=== PATIENT | male | born 1995 | race Caucasian/White ===

== ENCOUNTER 2020-09-27 11:38 | Emergency (ER) | payer MEDICAID, SELFPAY ==
--- NOTE | 2020-09-27 11:40 | ED.PSYCH ---
HPI - Psych General Chief Complaint: Psychiatric Symptoms Stated Complaint: SECTION 12 BY [facility]N,MED NONCOMP,HYPERSEXUAL Time Seen by Provider: 09/27/20 11:40 Source: patient and EMS Mode of arrival: EMS Limitations: other (agitated) History of Present Illness MD complaint: other (agitation, aggressive at skilled nursing, hypersexual refusing medications) Onset (ago): day(s) (few) Duration: intermittent History of same: Yes Relieving factors: none Exacerbating factors: none Context: not taking psychiatric medications Associated symptoms: denies other symptoms Treatments prior to arrival: placed on mental health hold Related Data Home Medications Medication Instructions Recorded Confirmed atenolol 25 mg PO DAILY 09/27/20 09/27/20 benztropine 2 mg PO DAILY 09/27/20 09/27/20 clonazepam 0.5 mg PO DAILY 09/27/20 09/27/20 clonidine HCl 0.1 mg PO DAILY 09/27/20 09/27/20 clozapine 25 mg PO DAILY 09/27/20 09/27/20 haloperidol [Haldol] 5 mg PO Q6H PRN 09/27/20 09/27/20 haloperidol decanoate [Haldol 200 mg IM Q4W 09/27/20 09/27/20 Decanoate] lamotrigine 200 mg PO DAILY 09/27/20 09/27/20 lithium carbonate 900 mg PO DAILY 09/27/20 09/27/20 multivitamin 1 tab PO DAILY 09/27/20 09/27/20 quetiapine [Seroquel] 50 mg PO Q6H PRN 09/27/20 09/27/20 Allergies Allergy/AdvReac Type Severity Reaction Status Date / Time No Known Allergies Allergy Unverified 05/17/20 19:19 [No Known Allergies*] Review of Systems Review of Systems: ROS unable to be obtained due to patient agitated and being uncooperative PMF Past Medical History Attestation statement: The following information was validated with the patient. Medical History Bipolar 1 disorder Schizoaffective disorder Social History Social History Alcohol intake: former Smoking Status: Current every day smoker Use of substances other than those prescribed or required for medical reasons: Unknown Substance Use Type: Marijuana Advance Directives: No Advance Directives Information Provided: No Physical Exam Vital Signs: Vital Signs: Last Vital Signs Temp 98.7 F 09/27/20 11:59 Pulse 74 09/27/20 11:59 Resp 16 09/27/20 11:59 BP 102/85 09/27/20 11:59 Pulse Ox 99 09/27/20 11:59 Body Mass Index 26.9 Appearance: Alert. Oriented X3. agitated, uncooperative Eyes: Pupils equal, round and reactive to light. ENT: Pharynx normal. Neck: Normal inspection. Neck supple. CVS: Normal heart rate and rhythm. Pulses normal. Respiratory: No respiratory distress. Breath sounds normal. Abdomen: Soft and nontender. Skin: Skin warm and dry. Normal skin color. Normal skin turgor. Extremities: No lower extremity edema. No calf ttp Neuro: steady gait, moves all extremities. Psych: hyperverbal, agitated, very upset Course Course Course Narrative: signed out pending [facility]N consult MDM - Psych MDM Narrative Medical decision making narrative: 25 yo male with schizoaffective disorder, bipolar not compliant with medications - here on section 12 for agitation, hypersexual with skilled nursing staff - will need labs, BHN consult Restraints Face to Face Assessment: Face to Face Assessment: Lab Data Result diagrams: 09/27/20 12:23 09/27/20 12:23 Labs: Lab Results 09/27/20 09/27/20 09/27/20 Range/Units 12:23 12:23 12:23 WBC 7.4 (4.8-10.8) X10*3/uL RBC 4.25 L (4.60-5.80) X10*6/uL Hgb 12.3 L (14.0-18.0) g/dl Hct 36.9 L (42-52) % MCV 86.8 (80-98) fL MCH 28.9 (27.0-33.0) pg MCHC 33.3 (31.0-36.0) g/dl RDW 12.4 (11.0-16.0) % Plt Count 237 (160-400) X10*3/uL MPV 10.2 (9.4-12.4) fL Immature Gran % (Auto) 0.1 (0.0-0.4) % Neut % (Auto) 60.1 (45-73) % Lymph % (Auto) 34.5 (20-40) % [place] % (Auto) 5.3 (2-11) % Eos % (Auto) 0.0 (0-4) % Baso % (Auto) 0.0 (0-2) % Lymph # (Auto) 2.6 (1.2-4.9) X10*3/uL Ramsey # (Auto) 0.4 (0.1-1.2) X10*3/uL Eos # (Auto) 0.0 (0.0-0.4) X10*3/uL Baso # (Auto) 0.0 (0.0-0.2) X10*3/uL Abs Immat Gran (auto) 0.01 (0.00-0.03) X10*3/uL Absolute Neuts (auto) 4.5 (2.0-8.3) X10*3/uL Absolute Nucleated RBC 0.000 (0.0-0.012) X10*3/uL Nucleated RBC % (auto) 0.0 (0.0-0.2) /100WBC Sodium 136 (135-145) mmol/L Potassium 3.8 (3.3-5.1) mmol/l Chloride 102 (96-108) mmol/L Carbon Dioxide 27 (22-29) mmol/L Anion Gap 11 L (12-20) BUN 11 (9-16) mg/dL Creatinine 0.81 (0.5-1.4) mg/dL Estim Creat Clear Calc 128.0 Estimated GFR > 60 Random Glucose 116 H (60-115) mg/dL Calcium 8.6 (8.4-10.2) mg/dL Total Bilirubin 0.3 (0.0-1.0) mg/dL Direct Bilirubin < 0.2 (0.0-0.5) mg/dL AST 22 (5-37) U/L ALT 16 (0-40) U/L Alkaline Phosphatase 89 (39-117) U/L Total Protein 5.9 L (6.5-8.0) g/dL Albumin 3.8 (3.5-5.0) g/dL [place] (0.60-1.20) mmol/L COVID-19 ([facility]HEEN) Negative (Negative) COVID-19 Clin Com See Note 09/27/20 Range/Units 12:23 WBC (4.8-10.8) X10*3/uL RBC (4.60-5.80) X10*6/uL Hgb (14.0-18.0) g/dl Hct (42-52) % MCV (80-98) fL MCH (27.0-33.0) pg MCHC (31.0-36.0) g/dl RDW (11.0-16.0) % Plt Count (160-400) X10*3/uL MPV (9.4-12.4) fL Immature Gran % (Auto) (0.0-0.4) % Neut % (Auto) (45-73) % Lymph % (Auto) (20-40) % Ramsey % (Auto) (2-11) % Eos % (Auto) (0-4) % Baso % (Auto) (0-2) % Lymph # (Auto) (1.2-4.9) X10*3/uL [place] # (Auto) (0.1-1.2) X10*3/uL Eos # (Auto) (0.0-0.4) X10*3/uL Baso # (Auto) (0.0-0.2) X10*3/uL Abs Immat Gran (auto) (0.00-0.03) X10*3/uL Absolute Neuts (auto) (2.0-8.3) X10*3/uL Absolute Nucleated RBC (0.0-0.012) X10*3/uL Nucleated RBC % (auto) (0.0-0.2) /100WBC Sodium (135-145) mmol/L Potassium (3.3-5.1) mmol/l Chloride (96-108) mmol/L Carbon Dioxide (22-29) mmol/L Anion Gap (12-20) BUN (9-16) mg/dL Creatinine (0.5-1.4) mg/dL Estim Creat Clear Calc Estimated GFR Random Glucose (60-115) mg/dL Calcium (8.4-10.2) mg/dL Total Bilirubin (0.0-1.0) mg/dL Direct Bilirubin (0.0-0.5) mg/dL AST (5-37) U/L ALT (0-40) U/L Alkaline Phosphatase (39-117) U/L Total Protein (6.5-8.0) g/dL Albumin (3.5-5.0) g/dL [place] 1.05 (0.60-1.20) mmol/L COVID-19 ([facility]HEEN) (Negative) COVID-19 Clin Com Discharge Plan Discharge Clinical Impression: Schizoaffective disorder Qualifiers: Schizoaffective disorder type: other Qualified Code(s): F25.8 - Other schizoaffective disorders Prescriptions: No Action clonidine HCl 0.1 mg Tablet 0.1 mg PO DAILY RF: 0 haloperidol [Haldol] 5 mg Tablet 5 mg PO Q6H PRN (Reason: Agitation) RF: 0 haloperidol decanoate [Haldol Decanoate] 100 mg/mL Solution 200 mg IM Q4W RF: 0 clonazepam 0.5 mg Tablet 0.5 mg PO DAILY RF: 0 lithium carbonate 450 mg Tablet Extended Release 900 mg PO DAILY RF: 0 clozapine 25 mg Tablet,Disintegrating 25 mg PO DAILY RF: 0 quetiapine [Seroquel] 50 mg Tablet 50 mg PO Q6H PRN (Reason: Agitation) RF: 0 multivitamin Tablet 1 tab PO DAILY RF: 0 lamotrigine 200 mg Tablet 200 mg PO DAILY RF: 0 atenolol 25 mg Tablet 25 mg PO DAILY RF: 0 benztropine 2 mg Tablet 2 mg PO DAILY RF: 0
[2020-09-27 11:49] VITALS: BP 102/85; PULSE 74; RESP 16; TEMP 37.1; O2SAT 99; BMI 26.9
[2020-09-27 11:59] VITALS: BP 102/85; PULSE 74; RESP 16; TEMP 37.1; O2SAT 99
--- NOTE | 2020-09-27 12:06 | PC.NURSE ---
Per [facility], pt needs evaluation after being medically cleared
--- NOTE | 2020-09-27 12:22 | PC.NURSE ---
PACT team contacted for currently medicaiton list, med list to be faxed to pod.
[2020-09-27 12:30] LABS: MANUAL DIFF FLAG NO
[2020-09-27 12:36] LABS: Hematocrit 36.9 % (42-52); Hemoglobin 12.3 g/dl (14.0-18.0); Imm Gran Abs Auto 0.01 X10*3/uL (0.00-0.03); Imm Gran Pct Auto 0.1 % (0.0-0.4); Lymphocytes Absolute Auto 2.6 X10*3/uL (1.2-4.9); Lymphocytes Percent Auto 34.5 % (20-40); Mean Corpuscular HGB Conc 33.3 g/dl (31.0-36.0); Mean Corpuscular Hemoglobin 28.9 pg (27.0-33.0); Mean Corpuscular Volume 86.8 fL (80-98); Mean Platelet Volume 10.2 fL (9.4-12.4); Monocytes Absolute Auto 0.4 X10*3/uL (0.1-1.2); Monocytes Percent Auto 5.3 % (2-11); Neutrophils Absolute Auto 4.5 X10*3/uL (2.0-8.3); Neutrophils Percent Auto 60.1 % (45-73); Platelet Count 237 X10*3/uL (160-400); Red Blood Count 4.25 X10*6/uL (4.60-5.80); Red Cell Distribution Width 12.4 % (11.0-16.0); White Blood Count 7.4 X10*3/uL (4.8-10.8)
--- NOTE | 2020-09-27 12:47 | PC.NURSE ---
medication list received from PACT team - [phone]
[2020-09-27 12:51] LABS: COVID-19 Test Negative (Negative)
[2020-09-27 12:55] LABS: Lithium 1.05 mmol/L (0.60-1.20)
[2020-09-27 13:03] LABS: Alanine Aminotransferase 16 U/L (0-40); Albumin Level 3.8 g/dL (3.5-5.0); Alkaline Phosphatase 89 U/L (39-117); Anion Gap 11 (12-20); Aspartate Amino Transferase 22 U/L (5-37); Bilirubin Direct < 0.2 mg/dL (0.0-0.5); Bilirubin Total 0.3 mg/dL (0.0-1.0); Blood Urea Nitrogen 11 mg/dL (9-16); Calcium 8.6 mg/dL (8.4-10.2); Carbon Dioxide 27 mmol/L (22-29); Chloride 102 mmol/L (96-108); Estimated Glomerular Filt Rate > 60; Glucose Random 116 mg/dL (60-115); Potassium 3.8 mmol/l (3.3-5.1); Sodium 136 mmol/L (135-145); Total Protein 5.9 g/dL (6.5-8.0)
--- NOTE | 2020-09-27 13:37 | PC.NURSE ---
JOSEE faxed and called.
[2020-09-27 16:21] VITALS: BP 103/50; PULSE 55; RESP 16; TEMP 36.3; O2SAT 97
--- NOTE | 2020-09-27 17:08 | PC.NURSE ---
[facility] at bedside for eval
[2020-09-27 17:44] LABS: Amphetamine Screen Urine Not Detected (Not Detect); Barbiturates, Urine Not Detected (Not Detect); Benzodiazepines Screen Urine Not Detected (Not Detect); Cannabinoid Screen Urine POSITIVE (Not Detect); Cocaine Screen Urine Not Detected (Not Detect); Opiate Screen Urine Not Detected (Not Detect); Phencyclidine Screen Urine Not Detected (Not Detect)
--- NOTE | 2020-09-27 19:13 | PC.NURSE ---
Report received. PT is laying in bed quietly. Just seen by N. PT will be inpatient bed search.
[2020-09-27 21:34] VITALS: BP 134/77; PULSE 67; RESP 20; TEMP 36.3; O2SAT 97
[2020-09-28] VITALS: BP 94/64; PULSE 58; RESP 16; TEMP 36.1; O2SAT 97
[2020-09-28 06:00] VITALS: BP 103/55; PULSE 50; RESP 16; TEMP 36.3; O2SAT 98
--- NOTE | 2020-09-28 07:03 | PC.NURSE ---
Report received. PT currently sleeping, respirations even and unlabored, in no apprent distress. Pt is inpatient bedsearch.
[2020-09-28] MEDS: clonazePAM 0.5 MG TABLET PO (09:08)
[2020-09-28] MEDS: Lithium Carbonate ER 450 MG TABLET.ER 900 MG PO (09:08)
[2020-09-28] MEDS: Benztropine Mesylate 1 MG TABLET 2 MG PO (09:08)
[2020-09-28] MEDS: cloZAPine 25 MG TABLET PO (09:08)
[2020-09-28] MEDS: lamoTRIgine 100 MG TABLET 200 MG PO (09:08)
[2020-09-28] MEDS: Multivitamin TABLET 1 TAB PO (09:09)
[2020-09-28 09:11] VITALS: BP 144/73; PULSE 63
[2020-09-28] MEDS: atenoloL 25 MG TABLET PO (09:11)
[2020-09-28] MEDS: cloNIDine HCL 0.1 MG TABLET PO (09:11)
[2020-09-28 18:06] VITALS: BP 116/65; RESP 18
[2020-09-28] MEDS: QUEtiapine Fumarate 50 MG TABLET PO (20:00)
[2020-09-28] MEDS: HaloperidoL 5 MG TABLET PO (20:00)
--- NOTE | 2020-09-28 20:07 | PC.NURSE ---
Patient visible, hyper-verbal, disorganized thought process, thought content paranoid, tangential, just got seen by [facility], no update on plan, patient accepted PRN Haldol 5 mg and Serequel 50 mg as ordered, will continue to monitor.
[2020-09-28 21:12] VITALS: BP 118/66; PULSE 58; RESP 17; TEMP 36.7; O2SAT 100
--- NOTE | 2020-09-28 22:00 | PC.NURSE ---
Patient in his room currently, struggling for sleep, out of room multiple times for food and refreshment, no behavior concerns at this time, denied distress, will continue to monitor.
[2020-09-29] VITALS (7 sets, daily range): BP systolic 105–142; BP diastolic 50–79; PULSE 68–78; RESP 16–20; TEMP 36.6–36.9; O2SAT 93–98
--- NOTE | 2020-09-29 07:08 | PC.NURSE ---
Report received from JHOAN Coreas. Pt resting, resp unlabored.
[2020-09-29] MEDS: clonazePAM 0.5 MG TABLET PO (08:51)
[2020-09-29] MEDS: lamoTRIgine 100 MG TABLET 200 MG PO (08:51)
[2020-09-29] MEDS: cloNIDine HCL 0.1 MG TABLET PO (08:52)
[2020-09-29] MEDS: Benztropine Mesylate 1 MG TABLET 2 MG PO (08:52)
[2020-09-29] MEDS: Lithium Carbonate ER 450 MG TABLET.ER 900 MG PO (08:52)
[2020-09-29] MEDS: Multivitamin TABLET 1 TAB PO (08:52)
[2020-09-29] MEDS: atenoloL 25 MG TABLET PO (08:53)
[2020-09-29] MEDS: cloZAPine 25 MG TABLET PO (08:57)
--- NOTE | 2020-09-29 09:05 | PC.NURSE ---
Pt awake, ate breakfast, cooperative w/ medications. Pt cheerful, laughing inappropriately at times, pleasant
--- NOTE | 2020-09-29 10:51 | PC.NURSE ---
Pt resting, resp unlabored. Pt seen by JOSEE,
--- NOTE | 2020-09-29 12:20 | PC.NURSE ---
Pt resting, resp unlabored.
--- NOTE | 2020-09-29 13:19 | PC.NURSE ---
Pt awake, affect even, pleasant.
--- NOTE | 2020-09-29 14:07 | PC.NURSE ---
Pt resting, resp unlabored.
[2020-09-29] MEDS: QUEtiapine Fumarate 50 MG TABLET PO ×2 (15:06→21:49)
--- NOTE | 2020-09-29 15:07 | PC.NURSE ---
Pt reporting anxiety r/t to length of stay and requesting PRN seroquel for anxiety.
--- NOTE | 2020-09-29 15:33 | PC.NURSE ---
Report received, pt on the phone at current, calm and cooperative, no complaints at this time.
--- NOTE | 2020-09-29 17:04 | PC.NURSE ---
Pt watching TV in the common area, calm and cooperative, no complaints at this time.
--- NOTE | 2020-09-29 18:17 | PC.NURSE ---
Appears to be responding to internal stimuli, laughing, self-dialoguing.
--- NOTE | 2020-09-29 19:02 | PC.NURSE ---
Patient sitting in milieu watching TV, calm and quiet, denied distress, per report patient had decent day with good behavioral control, will continue to monitor.
[2020-09-29] MEDS: HaloperidoL 5 MG TABLET PO (21:49)
[2020-09-30] VITALS (7 sets, daily range): BP systolic 112–139; BP diastolic 55–87; PULSE 67–92; RESP 20; TEMP 36.6–36.8; O2SAT 97–98
--- NOTE | 2020-09-30 07:38 | PC.NURSE ---
Report received from JHOAN Coreas. Pt resting, resp unlabored.
[2020-09-30] MEDS: cloNIDine HCL 0.1 MG TABLET PO (08:42)
[2020-09-30] MEDS: Benztropine Mesylate 1 MG TABLET 2 MG PO (08:42)
[2020-09-30] MEDS: Multivitamin TABLET 1 TAB PO (08:43)
[2020-09-30] MEDS: lamoTRIgine 100 MG TABLET 200 MG PO (08:43)
[2020-09-30] MEDS: Lithium Carbonate ER 450 MG TABLET.ER 900 MG PO (08:43)
[2020-09-30] MEDS: cloZAPine 25 MG TABLET PO (08:43)
[2020-09-30] MEDS: atenoloL 25 MG TABLET PO (08:49)
[2020-09-30] MEDS: clonazePAM 0.5 MG TABLET PO (08:49)
--- NOTE | 2020-09-30 08:56 | PC.NURSE ---
Pt awake, pleasant, occasionally laughing to himself, cooperative w/ medications. Pt seen by JOSEE.
[2020-09-30] MEDS: QUEtiapine Fumarate 50 MG TABLET PO ×2 (09:29→21:11)
--- NOTE | 2020-09-30 11:53 | PC.NURSE ---
Pt resting, resp unlabored
[2020-09-30] MEDS: HaloperidoL 5 MG TABLET PO ×2 (13:42→21:11)
--- NOTE | 2020-09-30 13:44 | PC.NURSE ---
Pt requesting medication for anxiety- given as requested.
--- NOTE | 2020-09-30 14:31 | PC.NURSE ---
Pt resting in room, affect even.
--- NOTE | 2020-09-30 15:38 | PC.NURSE ---
Pt listening to music on headphones, pacing, states medications effective for anxiety.
--- NOTE | 2020-09-30 16:33 | PC.NURSE ---
Pt listening to headphones - required redirection x2 for mildly intrusive behaviors- accepted redirection without difficulty.
--- NOTE | 2020-09-30 17:29 | PC.NURSE ---
Pt out in common area, watching television with another pt.
--- NOTE | 2020-09-30 18:13 | PC.NURSE ---
Pt appears increasingly restless, currently in common area watching television while listening to headphones.
--- NOTE | 2020-09-30 19:45 | PC.NURSE ---
Patient wandering in POD, hyper-verbal, hyperactive, mood pleasant, denied distress, express needs well, in good behavioral control, will continue to monitor.
--- NOTE | 2020-09-30 22:00 | PC.NURSE ---
Patient requested his PRN, administered as ordered, denied distress, patient continues to hyperactive, will continue to monitor.
[2020-10-01 06:00] VITALS: RESP 18; TEMP 36.4
[2020-10-01 08:45] VITALS: BP 108/66; PULSE 60; RESP 16; TEMP 37.1; O2SAT 98
[2020-10-01 09:28] VITALS: BP 108/66; PULSE 60
[2020-10-01] MEDS: lamoTRIgine 100 MG TABLET 200 MG PO (09:28)
[2020-10-01] MEDS: atenoloL 25 MG TABLET PO (09:28)
[2020-10-01] MEDS: Lithium Carbonate ER 450 MG TABLET.ER 900 MG PO (09:28)
[2020-10-01 09:29] VITALS: BP 108/66; PULSE 60
[2020-10-01] MEDS: clonazePAM 0.5 MG TABLET PO (09:29)
[2020-10-01] MEDS: cloNIDine HCL 0.1 MG TABLET PO (09:29)
[2020-10-01] MEDS: cloZAPine 25 MG TABLET PO (09:29)
[2020-10-01] MEDS: Multivitamin TABLET 1 TAB PO (09:30)
[2020-10-01] MEDS: Benztropine Mesylate 1 MG TABLET 2 MG PO (09:30)
[2020-10-01 12:00] VITALS: RESP 16
[2020-10-01] MEDS: QUEtiapine Fumarate 50 MG TABLET PO (13:04)
[2020-10-01 17:12] LABS: COVID-19 Test Negative (Negative); IDNOW Serial# 9DD0AD1C
--- NOTE | 2020-10-01 19:05 | PC.NURSE ---
Report received. PT is watching TV in the common area. Calm and cooperative. Inpatient bed search.
== END 2020-10-01 21:30 ==
PROVIDERS: Physician Assistant; Emergency Provider Emergency Medicine
DX: F25.8 Other schizoaffective disorders (principal); Z20.822 Contact with and (suspected) exposure to COVID-19; Z91.14 Patient's other noncompliance with medication regimen; F17.200 Nicotine dependence, unspecified, uncomplicated
CPT/HCPCS: 36415; 80048; 80076; 80178; 80307; 85025; 87635; 99285

== ENCOUNTER 2020-11-22 11:22 | Outpatient (REF) | payer MEDICAID, SELFPAY | END 2020-11-22 11:23 | disposition home or self-care (01) | LOC: HO.LAB 11:22 | PROVIDERS: Visit Provider Internal Medicine | DX: Z20.822 Contact with and (suspected) exposure to COVID-19 (principal) | CPT/HCPCS: 36415; C9803; U0003; U0005 ==

== ENCOUNTER 2020-11-26 10:48 | Outpatient (REF) | payer MEDICAID, SELFPAY | END 2020-11-26 10:49 | disposition home or self-care (01) | LOC: HO.LAB 10:48 | PROVIDERS: Visit Provider Internal Medicine | DX: Z20.822 Contact with and (suspected) exposure to COVID-19 (principal) | CPT/HCPCS: 36415; C9803; U0003; U0005 ==

== ENCOUNTER 2021-08-14 13:37 | Outpatient (REF) | payer MEDICAID, SELFPAY ==
[2021-08-14 14:13] LABS: Neutrophils Absolute Auto 3.6 x10*3/uL (2.0-8.3); White Blood Count 6.4 X10*3/uL (4.8-10.8)
[2021-08-21 14:11] LABS: Clozapine (Clozaril) 70 mcg/L; Norclozapine 43 mcg/L (25-400)
== END 2021-08-14 13:38 | disposition home or self-care (01) ==
LOC: HO.LAB 13:37
PROVIDERS: PCP Family Medicine; Visit Provider Psychiatry & Neurology Psychiatry
DX: Z79.899 Other long term (current) drug therapy (principal)
CPT/HCPCS: 36415; 80159; 85048

== ENCOUNTER 2021-09-04 11:35 | Outpatient (REF) | payer MEDICAID, SELFPAY ==
[2021-09-04 12:05] LABS: Neutrophils Absolute Auto 5.6 x10*3/uL (2.0-8.3); White Blood Count 8.3 X10*3/uL (4.8-10.8)
[2021-09-09 11:37] LABS: Clozapine (Clozaril) 66 mcg/L; Norclozapine 41 mcg/L (25-400)
== END 2021-09-04 11:36 | disposition home or self-care (01) ==
LOC: HO.LAB 11:35
PROVIDERS: Visit Provider Psychiatry & Neurology Psychiatry
DX: Z79.899 Other long term (current) drug therapy (principal)
CPT/HCPCS: 36415; 80159; 85048

== ENCOUNTER 2021-09-12 11:20 | Outpatient (REF) | payer MEDICAID, SELFPAY ==
[2021-09-12 11:57] LABS: White Blood Count 8.1 X10*3/uL (4.8-10.8)
[2021-09-18 09:42] LABS: Clozapine (Clozaril) 143 mcg/L; Norclozapine 67 mcg/L (25-400)
== END 2021-09-12 11:21 | disposition home or self-care (01) ==
LOC: HO.LAB 11:20
PROVIDERS: PCP Family Medicine; Visit Provider Psychiatry & Neurology Psychiatry
DX: Z79.899 Other long term (current) drug therapy (principal)
CPT/HCPCS: 36415; 80159; 85048

== ENCOUNTER 2021-09-19 10:18 | Outpatient (REF) | payer MEDICAID, SELFPAY ==
[2021-09-19 11:09] LABS: Neut%MD 55.4 %; Neutrophils Absolute Auto 3.5 x10*3/uL (2.0-8.3); WBCANC 6.4 X10*3/uL; White Blood Count 6.4 X10*3/uL (4.8-10.8)
[2021-09-24 10:47] LABS: Clozapine (Clozaril) 208 mcg/L; Norclozapine 126 mcg/L (25-400)
== END 2021-09-19 10:19 | disposition home or self-care (01) ==
LOC: HO.LABR 10:18
PROVIDERS: PCP Family Medicine; Visit Provider Psychiatry & Neurology Psychiatry
DX: Z79.899 Other long term (current) drug therapy (principal)
CPT/HCPCS: 36415; 80159; 85048

== ENCOUNTER 2022-03-17 09:50 | Inpatient (IN) | payer OTHER, SELFPAY ==
--- NOTE | ~2022-03-17 | XR_ITS ---
EXAMINATION: XR CHEST CLINICAL INFORMATION: Cough COMPARISON: None TECHNIQUE: Frontal view of the chest was obtained. FINDINGS: No significant abnormality is noted involving the heart, lungs, mediastinum, bony thorax or soft tissues. XR/XR chest 1V IMPRESSION: Unremarkable examination.
[2022-03-17 09:59] VITALS: BP 120/92; BP 127/69; PULSE 60; PULSE 69; RESP 16; TEMP 36.2; O2SAT 98; O2SAT 99; BMI 28.7
--- NOTE | 2022-03-17 10:10 | ED_ITS ---
HPI - Psych General Chief Complaint: Psychiatric Symptoms Stated Complaint: SEC 12 PER EMS Time Seen by Provider: 03/17/22 10:09 Source: patient Mode of arrival: ambulatory Limitations: no limitations History of Present Illness HPI Narrative: 18-year-old male states he was being closer old is going history is adult black patient comes in on a Section 12 by police patient is acutely paranoid and has been takes medication for several months he states they have not been able to give his medications. MD complaint: altered mental status Related Data Home Medications Medication Instructions Recorded Confirmed atenolol 25 mg tablet 25 mg PO DAILY 09/27/20 09/27/20 benztropine 2 mg tablet 2 mg PO DAILY 09/27/20 09/27/20 clonazepam 0.5 mg tablet 0.5 mg PO DAILY 09/27/20 09/27/20 clonidine HCl 0.1 mg tablet 0.1 mg PO DAILY 09/27/20 09/27/20 clozapine 25 mg disintegrating 25 mg PO DAILY 09/27/20 09/27/20 tablet haloperidol 5 mg tablet 5 mg PO Q6H PRN Agitation 09/27/20 09/27/20 haloperidol decanoate 100 mg/mL 200 mg IM Q4W 09/27/20 09/27/20 intramuscular solution (Haldol Decanoate) lamotrigine 200 mg tablet 200 mg PO DAILY 09/27/20 09/27/20 lithium carbonate 450 mg 900 mg PO DAILY 09/27/20 09/27/20 tablet,extended release multivitamin 1 tab PO DAILY 09/27/20 09/27/20 quetiapine 50 mg tablet (Seroquel) 50 mg PO Q6H PRN Agitation 09/27/20 09/27/20 Allergies Allergy/AdvReac Type Severity Reaction Status Date / Time No Known Allergies Allergy Unverified 05/17/20 19:19 [No Known Allergies*] Review of Systems Review of Systems: Review of systems: General: Patient denies any fever chills recent illness or falls Musculoskeletal: Denies back pain or body aches or other injuries HEENT: denies headache, runny nose, ear pain Respiratory: denies shortness of breath, cough Cardiovascular: no chest pain or palpitations : denies dysuria, frequency Abdomen: no nausea vomiting denies abdominal pain Extremities: no swelling, no pain Skin: no diaphoresis Yes all other systems are reviewed and are negative PMFSH Past Medical History Attestation statement: The following information was validated with the patient. Medical History Bipolar 1 disorder Schizoaffective disorder Social History Social History Alcohol intake: former Substance Use Type: Marijuana Physical Exam Vital Signs: Vital Signs: Last Vital Signs Temp 97.2 F 03/17/22 09:59 Pulse 60 03/17/22 09:59 Resp 16 03/17/22 09:59 BP 127/69 03/17/22 09:59 Pulse Ox 98 03/17/22 09:59 O2 Del Method 03/17/22 09:59 BMI result Body Mass Index 28.7 General: Well-appearing well-nourished in no signs of distress HEENT: Normocephalic atraumatic Neck: No signs of JVD, no masses no tenderness or lymphadenopathy Cardiovascular: Regular rate and rhythm Respiratory: Clear to auscultation bilaterally Abdomen: Soft nontender no masses rectal exam 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 Extremities: Normal pedal pulses no signs of edema Skin: Dry warm no rashes Back: No tenderness full ROM MDM - Psych MDM Narrative Medical decision making narrative: Patient is acutely psychotic although the patient evaluated hopefully give the patient as inpatient bed search. Differential Diagnosis Differential diagnosis: Likely acute psychosis Discharge Plan Discharge Clinical Impression: Acute psychosis Patient Disposition: Still a Patient Prescriptions: No Action clonidine HCl 0.1 mg Tablet 0.1 mg PO DAILY haloperidol [Haldol] 5 mg Tablet 5 mg PO Q6H PRN (Reason: Agitation) haloperidol decanoate [Haldol Decanoate] 100 mg/mL Solution 200 mg IM Q4W Label Comments: last recieved 09/02/20 clonazepam 0.5 mg Tablet 0.5 mg PO DAILY lithium carbonate 450 mg Tablet Extended Release 900 mg PO DAILY clozapine 25 mg Tablet,Disintegrating 25 mg PO DAILY Rx Instructions: start 09/22/20 for 7 days quetiapine [Seroquel] 50 mg Tablet 50 mg PO Q6H PRN (Reason: Agitation) multivitamin Tablet 1 tab PO DAILY lamotrigine 200 mg Tablet 200 mg PO DAILY atenolol 25 mg Tablet 25 mg PO DAILY benztropine 2 mg Tablet 2 mg PO DAILY
--- NOTE | 2022-03-17 11:51 | MHC.CARE ---
CARE Team left with PACT Program regarding [place] Order.
--- NOTE | 2022-03-17 14:57 | PC.NURSE ---
Attempt made to engage pt in individual OT tx this date however upon approach pt presents with irritable mood and is unreceptive at this time. Pts nurse is aware.
[2022-03-17 16:10] LABS: MANUAL DIFF FLAG NO
[2022-03-17 16:23] LABS: Basophils Percent Auto 0.3 % (0-2); Hematocrit 43.4 % (42.0-52.0); Hemoglobin 14.8 g/dl (14.0-18.0); Imm Gran Abs Auto 0.02 X10*3/uL (0.00-0.03); Imm Gran Pct Auto 0.3 % (0.0-0.4); Lymphocytes Absolute Auto 2.9 X10*3/uL (1.2-4.9); Lymphocytes Percent Auto 40.3 % (20-40); Mean Corpuscular HGB Conc 34.1 g/dl (31.0-36.0); Mean Corpuscular Hemoglobin 27.9 pg (27.0-33.0); Mean Corpuscular Volume 81.9 fL (80.0-98.0); Mean Platelet Volume 10.4 fL (9.4-12.4); Monocytes Absolute Auto 0.5 X10*3/uL (0.1-1.2); Monocytes Percent Auto 7.5 % (2-11); Neutrophils Absolute Auto 3.7 x10*3/uL (2.0-8.3); Neutrophils Percent Auto 51.6 % (45-73); Platelet Count 256 X10*3/uL (160-400); Red Cell Distribution Width 13.4 % (11.0-16.0); White Blood Count 7.2 X10*3/uL (4.8-10.8)
[2022-03-17 16:37] LABS: Acetaminophen LAB < 1 mcg/mL (<30); Alanine Aminotransferase 20 U/L (0-40); Albumin Level 4.5 g/dL (3.5-5.0); Alkaline Phosphatase 128 U/L (39-117); Anion Gap 11 (12-20); Aspartate Amino Transferase 25 U/L (5-37); Bilirubin Total 0.7 mg/dL (0.0-1.0); Blood Urea Nitrogen 9 mg/dL (9-16); Calcium 9.5 mg/dL (8.4-10.2); Carbon Dioxide 26 mmol/L (22-29); Chloride 106 mmol/L (96-108); Creatinine Clr Calc Pharmacy 138.4; Estimated Glomerular Filt Rate > 60; Ethanol < 10 mg/dL; Glucose Random 100 mg/dL (60-115); Potassium 4.3 mmol/L (3.3-5.1); Salicylate < 5.0 mg/dL (15-30); Sodium 139 mmol/L (135-145); Total Protein 7.1 g/dL (6.5-8.0)
[2022-03-17] MEDS: LORazepam 1 MG TABLET 2 MG PO (20:33)
[2022-03-17] MEDS: HaloperidoL 5 MG TABLET 10 MG PO (20:33)
--- NOTE | 2022-03-18 | ECG_ITS ---
Test Reason : med clearance Blood Pressure : / mmHG Vent. Rate : 056 BPM Atrial Rate : 056 BPM P-R Int : 142 ms QRS Dur : 084 ms QT Int : 406 ms P-R-T Axes : 032 070 052 degrees QTc Int : 391 ms Sinus bradycardia Otherwise normal ECG When compared with ECG of 03-JAN-2020 09:25, Vent. rate has decreased BY 40 BPM Referred By: Kiley Melvin Electronically Signed By:Frank Christine
--- NOTE | 2022-03-18 06:02 | PC.NURSE ---
Patient received Haldol 10 mg PO and Ativan 2 mg PO at 2032 for exhibiting disrupting behavior such loud, using verbally abusive language, self dialoguing extensively. Patient is off his medication, Bertin order not followed, copy of Steven's order in patient's chart, psych consult ordered for medication review, disposition per [facility] is section 12 inpatient bed search, behavior unpredictable, VSS, urine and covid pending at this time, will continue to monitor.
[2022-03-18] MEDS: LORazepam 1 MG TABLET PO ×3 (06:14→23:55)
[2022-03-18] MEDS: HaloperidoL 5 MG TABLET PO ×2 (06:14→13:23)
--- NOTE | 2022-03-18 06:21 | PC.NURSE ---
Pt given PRN haldol and ativan to aid in decreasing discomfort. While awake for medications, pt was swabbed for COVID and vital signs were obtained. Pt remained calm and cooperative with staff.
[2022-03-18 06:26] VITALS: BP 91/49; PULSE 79; RESP 16; TEMP 36.4; O2SAT 97
[2022-03-18 06:45] LABS: COVID-19 Test Negative (Negative)
--- NOTE | 2022-03-18 07:17 | PC.NURSE ---
patient appears to remain asleep at present respirations are even and unlabored patient appears in no distress
[2022-03-18 07:47] VITALS: BP 112/56; PULSE 58; RESP 19; TEMP 36.9; O2SAT 96
[2022-03-18 15:00] LABS: Amphetamine Screen Urine Not Detected (Not Detect); Barbiturates, Urine Not Detected (Not Detect); Benzodiazepines Screen Urine Not Detected (Not Detect); Cannabinoid Screen Urine POSITIVE (Not Detect); Cocaine Screen Urine Not Detected (Not Detect); Fentanyl, urine Not Detected (Not Detect); Opiate Screen Urine Not Detected (Not Detect); Phencyclidine Screen Urine Not Detected (Not Detect)
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
[2022-03-18] MEDS: hydrOXYzine HCL 25 MG TABLET PO (17:18)
[2022-03-18 17:49] VITALS: BP 123/82; PULSE 100; RESP 16; TEMP 36.6; O2SAT 100
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
[2022-03-18] MEDS: cloZAPine 25 MG TABLET 12.5 MG PO (21:14)
[2022-03-18] MEDS: diphenhydrAMINE HCL 25 MG TABLET 50 MG PO (23:55)
[2022-03-19 09:00] VITALS: BP 127/61; PULSE 73; RESP 18; TEMP 36.8; O2SAT 95
[2022-03-19 09:17] LABS: Estimated Average Glucose 105 mg/dL; Hemoglobin A1c % 5.3 %
[2022-03-19] MEDS: cloZAPine 25 MG TABLET 12.5 MG PO (09:17)
[2022-03-19 09:43] LABS: Alanine Aminotransferase 20 U/L (0-40); Albumin Level 4.4 g/dL (3.5-5.0); Alkaline Phosphatase 120 U/L (39-117); Anion Gap 11 (12-20); Aspartate Amino Transferase 21 U/L (5-37); Bilirubin Total 0.4 mg/dL (0.0-1.0); Blood Urea Nitrogen 15 mg/dL (9-16); Calcium 9.5 mg/dL (8.4-10.2); Carbon Dioxide 23 mmol/L (22-29); Chloride 108 mmol/L (96-108); Cholesterol 169 mg/dL; Creatinine Clr Calc Pharmacy 153.8; Estimated Glomerular Filt Rate > 60; Glucose Fasting 96 mg/dL (60-99); HDL Cholesterol 27 mg/dL; LDL Cholesterol Calculated 121 mg/dl; Potassium 4.4 mmol/L (3.3-5.1); Sodium 138 mmol/L (135-145); Triglycerides 105 mg/dL
[2022-03-19 10:03] LABS: Thyroid Stimulating Hormone 0.34 uIU/mL (0.32-4.0)
[2022-03-19] MEDS: LORazepam 1 MG TABLET PO ×2 (10:56→19:58)
[2022-03-19] MEDS: Acetaminophen 325 MG TABLET 650 MG PO ×2 (10:56→21:21)
[2022-03-19] MEDS: HaloperidoL 5 MG TABLET PO ×2 (10:56→21:21)
[2022-03-19 11:32] LABS: Vitamin B12 583 pg/mL (200-900)
[2022-03-19] MEDS: hydrOXYzine HCL 25 MG TABLET PO ×2 (12:25→21:21)
[2022-03-19] MEDS: Bacitracin Oint 14 GM TUBE 1 APPL TOPICAL (14:01)
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
[2022-03-19 19:50] VITALS: BP 155/97; PULSE 99; RESP 18; O2SAT 96
[2022-03-19] MEDS: diphenhydrAMINE HCL 25 MG TABLET 50 MG PO (19:58)
[2022-03-19] MEDS: cloZAPine 25 MG TABLET PO (19:58)
[2022-03-19] MEDS: traZODone HCL 50 MG TABLET PO ×2 (21:21→22:58)
[2022-03-20] MEDS: Magnesium Hydrox/Alum Hydrox 30 ML ORAL.SUSP PO ×2 (00:19→19:38)
[2022-03-20] MEDS: traZODone HCL 50 MG TABLET PO ×2 (02:41→22:29)
--- NOTE | 2022-03-20 03:26 | PC.NURSE ---
Patient observed awake and requesting food items. No issues reported.
[2022-03-20] MEDS: Calcium Carbonate 750 MG TAB.CHEW PO ×2 (05:40→17:02)
[2022-03-20] MEDS: cloZAPine 25 MG TABLET PO (08:40)
[2022-03-20 10:00] VITALS: BP 108/56; PULSE 68; RESP 16; TEMP 36.7; O2SAT 96
[2022-03-20 11:00] VITALS: BMI 28.8
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
--- NOTE | 2022-03-20 17:45 | PC.NURSE ---
Pt was walking down the halls and yelled will someone just please have sex with me! When this RN was assisting another patient, pt walked next to RN and said wow you are sexy as fuck. This RN told patient that is not appropriate. Pt then continued to ask do you have a boyfriend? Would you ever date me or would you not because I'm not a rockstar. Pt had to be frequently redirected for sexually inappropriate comments.
[2022-03-20 19:30] VITALS: BP 151/72; PULSE 102; RESP 18; TEMP 36.2; O2SAT 98
[2022-03-20] MEDS: cloZAPine 25 MG TABLET 37.5 MG PO (20:32)
[2022-03-20] MEDS: LORazepam 1 MG TABLET PO (20:33)
[2022-03-20] MEDS: HaloperidoL 5 MG TABLET PO (20:33)
[2022-03-20] MEDS: hydrOXYzine HCL 25 MG TABLET PO (23:08)
[2022-03-21 09:35] VITALS: BP 134/77; PULSE 76; RESP 16; TEMP 36.7; O2SAT 95
[2022-03-21] MEDS: cloZAPine 25 MG TABLET 37.5 MG PO (09:36)
[2022-03-21] MEDS: Acetaminophen 325 MG TABLET 650 MG PO (12:16)
[2022-03-21] MEDS: hydrOXYzine HCL 25 MG TABLET PO (12:17)
[2022-03-21] MEDS: Magnesium Hydrox/Alum Hydrox 30 ML ORAL.SUSP PO ×2 (12:17→21:23)
[2022-03-21] MEDS: Fluticasone Propionate Nasal 16 GM SPRAY 1 SPRAY NOSTRIL-B (14:11)
[2022-03-21] MEDS: guaiFENesin LA 600 MG TAB.ER.12H PO (14:11)
[2022-03-21 14:42] LABS: COVID-19 Test Negative (Negative)
[2022-03-21] MEDS: LORazepam 1 MG TABLET PO (17:11)
[2022-03-21] MEDS: HaloperidoL 5 MG TABLET PO (17:11)
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
[2022-03-21] MEDS: Paliperidone ER 3 MG TAB.ER.24 PO (20:39)
[2022-03-21 20:40] VITALS: BP 133/93; PULSE 117; RESP 20; TEMP 35.8; O2SAT 98
[2022-03-21] MEDS: Lithium Carbonate ER 450 MG TABLET.ER PO (20:40)
[2022-03-21] MEDS: cloZAPine 25 MG TABLET PO (20:40)
[2022-03-22 09:13] VITALS: BP 153/72; PULSE 91; RESP 17; TEMP 36.6; O2SAT 96
[2022-03-22] MEDS: cloZAPine 25 MG TABLET PO (09:20)
[2022-03-22] MEDS: Lithium Carbonate ER 450 MG TABLET.ER PO ×2 (09:20→22:26)
[2022-03-22] MEDS: Fluticasone Propionate Nasal 16 GM SPRAY 1 SPRAY NOSTRIL-B ×2 (09:21→22:44)
[2022-03-22] MEDS: LORazepam 1 MG TABLET PO ×2 (11:37→22:26)
[2022-03-22] MEDS: HaloperidoL 5 MG TABLET PO ×3 (11:37→22:26)
[2022-03-22] MEDS: guaiFENesin LA 600 MG TAB.ER.12H PO (11:39)
[2022-03-22] MEDS: Magnesium Hydrox/Alum Hydrox 30 ML ORAL.SUSP PO (11:42)
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
--- NOTE | 2022-03-22 13:26 | PC.NURSE ---
This RN was standing in hallway when patient approached and asked for a PRN. This RN told the patient yes and to meet at the nurses station. Patient stated Thank you nurse I have to go get my bracelet as patient walked past nurse he rubbed arm/elbow. Patient told to please do not touch me
[2022-03-22] MEDS: hydrOXYzine HCL 25 MG TABLET PO (13:41)
[2022-03-22] MEDS: LORazepam 1 MG TABLET 2 MG PO (16:11)
[2022-03-22] MEDS: cloZAPine 25 MG TABLET 12.5 MG PO (22:26)
[2022-03-22] MEDS: Paliperidone ER 6 MG TAB.ER.24 PO (22:26)
[2022-03-23 06:00] VITALS: BP 150/89; PULSE 124; RESP 18; TEMP 36.6; O2SAT 97
[2022-03-23] MEDS: Lithium Carbonate ER 450 MG TABLET.ER PO ×2 (09:09→19:38)
[2022-03-23] MEDS: cloZAPine 25 MG TABLET 12.5 MG PO (09:10)
[2022-03-23] MEDS: Fluticasone Propionate Nasal 16 GM SPRAY 1 SPRAY NOSTRIL-B (09:12)
[2022-03-23] MEDS: guaiFENesin LA 600 MG TAB.ER.12H PO ×2 (09:17→19:41)
[2022-03-23] MEDS: HaloperidoL 5 MG TABLET PO ×2 (09:17→16:46)
[2022-03-23] MEDS: LORazepam 1 MG TABLET PO ×2 (09:18→16:46)
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
[2022-03-23] MEDS: Mineral Oil/Petrolatum,White 106 GM Tube 1 APPL TOPICAL (09:30)
[2022-03-23] MEDS: Bacitracin Oint 14 GM TUBE 1 APPL TOPICAL (09:31)
[2022-03-23] MEDS: hydrOXYzine HCL 25 MG TABLET PO ×2 (11:39→17:17)
[2022-03-23] MEDS: chlorproMAZINE HCl 100 MG TABLET PO (18:27)
[2022-03-23] MEDS: traZODone HCL 50 MG TABLET PO (19:38)
[2022-03-23] MEDS: Paliperidone ER 6 MG TAB.ER.24 PO (19:38)
[2022-03-23] MEDS: Calcium Carbonate 750 MG TAB.CHEW PO (20:19)
[2022-03-24 06:00] VITALS: BP 127/92; PULSE 120; TEMP 36.4; O2SAT 96
[2022-03-24 09:04] LABS: Neut%MD 54.6 %; Neutrophils Absolute Auto 4.1 x10*3/uL (2.0-8.3); WBCANC 7.6 X10*3/uL
[2022-03-24] MEDS: Fluticasone Propionate Nasal 16 GM SPRAY 1 SPRAY NOSTRIL-B (10:18)
[2022-03-24] MEDS: Mineral Oil/Petrolatum,White 106 GM Tube 1 APPL TOPICAL (10:19)
[2022-03-24] MEDS: Lithium Carbonate ER 450 MG TABLET.ER PO ×2 (10:19→20:17)
[2022-03-24] MEDS: LORazepam 1 MG TABLET PO ×3 (10:20→20:18)
[2022-03-24] MEDS: HaloperidoL 5 MG TABLET PO ×3 (10:20→20:18)
[2022-03-24] MEDS: Bacitracin Oint 14 GM TUBE 1 APPL TOPICAL (10:20)
[2022-03-24] MEDS: Paliperidone ER 6 MG TAB.ER.24 PO ×2 (11:01→20:17)
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
--- NOTE | 2022-03-24 19:20 | ECG_ITS ---
Test Reason : MED CLEARANCE Blood Pressure : / mmHG Vent. Rate : 096 BPM Atrial Rate : 096 BPM P-R Int : 144 ms QRS Dur : 084 ms QT Int : 340 ms P-R-T Axes : 000 175 142 degrees QTc Int : 429 ms Artifact in tracing Normal sinus rhythm Right axis deviation Abnormal ECG When compared with ECG of 18-MAR-2022 14:44, Vent. rate has increased BY 40 BPM QRS axis Shifted right Referred By: Kiley Melvin Electronically Signed By:NURY HAYNES
[2022-03-24] MEDS: traZODone HCL 50 MG TABLET PO (20:17)
[2022-03-24] MEDS: Calcium Carbonate 750 MG TAB.CHEW PO (20:18)
[2022-03-24] MEDS: hydrOXYzine HCL 25 MG TABLET PO (20:18)
[2022-03-24] MEDS: guaiFENesin LA 600 MG TAB.ER.12H PO (22:59)
[2022-03-24] MEDS: Sodium Chloride 0.65 % Nasal 44 ML SPRBTL 1 SPRAY NOSTRIL-B (22:59)
[2022-03-24] MEDS: Acetaminophen 325 MG TABLET 650 MG PO (23:54)
[2022-03-24] MEDS: chlorproMAZINE HCl 25 MG TABLET 50 MG PO (23:54)
[2022-03-25 06:00] VITALS: BP 122/64; PULSE 88; RESP 18; TEMP 36.7; O2SAT 94
[2022-03-25] MEDS: Lithium Carbonate ER 450 MG TABLET.ER PO ×2 (10:12→20:12)
[2022-03-25] MEDS: Paliperidone ER 6 MG TAB.ER.24 PO ×2 (10:12→20:12)
[2022-03-25] MEDS: Omeprazole 20 MG CAPSULE.DR PO (13:20)
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
[2022-03-25] MEDS: HaloperidoL 5 MG TABLET PO (14:55)
[2022-03-25] MEDS: Sodium Chloride 0.65 % Nasal 44 ML SPRBTL 1 SPRAY NOSTRIL-B ×3 (14:55→20:17)
[2022-03-25] MEDS: LORazepam 1 MG TABLET PO (14:55)
[2022-03-25] MEDS: guaiFENesin LA 600 MG TAB.ER.12H PO (16:29)
[2022-03-25] MEDS: chlorproMAZINE HCl 25 MG TABLET 50 MG PO (17:15)
[2022-03-25] MEDS: hydrOXYzine HCL 25 MG TABLET PO (17:15)
[2022-03-25 20:04] VITALS: BP 151/85; PULSE 78; TEMP 36.6; O2SAT 99
[2022-03-25] MEDS: Mineral Oil/Petrolatum,White 106 GM Tube 1 APPL TOPICAL (20:13)
[2022-03-25] MEDS: traZODone HCL 50 MG TABLET PO (22:09)
[2022-03-26] MEDS: traZODone HCL 50 MG TABLET PO ×2 (02:33→20:28)
[2022-03-26] MEDS: Omeprazole 20 MG CAPSULE.DR PO ×2 (06:23→18:11)
[2022-03-26] MEDS: LORazepam 1 MG TABLET PO ×2 (06:53→20:28)
[2022-03-26] MEDS: chlorproMAZINE HCl 25 MG TABLET 50 MG PO (06:53)
[2022-03-26] MEDS: Acetaminophen 325 MG TABLET 650 MG PO (06:53)
[2022-03-26 08:06] LABS: MANUAL DIFF FLAG NO
[2022-03-26 08:15] LABS: Basophils Percent Auto 0.2 % (0-2); Hematocrit 38.3 % (42.0-52.0); Hemoglobin 13.2 g/dl (14.0-18.0); Imm Gran Abs Auto 0.02 X10*3/uL (0.00-0.03); Imm Gran Pct Auto 0.3 % (0.0-0.4); Lymphocytes Absolute Auto 2.1 X10*3/uL (1.2-4.9); Lymphocytes Percent Auto 31.3 % (20-40); Mean Corpuscular HGB Conc 34.5 g/dl (31.0-36.0); Mean Corpuscular Hemoglobin 28.5 pg (27.0-33.0); Mean Corpuscular Volume 82.7 fL (80.0-98.0); Monocytes Absolute Auto 0.5 X10*3/uL (0.1-1.2); Monocytes Percent Auto 7.2 % (2-11); Neutrophils Absolute Auto 4.1 x10*3/uL (2.0-8.3); Platelet Count 224 X10*3/uL (160-400); Red Blood Count 4.63 X10*6/uL (4.60-5.80); Red Cell Distribution Width 13.2 % (11.0-16.0); White Blood Count 6.7 X10*3/uL (4.8-10.8)
[2022-03-26 08:53] LABS: Anion Gap 10 (12-20); Blood Urea Nitrogen 10 mg/dL (9-16); Calcium 9.3 mg/dL (8.4-10.2); Carbon Dioxide 23 mmol/L (22-29); Chloride 109 mmol/L (96-108); Creatinine Clr Calc Pharmacy 154.1; Estimated Glomerular Filt Rate > 60; Glucose Random 103 mg/dL (60-115); Lithium 0.45 mmol/L (0.60-1.20); Potassium 4.2 mmol/L (3.3-5.1); Sodium 138 mmol/L (135-145)
[2022-03-26 10:00] VITALS: BP 113/58; PULSE 65; RESP 18; TEMP 36.7; O2SAT 95
[2022-03-26] MEDS: Paliperidone ER 6 MG TAB.ER.24 PO ×2 (10:44→20:28)
[2022-03-26] MEDS: Lithium Carbonate ER 450 MG TABLET.ER PO (10:45)
[2022-03-26] MEDS: Fluticasone Propionate Nasal 16 GM SPRAY 1 SPRAY NOSTRIL-B (10:46)
[2022-03-26] MEDS: chlorproMAZINE HCl 100 MG TABLET PO ×2 (11:30→20:35)
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
[2022-03-26 20:25] VITALS: BP 141/89; PULSE 100; TEMP 36.7; O2SAT 97
[2022-03-26] MEDS: Lithium Carbonate ER 300 MG TABLET.ER 600 MG PO (20:28)
[2022-03-26] MEDS: Mineral Oil/Petrolatum,White 106 GM Tube 1 APPL TOPICAL (20:29)
[2022-03-26] MEDS: diphenhydrAMINE HCL 25 MG TABLET 50 MG PO (20:35)
[2022-03-27 07:00] VITALS: BMI 28.8
[2022-03-27 08:30] VITALS: BP 120/60; PULSE 70; RESP 18; TEMP 36.6; O2SAT 97
[2022-03-27] MEDS: Lithium Carbonate ER 300 MG TABLET.ER 600 MG PO ×2 (08:45→20:09)
[2022-03-27] MEDS: Omeprazole 20 MG CAPSULE.DR PO ×2 (08:45→16:54)
[2022-03-27] MEDS: Paliperidone ER 6 MG TAB.ER.24 PO ×2 (08:45→20:09)
[2022-03-27] MEDS: Fluticasone Propionate Nasal 16 GM SPRAY 1 SPRAY NOSTRIL-B (08:46)
[2022-03-27] MEDS: chlorproMAZINE HCl 100 MG TABLET PO (10:43)
[2022-03-27] MEDS: Benztropine Mesylate 1 MG TABLET PO (10:43)
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
[2022-03-27] MEDS: Magnesium Hydrox/Alum Hydrox 30 ML ORAL.SUSP PO (14:50)
[2022-03-27] MEDS: Mineral Oil/Petrolatum,White 106 GM Tube 1 APPL TOPICAL (15:56)
[2022-03-27] MEDS: diphenhydrAMINE HCL 25 MG TABLET 50 MG PO (20:09)
[2022-03-27 20:42] VITALS: BP 148/86; PULSE 114; RESP 16; TEMP 36.6; O2SAT 97
[2022-03-27] MEDS: LORazepam 1 MG TABLET PO (21:08)
[2022-03-27] MEDS: traZODone HCL 50 MG TABLET PO (21:08)
[2022-03-28] MEDS: Mineral Oil/Petrolatum,White 106 GM Tube 1 APPL TOPICAL ×3 (00:03→20:58)
[2022-03-28] MEDS: chlorproMAZINE HCl 100 MG TABLET PO ×4 (00:29→23:48)
[2022-03-28] MEDS: traZODone HCL 50 MG TABLET PO ×3 (00:30→22:19)
[2022-03-28] MEDS: Benztropine Mesylate 1 MG TABLET PO ×2 (00:30→23:48)
[2022-03-28] MEDS: hydrOXYzine HCL 25 MG TABLET PO ×2 (00:30→20:17)
[2022-03-28] MEDS: diphenhydrAMINE HCL 25 MG TABLET 50 MG PO ×3 (03:29→17:41)
[2022-03-28] MEDS: LORazepam 1 MG TABLET PO ×2 (04:19→20:17)
[2022-03-28 08:45] VITALS: BP 114/58; PULSE 57; RESP 18; TEMP 36.7; O2SAT 97
[2022-03-28] MEDS: Lithium Carbonate ER 300 MG TABLET.ER 600 MG PO ×2 (09:12→20:17)
[2022-03-28] MEDS: Omeprazole 20 MG CAPSULE.DR PO ×2 (09:13→16:54)
[2022-03-28] MEDS: Paliperidone ER 6 MG TAB.ER.24 PO (09:13)
[2022-03-28] MEDS: Fluticasone Propionate Nasal 16 GM SPRAY 1 SPRAY NOSTRIL-B (09:15)
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
[2022-03-28] MEDS: Magnesium Hydrox/Alum Hydrox 30 ML ORAL.SUSP PO (13:54)
[2022-03-28] MEDS: Paliperidone Palmitate 234 MG/1.5 ML SYRINGE IM (14:16)
[2022-03-28] MEDS: Multivitamin TABLET 1 TAB PO (14:26)
[2022-03-28] MEDS: Acetaminophen 325 MG TABLET 650 MG PO (18:52)
[2022-03-28 20:08] VITALS: BP 134/86; PULSE 110; TEMP 36.8; O2SAT 98
[2022-03-28] MEDS: guaiFENesin DM 100/10/5 ML 5 ML SYRUP PO (21:41)
[2022-03-28] MEDS: guaiFENesin LA 600 MG TAB.ER.12H PO (22:33)
[2022-03-29] MEDS: diphenhydrAMINE HCL 25 MG TABLET 50 MG PO ×3 (01:58→20:23)
[2022-03-29 08:00] VITALS: BP 125/76; PULSE 77; RESP 18; TEMP 36.3; O2SAT 98
[2022-03-29] MEDS: Omeprazole 20 MG CAPSULE.DR PO ×2 (08:35→16:40)
[2022-03-29] MEDS: Multivitamin TABLET 1 TAB PO (08:35)
[2022-03-29] MEDS: Lithium Carbonate ER 300 MG TABLET.ER 600 MG PO ×2 (08:35→20:24)
[2022-03-29] MEDS: Mineral Oil/Petrolatum,White 106 GM Tube 1 APPL TOPICAL ×2 (08:39→20:25)
[2022-03-29] MEDS: Fluticasone Propionate Nasal 16 GM SPRAY 1 SPRAY NOSTRIL-B (08:39)
[2022-03-29] MEDS: guaiFENesin DM 100/10/5 ML 5 ML SYRUP PO ×3 (08:44→23:35)
[2022-03-29] MEDS: guaiFENesin LA 600 MG TAB.ER.12H PO ×2 (08:45→20:24)
[2022-03-29] MEDS: chlorproMAZINE HCl 100 MG TABLET PO ×3 (09:38→20:23)
[2022-03-29] MEDS: LORazepam 1 MG TABLET PO ×3 (10:06→23:39)
[2022-03-29] MEDS: hydrOXYzine HCL 25 MG TABLET PO ×2 (12:40→19:03)
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
[2022-03-29] MEDS: traZODone HCL 50 MG TABLET PO ×2 (20:24→23:39)
[2022-03-29] MEDS: Sodium Chloride 0.65 % Nasal 44 ML SPRBTL 1 SPRAY NOSTRIL-B (20:25)
[2022-03-29 20:35] VITALS: BP 140/87; PULSE 96; RESP 18; TEMP 36.6; O2SAT 98
[2022-03-29] MEDS: Acetaminophen 325 MG TABLET 650 MG PO (23:38)
[2022-03-30 08:10] VITALS: BP 140/90; PULSE 96; RESP 18; TEMP 36.6; O2SAT 97
[2022-03-30] MEDS: Multivitamin TABLET 1 TAB PO (08:19)
[2022-03-30] MEDS: Omeprazole 20 MG CAPSULE.DR PO ×2 (08:19→15:52)
[2022-03-30] MEDS: Fluticasone Propionate Nasal 16 GM SPRAY 1 SPRAY NOSTRIL-B (08:19)
[2022-03-30] MEDS: Lithium Carbonate ER 300 MG TABLET.ER 600 MG PO ×2 (08:19→20:11)
[2022-03-30] MEDS: chlorproMAZINE HCl 100 MG TABLET PO ×3 (08:23→22:18)
[2022-03-30] MEDS: diphenhydrAMINE HCL 25 MG TABLET 50 MG PO ×3 (08:23→22:19)
[2022-03-30] MEDS: Mineral Oil/Petrolatum,White 106 GM Tube 1 APPL TOPICAL ×3 (08:23→23:04)
[2022-03-30] MEDS: LORazepam 1 MG TABLET PO ×3 (08:23→22:18)
[2022-03-30] MEDS: hydrOXYzine HCL 25 MG TABLET PO ×2 (12:22→20:11)
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
[2022-03-30 20:10] VITALS: BP 136/89; PULSE 99; RESP 18; TEMP 36.7; O2SAT 99
[2022-03-30] MEDS: guaiFENesin DM 100/10/5 ML 5 ML SYRUP PO (20:10)
[2022-03-30] MEDS: guaiFENesin LA 600 MG TAB.ER.12H PO (20:11)
[2022-03-30] MEDS: traZODone HCL 50 MG TABLET PO (20:11)
[2022-03-30] MEDS: Sodium Chloride 0.65 % Nasal 44 ML SPRBTL 1 SPRAY NOSTRIL-B (20:11)
[2022-03-31 09:07] VITALS: BP 123/62; PULSE 105; RESP 17; TEMP 36.8; O2SAT 96
[2022-03-31] MEDS: Mineral Oil/Petrolatum,White 106 GM Tube 1 APPL TOPICAL ×2 (09:09→22:55)
[2022-03-31] MEDS: Fluticasone Propionate Nasal 16 GM SPRAY 1 SPRAY NOSTRIL-B (09:09)
[2022-03-31] MEDS: Omeprazole 20 MG CAPSULE.DR PO ×2 (09:10→16:04)
[2022-03-31] MEDS: Multivitamin TABLET 1 TAB PO (09:11)
[2022-03-31] MEDS: Lithium Carbonate ER 300 MG TABLET.ER 600 MG PO ×2 (09:11→21:15)
[2022-03-31] MEDS: Acetaminophen 325 MG TABLET 650 MG PO (10:07)
[2022-03-31] MEDS: chlorproMAZINE HCl 100 MG TABLET PO ×2 (11:14→21:15)
[2022-03-31] MEDS: diphenhydrAMINE HCL 25 MG TABLET 50 MG PO (11:14)
[2022-03-31] MEDS: guaiFENesin LA 600 MG TAB.ER.12H PO (12:24)
[2022-03-31] MEDS: guaiFENesin DM 100/10/5 ML 5 ML SYRUP PO (12:24)
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
[2022-03-31] MEDS: hydrOXYzine HCL 25 MG TABLET PO (21:15)
[2022-03-31] MEDS: traZODone HCL 50 MG TABLET PO (21:15)
[2022-04-01] MEDS: Lithium Carbonate ER 300 MG TABLET.ER 600 MG PO (08:37)
[2022-04-01] MEDS: Multivitamin TABLET 1 TAB PO (08:37)
[2022-04-01] MEDS: Omeprazole 20 MG CAPSULE.DR PO ×2 (08:37→16:49)
[2022-04-01] MEDS: Fluticasone Propionate Nasal 16 GM SPRAY 1 SPRAY NOSTRIL-B (08:38)
[2022-04-01 09:49] VITALS: BP 132/80; PULSE 115; RESP 18; TEMP 36.5; O2SAT 97
[2022-04-01] MEDS: Mineral Oil/Petrolatum,White 106 GM Tube 1 APPL TOPICAL ×2 (10:22→20:41)
[2022-04-01 10:36] LABS: Lithium 0.68 mmol/L (0.60-1.20)
[2022-04-01 10:46] LABS: Anion Gap 15 (12-20); Blood Urea Nitrogen 8 mg/dL (9-16); Calcium 9.6 mg/dL (8.4-10.2); Carbon Dioxide 25 mmol/L (22-29); Chloride 102 mmol/L (96-108); Creatinine Clr Calc Pharmacy 146.8; Estimated Glomerular Filt Rate > 60; Glucose Random 97 mg/dL (60-115); Potassium 4.3 mmol/L (3.3-5.1); Sodium 138 mmol/L (135-145)
[2022-04-01] MEDS: Paliperidone Palmitate 156 MG/ML SYRINGE IM (12:03)
[2022-04-01] MEDS: diphenhydrAMINE HCL 25 MG TABLET 50 MG PO ×2 (13:00→21:46)
[2022-04-01] MEDS: chlorproMAZINE HCl 100 MG TABLET PO (13:00)
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
[2022-04-01] MEDS: Lithium Carbonate 300 MG TABLET 900 MG PO (20:39)
[2022-04-01 20:47] VITALS: BP 135/71; PULSE 109; RESP 18; TEMP 36.7; O2SAT 98
[2022-04-01] MEDS: traZODone HCL 50 MG TABLET PO (21:44)
[2022-04-02] MEDS: chlorproMAZINE HCl 100 MG TABLET PO ×2 (04:53→21:09)
[2022-04-02] MEDS: diphenhydrAMINE HCL 25 MG TABLET 50 MG PO ×2 (04:53→21:08)
[2022-04-02] MEDS: LORazepam 1 MG TABLET PO ×2 (04:53→21:09)
[2022-04-02] MEDS: Omeprazole 20 MG CAPSULE.DR PO ×2 (08:30→17:22)
[2022-04-02] MEDS: Lithium Carbonate ER 300 MG TABLET.ER 600 MG PO (08:30)
[2022-04-02] MEDS: Multivitamin TABLET 1 TAB PO (08:31)
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
[2022-04-02] MEDS: traZODone HCL 50 MG TABLET PO (21:09)
[2022-04-02] MEDS: Lithium Carbonate 300 MG TABLET 900 MG PO (21:09)
[2022-04-02 21:10] VITALS: BP 135/85; PULSE 100; RESP 16; TEMP 36.3; O2SAT 98
[2022-04-02] MEDS: Sodium Chloride 0.65 % Nasal 44 ML SPRBTL 1 SPRAY NOSTRIL-B (21:13)
[2022-04-02] MEDS: Fluticasone Propionate Nasal 16 GM SPRAY 1 SPRAY NOSTRIL-B (21:15)
--- NOTE | 2022-04-02 21:18 | PC.NURSE ---
Patient did not use Flonase in AM, Dr. Mitchell gave permission for him to use tonight.
[2022-04-02] MEDS: Mineral Oil/Petrolatum,White 106 GM Tube 1 APPL TOPICAL (21:37)
[2022-04-03] MEDS: Multivitamin TABLET 1 TAB PO (08:09)
[2022-04-03] MEDS: Lithium Carbonate ER 300 MG TABLET.ER 600 MG PO (08:09)
[2022-04-03] MEDS: Omeprazole 20 MG CAPSULE.DR PO ×2 (08:09→18:36)
[2022-04-03] MEDS: Mineral Oil/Petrolatum,White 106 GM Tube 1 APPL TOPICAL ×2 (08:11→21:11)
[2022-04-03] MEDS: Fluticasone Propionate Nasal 16 GM SPRAY 1 SPRAY NOSTRIL-B (08:14)
[2022-04-03 08:45] VITALS: BP 139/81; PULSE 95; RESP 18; TEMP 36.6; O2SAT 98
[2022-04-03] MEDS: LORazepam 1 MG TABLET PO ×2 (10:19→21:11)
[2022-04-03] MEDS: chlorproMAZINE HCl 100 MG TABLET PO ×2 (10:19→21:11)
[2022-04-03] MEDS: diphenhydrAMINE HCL 25 MG TABLET 50 MG PO ×2 (10:19→21:10)
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
[2022-04-03 13:06] LABS: Neut%MD 72.2 %; Neutrophils Absolute Auto 5.7 x10*3/uL (2.0-8.3); WBCANC 7.8 X10*3/uL
[2022-04-03] MEDS: cloZAPine 25 MG TABLET 12.5 MG PO ×2 (13:28→21:10)
[2022-04-03 21:08] VITALS: BP 139/76; PULSE 88; RESP 14; TEMP 36.5; O2SAT 96
[2022-04-03] MEDS: Lithium Carbonate 300 MG TABLET 900 MG PO (21:11)
[2022-04-03] MEDS: Sodium Chloride 0.65 % Nasal 44 ML SPRBTL 1 SPRAY NOSTRIL-B (21:12)
[2022-04-04 10:00] VITALS: BP 147/83; PULSE 117; RESP 17; TEMP 36.5; O2SAT 97
[2022-04-04] MEDS: cloZAPine 25 MG TABLET 12.5 MG PO (10:08)
[2022-04-04] MEDS: Lithium Carbonate ER 300 MG TABLET.ER 600 MG PO (10:08)
[2022-04-04] MEDS: Multivitamin TABLET 1 TAB PO (10:08)
[2022-04-04] MEDS: Omeprazole 20 MG CAPSULE.DR PO ×2 (10:09→16:00)
[2022-04-04] MEDS: Fluticasone Propionate Nasal 16 GM SPRAY 1 SPRAY NOSTRIL-B (10:09)
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
[2022-04-04] MEDS: chlorproMAZINE HCl 100 MG TABLET PO (16:00)
[2022-04-04] MEDS: diphenhydrAMINE HCL 25 MG TABLET 50 MG PO (16:00)
[2022-04-04] MEDS: Sodium Chloride 0.65 % Nasal 44 ML SPRBTL 1 SPRAY NOSTRIL-B (18:21)
[2022-04-04] MEDS: cloZAPine 25 MG TABLET PO (21:13)
[2022-04-04] MEDS: Lithium Carbonate 300 MG TABLET 900 MG PO (21:13)
[2022-04-05] MEDS: Omeprazole 20 MG CAPSULE.DR PO ×2 (07:29→16:09)
[2022-04-05] MEDS: Lithium Carbonate ER 300 MG TABLET.ER 600 MG PO (08:49)
[2022-04-05] MEDS: Multivitamin TABLET 1 TAB PO (08:49)
[2022-04-05] MEDS: cloZAPine 25 MG TABLET PO ×2 (08:49→20:25)
[2022-04-05] MEDS: Fluticasone Propionate Nasal 16 GM SPRAY 1 SPRAY NOSTRIL-B ×2 (09:03→20:25)
[2022-04-05] MEDS: Mineral Oil/Petrolatum,White 106 GM Tube 1 APPL TOPICAL (09:03)
[2022-04-05 10:08] VITALS: BP 114/84; PULSE 99; RESP 16; TEMP 36.4; O2SAT 98
[2022-04-05] MEDS: chlorproMAZINE HCl 100 MG TABLET PO ×2 (12:58→20:25)
[2022-04-05] MEDS: LORazepam 1 MG TABLET PO ×2 (12:58→20:25)
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
[2022-04-05 20:00] VITALS: BP 156/99; PULSE 110; RESP 20; TEMP 36.2; O2SAT 98
[2022-04-05] MEDS: Lithium Carbonate 300 MG TABLET 900 MG PO (20:25)
[2022-04-05] MEDS: traZODone HCL 50 MG TABLET PO (20:25)
[2022-04-05] MEDS: diphenhydrAMINE HCL 25 MG TABLET 50 MG PO (20:25)
[2022-04-06] MEDS: Mineral Oil/Petrolatum,White 106 GM Tube 1 APPL TOPICAL (09:16)
[2022-04-06] MEDS: Fluticasone Propionate Nasal 16 GM SPRAY 1 SPRAY NOSTRIL-B (09:16)
[2022-04-06] MEDS: Lithium Carbonate ER 300 MG TABLET.ER 600 MG PO (09:18)
[2022-04-06] MEDS: cloZAPine 25 MG TABLET PO ×2 (09:18→20:06)
[2022-04-06] MEDS: Omeprazole 20 MG CAPSULE.DR PO ×2 (09:18→16:23)
[2022-04-06] MEDS: Multivitamin TABLET 1 TAB PO (09:18)
[2022-04-06 09:57] VITALS: BP 120/67; PULSE 76; RESP 16; TEMP 36.8; O2SAT 98
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
[2022-04-06] MEDS: LORazepam 1 MG TABLET PO (16:57)
[2022-04-06] MEDS: chlorproMAZINE HCl 100 MG TABLET PO (16:57)
[2022-04-06 19:50] VITALS: BP 136/72; PULSE 127; RESP 18; TEMP 36.6; O2SAT 6
[2022-04-06] MEDS: Lithium Carbonate 300 MG TABLET 900 MG PO (20:05)
--- NOTE | 2022-04-07 | ECG_ITS ---
Test Reason : cp Blood Pressure : / mmHG Vent. Rate : 099 BPM Atrial Rate : 099 BPM P-R Int : 168 ms QRS Dur : 082 ms QT Int : 360 ms P-R-T Axes : 044 076 047 degrees QTc Int : 462 ms Normal sinus rhythm Normal ECG When compared with ECG of 24-MAR-2022 19:20, Nonspecific T wave abnormality no longer evident in Lateral leads Referred By: Bebo Noriega Electronically Signed By:NURY HAYNES
[2022-04-07] MEDS: diphenhydrAMINE HCL 25 MG TABLET 50 MG PO ×3 (03:12→22:53)
[2022-04-07] MEDS: LORazepam 1 MG TABLET PO ×3 (03:12→22:53)
[2022-04-07] MEDS: chlorproMAZINE HCl 100 MG TABLET PO ×3 (03:12→22:53)
[2022-04-07] MEDS: Omeprazole 20 MG CAPSULE.DR PO ×2 (08:26→17:55)
[2022-04-07] MEDS: Fluticasone Propionate Nasal 16 GM SPRAY 1 SPRAY NOSTRIL-B (08:26)
[2022-04-07] MEDS: Mineral Oil/Petrolatum,White 106 GM Tube 1 APPL TOPICAL (08:26)
[2022-04-07] MEDS: Lithium Carbonate ER 300 MG TABLET.ER 600 MG PO (08:27)
[2022-04-07] MEDS: cloZAPine 25 MG TABLET PO (08:27)
[2022-04-07] MEDS: Multivitamin TABLET 1 TAB PO (08:27)
[2022-04-07 08:35] VITALS: BP 147/107; PULSE 129; RESP 18; TEMP 36.2; O2SAT 98
[2022-04-07] MEDS: hydrOXYzine HCL 25 MG TABLET PO ×2 (13:17→20:15)
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
[2022-04-07 19:58] VITALS: BP 147/107; PULSE 131; RESP 17; TEMP 36.6; O2SAT 97
[2022-04-07] MEDS: cloZAPine 25 MG TABLET 50 MG PO (20:14)
[2022-04-07] MEDS: traZODone HCL 50 MG TABLET PO (20:15)
[2022-04-07] MEDS: Lithium Carbonate 300 MG TABLET 900 MG PO (20:15)
[2022-04-07] MEDS: Sodium Chloride 0.65 % Nasal 44 ML SPRBTL 1 SPRAY NOSTRIL-B (20:20)
[2022-04-08] MEDS: hydrOXYzine HCL 25 MG TABLET PO ×2 (00:10→12:23)
[2022-04-08] MEDS: traZODone HCL 50 MG TABLET PO (00:11)
[2022-04-08 07:52] VITALS: BP 130/98; PULSE 98; RESP 18; TEMP 36.6; O2SAT 97
[2022-04-08] MEDS: Lithium Carbonate ER 300 MG TABLET.ER 600 MG PO (08:47)
[2022-04-08] MEDS: Fluticasone Propionate Nasal 16 GM SPRAY 1 SPRAY NOSTRIL-B (08:47)
[2022-04-08] MEDS: Omeprazole 20 MG CAPSULE.DR PO ×2 (08:47→18:07)
[2022-04-08] MEDS: cloZAPine 25 MG TABLET PO (08:47)
[2022-04-08] MEDS: Mineral Oil/Petrolatum,White 106 GM Tube 1 APPL TOPICAL ×2 (08:47→21:53)
[2022-04-08] MEDS: Multivitamin TABLET 1 TAB PO (08:47)
[2022-04-08] MEDS: LORazepam 1 MG TABLET PO ×2 (10:50→18:37)
[2022-04-08] MEDS: chlorproMAZINE HCl 100 MG TABLET PO ×2 (10:50→18:37)
[2022-04-08] MEDS: diphenhydrAMINE HCL 25 MG TABLET 50 MG PO ×2 (10:50→21:28)
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
[2022-04-08 21:24] VITALS: BP 122/71; PULSE 90; TEMP 36.6; O2SAT 97
[2022-04-08] MEDS: Lithium Carbonate 300 MG TABLET 900 MG PO (21:27)
[2022-04-08] MEDS: cloZAPine 25 MG TABLET 75 MG PO (21:28)
[2022-04-09] MEDS: Omeprazole 20 MG CAPSULE.DR PO ×2 (06:56→15:52)
[2022-04-09] MEDS: Multivitamin TABLET 1 TAB PO (09:00)
[2022-04-09] MEDS: cloZAPine 25 MG TABLET PO (09:00)
[2022-04-09] MEDS: Fluticasone Propionate Nasal 16 GM SPRAY 1 SPRAY NOSTRIL-B (09:00)
[2022-04-09] MEDS: Lithium Carbonate ER 300 MG TABLET.ER 600 MG PO (09:00)
[2022-04-09] MEDS: Mineral Oil/Petrolatum,White 106 GM Tube 1 APPL TOPICAL ×2 (09:10→21:57)
[2022-04-09 09:19] VITALS: BP 139/82; PULSE 98; RESP 16; TEMP 36.7; O2SAT 98
[2022-04-09 09:29] LABS: Anion Gap 14 (12-20); Blood Urea Nitrogen 10 mg/dL (9-16); Calcium 9.2 mg/dL (8.4-10.2); Carbon Dioxide 23 mmol/L (22-29); Chloride 105 mmol/L (96-108); Creatinine Clr Calc Pharmacy 168.7; Estimated Glomerular Filt Rate > 60; Glucose Random 93 mg/dL (60-115); Potassium 4.2 mmol/L (3.3-5.1); Sodium 138 mmol/L (135-145)
[2022-04-09 10:13] LABS: Lithium 0.94 mmol/L (0.60-1.20)
[2022-04-09] MEDS: chlorproMAZINE HCl 100 MG TABLET PO ×2 (10:45→20:26)
[2022-04-09] MEDS: LORazepam 1 MG TABLET PO ×2 (10:45→20:40)
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
[2022-04-09] MEDS: diphenhydrAMINE HCL 25 MG TABLET 50 MG PO (20:26)
[2022-04-09] MEDS: cloZAPine 25 MG TABLET 75 MG PO (20:39)
[2022-04-09] MEDS: traZODone HCL 50 MG TABLET PO ×2 (20:40→23:30)
[2022-04-09] MEDS: Lithium Carbonate 300 MG TABLET 900 MG PO (20:40)
[2022-04-09 20:42] VITALS: BP 140/82; PULSE 102; TEMP 36.2; O2SAT 99
[2022-04-09] MEDS: hydrOXYzine HCL 25 MG TABLET PO (23:30)
[2022-04-10] MEDS: Omeprazole 20 MG CAPSULE.DR PO ×2 (05:42→15:55)
[2022-04-10 07:00] VITALS: BMI 29.5
[2022-04-10] MEDS: Mineral Oil/Petrolatum,White 106 GM Tube 1 APPL TOPICAL ×2 (08:42→21:03)
[2022-04-10] MEDS: Fluticasone Propionate Nasal 16 GM SPRAY 1 SPRAY NOSTRIL-B (08:44)
[2022-04-10] MEDS: Multivitamin TABLET 1 TAB PO (08:45)
[2022-04-10] MEDS: Lithium Carbonate ER 300 MG TABLET.ER 600 MG PO (08:45)
[2022-04-10] MEDS: cloZAPine 25 MG TABLET 50 MG PO (08:45)
[2022-04-10 08:49] LABS: Neut%MD 69.6 %; Neutrophils Absolute Auto 7.1 x10*3/uL (2.0-8.3); WBCANC 10.2 X10*3/uL
[2022-04-10 08:52] VITALS: BP 130/72; PULSE 70; RESP 16; TEMP 36.6; O2SAT 98
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
[2022-04-10] MEDS: diphenhydrAMINE HCL 25 MG TABLET 50 MG PO (16:28)
[2022-04-10] MEDS: LORazepam 1 MG TABLET PO (16:28)
[2022-04-10] MEDS: chlorproMAZINE HCl 100 MG TABLET PO (16:28)
[2022-04-10 18:00] VITALS: BP 153/97; PULSE 122; RESP 16; TEMP 36.6; O2SAT 93
[2022-04-10] MEDS: traZODone HCL 50 MG TABLET PO ×2 (19:53→21:00)
[2022-04-10] MEDS: cloZAPine 25 MG TABLET 75 MG PO (19:53)
[2022-04-10] MEDS: Lithium Carbonate 300 MG TABLET 900 MG PO (19:53)
[2022-04-10] MEDS: hydrOXYzine HCL 25 MG TABLET PO (21:00)
[2022-04-11 07:50] VITALS: BP 140/92; PULSE 127; RESP 15; TEMP 36.8; O2SAT 98
[2022-04-11] MEDS: Omeprazole 20 MG CAPSULE.DR PO ×2 (09:01→15:56)
[2022-04-11] MEDS: cloZAPine 25 MG TABLET 50 MG PO (09:01)
[2022-04-11] MEDS: Lithium Carbonate ER 300 MG TABLET.ER 600 MG PO (09:01)
[2022-04-11] MEDS: Multivitamin TABLET 1 TAB PO (09:02)
[2022-04-11] MEDS: Fluticasone Propionate Nasal 16 GM SPRAY 1 SPRAY NOSTRIL-B (10:26)
[2022-04-11] MEDS: Bacitracin Oint 14 GM TUBE 1 APPL TOPICAL (10:27)
[2022-04-11] MEDS: Mineral Oil/Petrolatum,White 106 GM Tube 1 APPL TOPICAL ×2 (10:28→22:19)
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
[2022-04-11] MEDS: chlorproMAZINE HCl 100 MG TABLET PO (18:11)
[2022-04-11] MEDS: diphenhydrAMINE HCL 25 MG TABLET 50 MG PO (18:11)
[2022-04-11] MEDS: Lithium Carbonate 300 MG TABLET 900 MG PO (20:10)
[2022-04-11] MEDS: traZODone HCL 50 MG TABLET PO ×2 (20:10→23:34)
[2022-04-11] MEDS: cloZAPine 25 MG TABLET 75 MG PO (20:10)
[2022-04-11] MEDS: hydrOXYzine HCL 25 MG TABLET PO (20:10)
[2022-04-11 20:13] VITALS: BP 176/89; PULSE 124; TEMP 36.6; O2SAT 98
[2022-04-12] MEDS: Omeprazole 20 MG CAPSULE.DR PO ×2 (06:50→18:04)
[2022-04-12 08:00] VITALS: BP 139/92; PULSE 112; RESP 18; TEMP 36.7; O2SAT 97
[2022-04-12] MEDS: Lithium Carbonate ER 300 MG TABLET.ER 600 MG PO (08:43)
[2022-04-12] MEDS: cloZAPine 25 MG TABLET 75 MG PO ×2 (08:43→20:05)
[2022-04-12] MEDS: Multivitamin TABLET 1 TAB PO (08:44)
[2022-04-12] MEDS: Mineral Oil/Petrolatum,White 106 GM Tube 1 APPL TOPICAL ×2 (08:44→20:05)
[2022-04-12] MEDS: Fluticasone Propionate Nasal 16 GM SPRAY 1 SPRAY NOSTRIL-B (08:44)
[2022-04-12] MEDS: diphenhydrAMINE HCL 25 MG TABLET 50 MG PO (11:37)
[2022-04-12] MEDS: chlorproMAZINE HCl 100 MG TABLET PO (11:37)
[2022-04-12] MEDS: LORazepam 1 MG TABLET PO (11:37)
[2022-04-12] MEDS: hydrOXYzine HCL 25 MG TABLET PO (14:06)
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
[2022-04-12 20:05] VITALS: BP 131/97
[2022-04-12] MEDS: Lithium Carbonate 300 MG TABLET 900 MG PO (20:05)
[2022-04-12 20:08] VITALS: PULSE 120; TEMP 36.7; O2SAT 120
[2022-04-13 08:44] VITALS: BP 133/97; PULSE 123; RESP 18; TEMP 36.4; O2SAT 97
[2022-04-13] MEDS: cloZAPine 25 MG TABLET 75 MG PO ×2 (08:45→20:01)
[2022-04-13] MEDS: Lithium Carbonate ER 300 MG TABLET.ER 600 MG PO (08:45)
[2022-04-13] MEDS: Omeprazole 20 MG CAPSULE.DR PO ×2 (08:45→16:34)
[2022-04-13] MEDS: Multivitamin TABLET 1 TAB PO (08:45)
[2022-04-13] MEDS: Fluticasone Propionate Nasal 16 GM SPRAY 1 SPRAY NOSTRIL-B (08:46)
[2022-04-13] MEDS: Mineral Oil/Petrolatum,White 106 GM Tube 1 APPL TOPICAL ×2 (08:46→20:03)
[2022-04-13] MEDS: diphenhydrAMINE HCL 25 MG TABLET 50 MG PO ×2 (10:57→22:00)
[2022-04-13] MEDS: Magnesium Hydrox/Alum Hydrox 30 ML ORAL.SUSP PO (11:01)
[2022-04-13] MEDS: chlorproMAZINE HCl 100 MG TABLET PO ×2 (11:01→22:00)
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
[2022-04-13] MEDS: Acetaminophen 325 MG TABLET 650 MG PO ×2 (12:35→22:00)
[2022-04-13] MEDS: Propranolol HCL 20 MG TABLET PO ×2 (12:44→20:02)
[2022-04-13] MEDS: hydrOXYzine HCL 25 MG TABLET PO (14:38)
[2022-04-13 19:57] VITALS: BP 135/99; PULSE 110; RESP 18; TEMP 36.2; O2SAT 97
[2022-04-13] MEDS: Lithium Carbonate 300 MG TABLET 900 MG PO (20:01)
[2022-04-13] MEDS: LORazepam 1 MG TABLET PO (22:00)
[2022-04-14] MEDS: Multivitamin TABLET 1 TAB PO (08:50)
[2022-04-14] MEDS: cloZAPine 25 MG TABLET 75 MG PO ×2 (08:50→20:31)
[2022-04-14] MEDS: Lithium Carbonate ER 300 MG TABLET.ER 600 MG PO (08:50)
[2022-04-14] MEDS: Fluticasone Propionate Nasal 16 GM SPRAY 1 SPRAY NOSTRIL-B (08:50)
[2022-04-14] MEDS: Omeprazole 20 MG CAPSULE.DR PO ×2 (08:50→16:29)
[2022-04-14] MEDS: Propranolol HCL 20 MG TABLET PO ×2 (08:50→20:31)
[2022-04-14] MEDS: Mineral Oil/Petrolatum,White 106 GM Tube 1 APPL TOPICAL ×2 (08:57→20:32)
[2022-04-14 09:26] VITALS: BP 106/62; PULSE 86; RESP 14; TEMP 36.6; O2SAT 97
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
[2022-04-14] MEDS: diphenhydrAMINE HCL 25 MG TABLET 50 MG PO ×2 (13:41→20:32)
[2022-04-14] MEDS: chlorproMAZINE HCl 100 MG TABLET PO ×2 (13:41→20:31)
[2022-04-14] MEDS: LORazepam 1 MG TABLET PO ×2 (13:41→20:32)
[2022-04-14] MEDS: hydrOXYzine HCL 25 MG TABLET PO (16:44)
[2022-04-14] MEDS: Magnesium Hydrox/Alum Hydrox 30 ML ORAL.SUSP PO (17:19)
[2022-04-14 20:00] VITALS: BP 147/90; PULSE 110; RESP 18; TEMP 36.9; O2SAT 97
[2022-04-14] MEDS: Lithium Carbonate 300 MG TABLET 900 MG PO (20:32)
[2022-04-14] MEDS: Sodium Chloride 0.65 % Nasal 44 ML SPRBTL 1 SPRAY NOSTRIL-B (20:32)
[2022-04-15 08:15] VITALS: BP 135/75; PULSE 93; RESP 18; TEMP 36.4; O2SAT 97
[2022-04-15] MEDS: Omeprazole 20 MG CAPSULE.DR PO ×2 (08:44→17:13)
[2022-04-15] MEDS: Lithium Carbonate ER 300 MG TABLET.ER 600 MG PO (08:44)
[2022-04-15] MEDS: cloZAPine 25 MG TABLET 75 MG PO (08:44)
[2022-04-15] MEDS: Multivitamin TABLET 1 TAB PO (08:44)
[2022-04-15] MEDS: Propranolol HCL 20 MG TABLET PO ×2 (08:44→20:48)
[2022-04-15] MEDS: Fluticasone Propionate Nasal 16 GM SPRAY 1 SPRAY NOSTRIL-B (08:44)
[2022-04-15] MEDS: Mineral Oil/Petrolatum,White 106 GM Tube 1 APPL TOPICAL (08:47)
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
[2022-04-15 20:45] VITALS: BP 130/91; PULSE 96; RESP 18; TEMP 36.6; O2SAT 100
[2022-04-15] MEDS: Lithium Carbonate 300 MG TABLET 900 MG PO (20:49)
[2022-04-15] MEDS: cloZAPine 100 MG TABLET PO (20:49)
[2022-04-16] MEDS: LORazepam 1 MG TABLET PO (03:03)
[2022-04-16] MEDS: chlorproMAZINE HCl 100 MG TABLET PO (03:03)
[2022-04-16] MEDS: traZODone HCL 50 MG TABLET PO (03:03)
[2022-04-16 06:00] VITALS: BP 124/84; PULSE 99; RESP 14; TEMP 36.8; O2SAT 96
[2022-04-16] MEDS: Lithium Carbonate ER 300 MG TABLET.ER 600 MG PO (08:34)
[2022-04-16] MEDS: cloZAPine 100 MG TABLET PO ×2 (08:34→21:02)
[2022-04-16] MEDS: Omeprazole 20 MG CAPSULE.DR PO ×2 (08:34→16:06)
[2022-04-16] MEDS: Fluticasone Propionate Nasal 16 GM SPRAY 1 SPRAY NOSTRIL-B (08:34)
[2022-04-16] MEDS: Propranolol HCL 20 MG TABLET PO ×2 (09:07→19:52)
[2022-04-16] MEDS: Multivitamin TABLET 1 TAB PO (09:07)
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
[2022-04-16 10:17] LABS: Lithium 0.72 mmol/L (0.60-1.20)
[2022-04-16 19:53] VITALS: BP 171/105; PULSE 126; TEMP 35.8; O2SAT 97
[2022-04-16 19:54] VITALS: BP 137/96; PULSE 120; O2SAT 98
[2022-04-16 21:00] VITALS: BP 148/86; BP 149/103; PULSE 109; PULSE 111
[2022-04-16] MEDS: Lithium Carbonate 300 MG TABLET 900 MG PO (21:02)
[2022-04-17] MEDS: Fluticasone Propionate Nasal 16 GM SPRAY 1 SPRAY NOSTRIL-B (08:46)
[2022-04-17] MEDS: Multivitamin TABLET 1 TAB PO (08:47)
[2022-04-17] MEDS: Propranolol HCL 20 MG TABLET PO ×2 (08:47→20:31)
[2022-04-17] MEDS: Lithium Carbonate ER 300 MG TABLET.ER 600 MG PO (08:47)
[2022-04-17] MEDS: Omeprazole 20 MG CAPSULE.DR PO ×2 (08:47→16:53)
[2022-04-17] MEDS: cloZAPine 100 MG TABLET PO ×2 (08:47→20:31)
[2022-04-17] MEDS: chlorproMAZINE HCl 100 MG TABLET PO ×2 (09:12→14:55)
[2022-04-17] MEDS: LORazepam 1 MG TABLET PO ×2 (09:12→14:55)
[2022-04-17 09:40] LABS: Neut%MD 69.6 %; Neutrophils Absolute Auto 7.9 x10*3/uL (2.0-8.3); WBCANC 11.4 X10*3/uL
[2022-04-17 10:32] VITALS: BMI 30.4
[2022-04-17 10:34] VITALS: BP 142/86; PULSE 92; RESP 16; TEMP 36.4; O2SAT 98
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
[2022-04-17 18:00] VITALS: BP 150/76; PULSE 110; TEMP 36.6; O2SAT 95
[2022-04-17] MEDS: Lithium Carbonate 300 MG TABLET 900 MG PO (20:31)
--- NOTE | 2022-04-18 | ECG_ITS ---
Test Reason : palpitations Blood Pressure : / mmHG Vent. Rate : 107 BPM Atrial Rate : 107 BPM P-R Int : 162 ms QRS Dur : 084 ms QT Int : 336 ms P-R-T Axes : 041 077 030 degrees QTc Int : 448 ms Sinus tachycardia Otherwise normal ECG When compared with ECG of 07-APR-2022 19:27, Heart rate has increased Referred By: Kiley Melvin Electronically Signed By:ERIC LOMBARDO
[2022-04-18 09:30] VITALS: BP 168/96; PULSE 135; RESP 17; TEMP 36.1; O2SAT 96
[2022-04-18] MEDS: Fluticasone Propionate Nasal 16 GM SPRAY 1 SPRAY NOSTRIL-B (09:30)
[2022-04-18] MEDS: Mineral Oil/Petrolatum,White 106 GM Tube 1 APPL TOPICAL ×2 (09:30→20:03)
[2022-04-18] MEDS: Lithium Carbonate ER 300 MG TABLET.ER 600 MG PO (09:34)
[2022-04-18] MEDS: Omeprazole 20 MG CAPSULE.DR PO ×2 (09:34→17:49)
[2022-04-18] MEDS: Multivitamin TABLET 1 TAB PO (09:34)
[2022-04-18] MEDS: cloZAPine 100 MG TABLET PO ×2 (09:34→20:02)
[2022-04-18] MEDS: Propranolol HCL 20 MG TABLET PO (09:35)
[2022-04-18 10:09] VITALS: BP 140/84; BP 141/80; BP 143/85; PULSE 113; PULSE 117; PULSE 124
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
[2022-04-18] MEDS: Sodium Chloride 0.65 % Nasal 44 ML SPRBTL 1 SPRAY NOSTRIL-B (13:23)
[2022-04-18] MEDS: hydrOXYzine HCL 25 MG TABLET PO ×2 (13:28→20:41)
[2022-04-18] MEDS: chlorproMAZINE HCl 100 MG TABLET PO ×2 (13:28→20:41)
[2022-04-18] MEDS: LORazepam 1 MG TABLET PO ×2 (14:24→20:41)
[2022-04-18] MEDS: Magnesium Hydrox/Alum Hydrox 30 ML ORAL.SUSP PO (19:26)
[2022-04-18 20:00] VITALS: BP 131/87; PULSE 120; RESP 16; TEMP 36.2; O2SAT 96
[2022-04-18] MEDS: Lithium Carbonate 300 MG TABLET 900 MG PO (20:02)
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
[2022-04-19 10:00] VITALS: BP 142/90; PULSE 136; RESP 18; TEMP 36.2; O2SAT 97
[2022-04-19] MEDS: Lithium Carbonate ER 300 MG TABLET.ER 600 MG PO (10:08)
[2022-04-19] MEDS: cloZAPine 100 MG TABLET PO ×2 (10:09→20:16)
[2022-04-19] MEDS: Omeprazole 20 MG CAPSULE.DR PO ×2 (10:09→17:38)
[2022-04-19] MEDS: atenoloL 50 MG TABLET PO (10:09)
[2022-04-19] MEDS: Multivitamin TABLET 1 TAB PO (10:10)
[2022-04-19 13:05] VITALS: PULSE 100; RESP 16
[2022-04-19] MEDS: Sodium Chloride 0.65 % Nasal 44 ML SPRBTL 1 SPRAY NOSTRIL-B ×3 (14:12→23:15)
[2022-04-19] MEDS: hydrOXYzine HCL 25 MG TABLET PO ×2 (15:17→23:53)
[2022-04-19] MEDS: LORazepam 1 MG TABLET PO ×2 (15:17→23:53)
[2022-04-19] MEDS: chlorproMAZINE HCl 100 MG TABLET PO ×2 (15:17→23:53)
[2022-04-19] MEDS: Magnesium Hydrox/Alum Hydrox 30 ML ORAL.SUSP PO (18:51)
[2022-04-19 20:02] VITALS: BP 141/77; PULSE 107; RESP 18; TEMP 36.3; O2SAT 98
[2022-04-19] MEDS: guaiFENesin DM 100/10/5 ML 5 ML SYRUP PO (20:16)
[2022-04-19] MEDS: Acetaminophen 325 MG TABLET 650 MG PO (20:16)
[2022-04-19] MEDS: Mineral Oil/Petrolatum,White 106 GM Tube 1 APPL TOPICAL (20:16)
[2022-04-19] MEDS: Lithium Carbonate 300 MG TABLET 900 MG PO (20:16)
[2022-04-19] MEDS: guaiFENesin DM 600/30 1 TAB TAB.ER.12H PO (20:16)
[2022-04-19] MEDS: Fluticasone Propionate Nasal 16 GM SPRAY 1 SPRAY NOSTRIL-B (20:19)
[2022-04-19 21:19] LABS: Influenza A PCR NEGATIVE (Negative); Influenza B PCR NEGATIVE (Negative); Resp Syncy Virus RNA Qual PCR NEGATIVE (Negative); SARS COV2 PCR INHOUSE NEGATIVE (Negative)
[2022-04-20 09:00] VITALS: BP 138/100; PULSE 113; RESP 18; TEMP 36.6; O2SAT 97
[2022-04-20] MEDS: Omeprazole 20 MG CAPSULE.DR PO ×2 (09:01→17:23)
[2022-04-20] MEDS: Multivitamin TABLET 1 TAB PO (09:01)
[2022-04-20] MEDS: cloZAPine 100 MG TABLET PO ×2 (09:01→19:48)
[2022-04-20] MEDS: Lithium Carbonate ER 300 MG TABLET.ER 600 MG PO (09:02)
[2022-04-20] MEDS: atenoloL 100 MG TABLET PO (09:02)
[2022-04-20] MEDS: Fluticasone Propionate Nasal 16 GM SPRAY 1 SPRAY NOSTRIL-B (10:19)
[2022-04-20] MEDS: Magnesium Hydrox/Alum Hydrox 30 ML ORAL.SUSP PO (11:12)
[2022-04-20 11:34] VITALS: BP 122/79; PULSE 93; RESP 18; O2SAT 97
[2022-04-20] MEDS: Sodium Chloride 0.65 % Nasal 44 ML SPRBTL 1 SPRAY NOSTRIL-B ×2 (12:04→19:51)
[2022-04-20] MEDS: hydrOXYzine HCL 25 MG TABLET PO ×2 (12:28→19:48)
[2022-04-20] MEDS: LORazepam 1 MG TABLET PO ×2 (12:28→19:48)
[2022-04-20] MEDS: chlorproMAZINE HCl 100 MG TABLET PO ×2 (12:28→19:48)
[2022-04-20] MEDS: guaiFENesin DM 100/10/5 ML 5 ML SYRUP PO ×2 (13:13→19:50)
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
[2022-04-20] MEDS: Pseudoephedrine HCL 30 MG TABLET PO (15:01)
[2022-04-20] MEDS: Acetaminophen 325 MG TABLET 650 MG PO (18:53)
[2022-04-20 19:45] VITALS: BP 141/93; PULSE 102; RESP 18; TEMP 36.2; O2SAT 98
[2022-04-20] MEDS: traZODone HCL 50 MG TABLET PO (19:48)
[2022-04-20] MEDS: Lithium Carbonate 300 MG TABLET 900 MG PO (19:48)
[2022-04-20] MEDS: Mineral Oil/Petrolatum,White 106 GM Tube 1 APPL TOPICAL (19:51)
[2022-04-21 10:10] VITALS: BP 138/83; PULSE 112; RESP 18; TEMP 36.7; O2SAT 95
[2022-04-21] MEDS: Lithium Carbonate ER 300 MG TABLET.ER 600 MG PO (10:12)
[2022-04-21] MEDS: Fluticasone Propionate Nasal 16 GM SPRAY 1 SPRAY NOSTRIL-B (10:12)
[2022-04-21] MEDS: Multivitamin TABLET 1 TAB PO (10:13)
[2022-04-21] MEDS: atenoloL 100 MG TABLET PO (10:13)
[2022-04-21] MEDS: Omeprazole 20 MG CAPSULE.DR PO ×2 (10:13→15:45)
[2022-04-21] MEDS: cloZAPine 100 MG TABLET PO ×2 (10:13→19:44)
[2022-04-21] MEDS: LORazepam 1 MG TABLET PO ×2 (10:49→17:05)
[2022-04-21] MEDS: chlorproMAZINE HCl 100 MG TABLET PO ×2 (10:49→19:44)
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
[2022-04-21] MEDS: guaiFENesin DM 100/10/5 ML 5 ML SYRUP PO ×2 (16:11→22:07)
[2022-04-21] MEDS: Pseudoephedrine HCL 30 MG TABLET PO (16:11)
[2022-04-21] MEDS: Sodium Chloride 0.65 % Nasal 44 ML SPRBTL 1 SPRAY NOSTRIL-B ×2 (17:19→20:16)
[2022-04-21] MEDS: hydrOXYzine HCL 25 MG TABLET PO (18:01)
[2022-04-21] MEDS: Lithium Carbonate 300 MG TABLET 900 MG PO (19:44)
[2022-04-21 19:45] VITALS: BP 151/86; PULSE 103; RESP 18; TEMP 36.6; O2SAT 96
[2022-04-22] MEDS: Pseudoephedrine HCL 30 MG TABLET PO ×2 (05:56→16:25)
[2022-04-22] MEDS: Omeprazole 20 MG CAPSULE.DR PO ×2 (05:56→16:56)
[2022-04-22] MEDS: guaiFENesin DM 100/10/5 ML 5 ML SYRUP PO ×2 (05:58→12:43)
[2022-04-22 08:09] VITALS: BP 153/91; PULSE 106; RESP 17; TEMP 36.6; O2SAT 97
[2022-04-22] MEDS: Fluticasone Propionate Nasal 16 GM SPRAY 1 SPRAY NOSTRIL-B (08:09)
[2022-04-22] MEDS: Mineral Oil/Petrolatum,White 106 GM Tube 1 APPL TOPICAL ×2 (08:10→19:52)
[2022-04-22] MEDS: cloZAPine 100 MG TABLET PO (08:10)
[2022-04-22] MEDS: Lithium Carbonate ER 300 MG TABLET.ER 600 MG PO (08:10)
[2022-04-22] MEDS: atenoloL 100 MG TABLET PO (08:11)
[2022-04-22] MEDS: Acetaminophen 325 MG TABLET 650 MG PO ×2 (08:11→17:43)
[2022-04-22] MEDS: Multivitamin TABLET 1 TAB PO (08:11)
[2022-04-22] MEDS: Magnesium Hydrox/Alum Hydrox 30 ML ORAL.SUSP PO ×2 (09:08→16:27)
[2022-04-22] MEDS: LORazepam 1 MG TABLET PO (12:43)
[2022-04-22] MEDS: chlorproMAZINE HCl 100 MG TABLET PO (14:40)
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
[2022-04-22] MEDS: Calcium Carbonate 750 MG TAB.CHEW PO (18:11)
[2022-04-22] MEDS: Sodium Chloride 0.65 % Nasal 44 ML SPRBTL 1 SPRAY NOSTRIL-B (18:55)
[2022-04-22 19:48] VITALS: BP 138/93; PULSE 112; RESP 17; TEMP 36.3; O2SAT 96
[2022-04-22] MEDS: Lithium Carbonate 300 MG TABLET 900 MG PO (19:51)
[2022-04-22] MEDS: cloZAPine 25 MG TABLET 125 MG PO (19:51)
[2022-04-22] MEDS: hydrOXYzine HCL 25 MG TABLET PO (19:52)
[2022-04-22] MEDS: traZODone HCL 50 MG TABLET PO (19:52)
[2022-04-23 08:10] VITALS: BP 145/79; PULSE 121; RESP 17; TEMP 36.7; O2SAT 97
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
[2022-04-23] MEDS: Multivitamin TABLET 1 TAB PO (08:37)
[2022-04-23] MEDS: Lithium Carbonate ER 300 MG TABLET.ER 600 MG PO (08:37)
[2022-04-23] MEDS: atenoloL 100 MG TABLET PO (08:37)
[2022-04-23] MEDS: cloZAPine 100 MG TABLET PO (08:38)
[2022-04-23] MEDS: Omeprazole 20 MG CAPSULE.DR PO ×2 (08:38→16:19)
[2022-04-23] MEDS: chlorproMAZINE HCl 100 MG TABLET PO ×2 (08:57→18:28)
[2022-04-23] MEDS: LORazepam 1 MG TABLET PO ×2 (08:57→17:06)
[2022-04-23] MEDS: Sodium Chloride 0.65 % Nasal 44 ML SPRBTL 1 SPRAY NOSTRIL-B ×2 (11:34→21:40)
[2022-04-23] MEDS: hydrOXYzine HCL 25 MG TABLET PO ×2 (12:19→18:28)
[2022-04-23] MEDS: Magnesium Hydrox/Alum Hydrox 30 ML ORAL.SUSP PO ×2 (12:52→18:44)
[2022-04-23] MEDS: Benztropine Mesylate 1 MG TABLET PO (14:35)
[2022-04-23] MEDS: Acetaminophen 325 MG TABLET 650 MG PO (16:20)
[2022-04-23] MEDS: Lithium Carbonate 300 MG TABLET 900 MG PO (20:04)
[2022-04-23] MEDS: cloZAPine 25 MG TABLET 125 MG PO (20:04)
[2022-04-23 20:09] VITALS: BP 133/96; PULSE 107; TEMP 36.6; O2SAT 98
[2022-04-23] MEDS: guaiFENesin DM 600/30 1 TAB TAB.ER.12H PO (21:15)
[2022-04-24 00:52] LABS: Clozapine (Clozaril) 236 mcg/L; Norclozapine 98 mcg/L (25-400)
[2022-04-24 07:00] VITALS: BMI 31.0
[2022-04-24 08:38] LABS: Neut%MD 68.8 %; Neutrophils Absolute Auto 6.4 x10*3/uL (2.0-8.3); WBCANC 9.4 X10*3/uL
[2022-04-24 08:40] VITALS: BP 139/85; PULSE 99; RESP 18; TEMP 36.2; O2SAT 97
[2022-04-24] MEDS: Omeprazole 20 MG CAPSULE.DR PO ×2 (08:43→16:59)
[2022-04-24] MEDS: Multivitamin TABLET 1 TAB PO (08:43)
[2022-04-24] MEDS: atenoloL 100 MG TABLET PO (08:44)
[2022-04-24] MEDS: Lithium Carbonate ER 300 MG TABLET.ER 600 MG PO (08:44)
[2022-04-24] MEDS: Fluticasone Propionate Nasal 16 GM SPRAY 1 SPRAY NOSTRIL-B (08:50)
[2022-04-24] MEDS: cloZAPine 100 MG TABLET PO (09:06)
[2022-04-24] MEDS: hydrOXYzine HCL 25 MG TABLET PO ×2 (10:34→23:14)
[2022-04-24] MEDS: Benztropine Mesylate 1 MG TABLET PO (10:34)
[2022-04-24] MEDS: chlorproMAZINE HCl 100 MG TABLET PO ×2 (10:34→23:14)
[2022-04-24] MEDS: Sodium Chloride 0.65 % Nasal 44 ML SPRBTL 1 SPRAY NOSTRIL-B ×3 (13:17→21:59)
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
[2022-04-24] MEDS: Magnesium Hydrox/Alum Hydrox 30 ML ORAL.SUSP PO (15:05)
[2022-04-24] MEDS: Acetaminophen 325 MG TABLET 650 MG PO (16:58)
[2022-04-24] MEDS: LORazepam 1 MG TABLET PO (16:59)
[2022-04-24 21:52] VITALS: BP 141/85; PULSE 96; RESP 18; TEMP 36.2; O2SAT 100
[2022-04-24] MEDS: cloZAPine 25 MG TABLET 125 MG PO (21:55)
[2022-04-24] MEDS: Lithium Carbonate 300 MG TABLET 1050 MG PO (21:55)
[2022-04-24] MEDS: Mineral Oil/Petrolatum,White 106 GM Tube 1 APPL TOPICAL (21:58)
[2022-04-25] MEDS: LORazepam 1 MG TABLET PO (00:22)
[2022-04-25] MEDS: traZODone HCL 50 MG TABLET PO (00:22)
[2022-04-25 09:05] VITALS: BP 142/79; PULSE 97; RESP 18; TEMP 36.6; O2SAT 98
[2022-04-25] MEDS: cloZAPine 25 MG TABLET 125 MG PO ×2 (09:09→20:08)
[2022-04-25] MEDS: Lithium Carbonate ER 300 MG TABLET.ER 600 MG PO (09:10)
[2022-04-25] MEDS: atenoloL 100 MG TABLET PO (09:10)
[2022-04-25] MEDS: Multivitamin TABLET 1 TAB PO (09:11)
[2022-04-25] MEDS: Omeprazole 20 MG CAPSULE.DR PO ×2 (09:11→17:04)
[2022-04-25] MEDS: Fluticasone Propionate Nasal 16 GM SPRAY 1 SPRAY NOSTRIL-B (10:07)
[2022-04-25] MEDS: Sodium Chloride 0.65 % Nasal 44 ML SPRBTL 1 SPRAY NOSTRIL-B ×2 (10:07→20:14)
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
[2022-04-25] MEDS: Magnesium Hydrox/Alum Hydrox 30 ML ORAL.SUSP PO (13:17)
[2022-04-25] MEDS: Paliperidone Palmitate 234 MG/1.5 ML SYRINGE IM (17:12)
[2022-04-25] MEDS: Lithium Carbonate 300 MG TABLET 1050 MG PO (20:07)
[2022-04-25] MEDS: hydrOXYzine HCL 25 MG TABLET PO (20:14)
[2022-04-25] MEDS: chlorproMAZINE HCl 100 MG TABLET PO (20:14)
[2022-04-25 20:17] VITALS: BP 167/82; PULSE 107; TEMP 36.4; O2SAT 97
[2022-04-25] MEDS: Acetaminophen 325 MG TABLET 650 MG PO (21:50)
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
[2022-04-26 10:00] VITALS: BP 133/94; PULSE 123; RESP 20; TEMP 36.8; O2SAT 98
[2022-04-26] MEDS: Omeprazole 20 MG CAPSULE.DR PO ×2 (10:39→16:15)
[2022-04-26] MEDS: atenoloL 100 MG TABLET PO (10:39)
[2022-04-26] MEDS: Lithium Carbonate ER 300 MG TABLET.ER 600 MG PO (10:39)
[2022-04-26] MEDS: Multivitamin TABLET 1 TAB PO (10:39)
[2022-04-26] MEDS: cloZAPine 25 MG TABLET 125 MG PO ×2 (10:41→20:20)
[2022-04-26] MEDS: Fluticasone Propionate Nasal 16 GM SPRAY 1 SPRAY NOSTRIL-B (10:44)
[2022-04-26] MEDS: Sodium Chloride 0.65 % Nasal 44 ML SPRBTL 1 SPRAY NOSTRIL-B ×2 (10:44→15:53)
[2022-04-26] MEDS: hydrOXYzine HCL 25 MG TABLET PO ×2 (11:15→21:53)
[2022-04-26] MEDS: chlorproMAZINE HCl 100 MG TABLET PO ×2 (14:21→21:53)
[2022-04-26] MEDS: LORazepam 1 MG TABLET PO (14:21)
[2022-04-26] MEDS: Lithium Carbonate 300 MG TABLET 1050 MG PO (20:20)
[2022-04-26 20:23] VITALS: BP 158/78; PULSE 105; TEMP 36.7; O2SAT 97
[2022-04-27] MEDS: LORazepam 1 MG TABLET PO ×2 (01:35→17:18)
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
[2022-04-27 10:00] VITALS: BP 134/82; PULSE 109; RESP 18; TEMP 36.9; O2SAT 97
[2022-04-27] MEDS: Lithium Carbonate ER 300 MG TABLET.ER 600 MG PO (10:05)
[2022-04-27] MEDS: cloZAPine 25 MG TABLET 125 MG PO ×2 (10:05→19:51)
[2022-04-27] MEDS: atenoloL 100 MG TABLET PO (10:06)
[2022-04-27] MEDS: Multivitamin TABLET 1 TAB PO (10:06)
[2022-04-27] MEDS: Fluticasone Propionate Nasal 16 GM SPRAY 1 SPRAY NOSTRIL-B (10:07)
[2022-04-27] MEDS: Omeprazole 20 MG CAPSULE.DR PO ×2 (10:07→16:00)
[2022-04-27] MEDS: chlorproMAZINE HCl 100 MG TABLET PO ×2 (11:09→20:19)
[2022-04-27] MEDS: Magnesium Hydrox/Alum Hydrox 30 ML ORAL.SUSP PO (15:02)
[2022-04-27] MEDS: Benztropine Mesylate 1 MG TABLET PO (16:31)
[2022-04-27] MEDS: hydrOXYzine HCL 25 MG TABLET PO (16:31)
[2022-04-27] MEDS: Sodium Chloride 0.65 % Nasal 44 ML SPRBTL 1 SPRAY NOSTRIL-B (17:38)
[2022-04-27 19:00] VITALS: BP 142/82; PULSE 96; RESP 16; TEMP 36.6; O2SAT 99
[2022-04-27] MEDS: Acetaminophen 325 MG TABLET 650 MG PO (19:15)
[2022-04-27] MEDS: Lithium Carbonate 300 MG TABLET 1050 MG PO (19:52)
[2022-04-27] MEDS: traZODone HCL 50 MG TABLET PO (23:53)
[2022-04-28] MEDS: Sodium Chloride 0.65 % Nasal 44 ML SPRBTL 1 SPRAY NOSTRIL-B (00:21)
[2022-04-28] MEDS: hydrOXYzine HCL 25 MG TABLET PO ×2 (00:44→20:36)
[2022-04-28 08:50] VITALS: BP 139/81; PULSE 113; RESP 18; TEMP 36.4; O2SAT 94
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
[2022-04-28] MEDS: cloZAPine 25 MG TABLET 125 MG PO (08:59)
[2022-04-28] MEDS: atenoloL 100 MG TABLET PO (08:59)
[2022-04-28] MEDS: Omeprazole 20 MG CAPSULE.DR PO ×2 (08:59→16:07)
[2022-04-28] MEDS: Lithium Carbonate ER 300 MG TABLET.ER 600 MG PO (09:00)
[2022-04-28] MEDS: Multivitamin TABLET 1 TAB PO (09:00)
[2022-04-28] MEDS: Fluticasone Propionate Nasal 16 GM SPRAY 1 SPRAY NOSTRIL-B (10:49)
[2022-04-28] MEDS: Mineral Oil/Petrolatum,White 106 GM Tube 1 APPL TOPICAL (16:42)
[2022-04-28] MEDS: Lithium Carbonate 300 MG TABLET 1050 MG PO (20:35)
[2022-04-28] MEDS: chlorproMAZINE HCl 100 MG TABLET PO (20:36)
[2022-04-28] MEDS: cloZAPine 25 MG TABLET 150 MG PO (20:36)
[2022-04-28] MEDS: LORazepam 1 MG TABLET PO (22:56)
[2022-04-28] MEDS: traZODone HCL 50 MG TABLET PO (22:56)
[2022-04-29 10:30] VITALS: BP 120/80; PULSE 80; RESP 16; TEMP 36.9; O2SAT 98
[2022-04-29] MEDS: Lithium Carbonate ER 300 MG TABLET.ER 600 MG PO (10:38)
[2022-04-29] MEDS: Omeprazole 20 MG CAPSULE.DR PO ×2 (10:38→15:10)
[2022-04-29] MEDS: atenoloL 100 MG TABLET PO (10:39)
[2022-04-29] MEDS: Multivitamin TABLET 1 TAB PO (10:39)
[2022-04-29] MEDS: cloZAPine 25 MG TABLET 50 MG PO (10:42)
[2022-04-29] MEDS: Fluticasone Propionate Nasal 16 GM SPRAY 1 SPRAY NOSTRIL-B (10:43)
[2022-04-29] MEDS: cloZAPine 100 MG TABLET PO (10:47)
[2022-04-29] MEDS: Mineral Oil/Petrolatum,White 106 GM Tube 1 APPL TOPICAL ×2 (10:49→19:49)
[2022-04-29] MEDS: Sodium Chloride 0.65 % Nasal 44 ML SPRBTL 1 SPRAY NOSTRIL-B (11:04)
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
[2022-04-29] MEDS: chlorproMAZINE HCl 100 MG TABLET PO ×2 (12:26→18:22)
[2022-04-29] MEDS: LORazepam 1 MG TABLET PO ×2 (15:10→23:02)
[2022-04-29] MEDS: hydrOXYzine HCL 25 MG TABLET PO (16:35)
[2022-04-29] MEDS: Magnesium Hydrox/Alum Hydrox 30 ML ORAL.SUSP PO (18:22)
[2022-04-29] MEDS: Acetaminophen 325 MG TABLET 650 MG PO (19:32)
[2022-04-29] MEDS: Lithium Carbonate 300 MG TABLET 1050 MG PO (19:41)
[2022-04-29] MEDS: cloZAPine 25 MG TABLET 150 MG PO (19:43)
[2022-04-29 19:47] VITALS: BP 132/83; PULSE 103; RESP 16; TEMP 36.3; O2SAT 96
[2022-04-30 08:25] VITALS: BP 126/84; PULSE 121; RESP 18; TEMP 36.4; O2SAT 96
[2022-04-30] MEDS: atenoloL 100 MG TABLET PO (08:34)
[2022-04-30] MEDS: Omeprazole 20 MG CAPSULE.DR PO ×2 (08:34→16:37)
[2022-04-30] MEDS: cloZAPine 100 MG TABLET PO ×2 (08:34→20:11)
[2022-04-30] MEDS: Fluticasone Propionate Nasal 16 GM SPRAY 1 SPRAY NOSTRIL-B (08:35)
[2022-04-30] MEDS: Lithium Carbonate ER 300 MG TABLET.ER 600 MG PO (08:35)
[2022-04-30] MEDS: Multivitamin TABLET 1 TAB PO (08:35)
[2022-04-30] MEDS: cloZAPine 25 MG TABLET 50 MG PO ×2 (08:35→20:11)
[2022-04-30] MEDS: Mineral Oil/Petrolatum,White 106 GM Tube 1 APPL TOPICAL (08:35)
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
[2022-04-30] MEDS: chlorproMAZINE HCl 100 MG TABLET PO (18:19)
[2022-04-30] MEDS: LORazepam 1 MG TABLET PO (18:19)
[2022-04-30 20:05] VITALS: BP 137/96; PULSE 119; TEMP 36.4; O2SAT 96
[2022-04-30] MEDS: Lithium Carbonate 300 MG TABLET 1050 MG PO (20:11)
[2022-04-30] MEDS: traZODone HCL 50 MG TABLET PO (21:33)
[2022-04-30] MEDS: hydrOXYzine HCL 25 MG TABLET PO (21:33)
[2022-04-30] MEDS: Magnesium Hydrox/Alum Hydrox 30 ML ORAL.SUSP PO (22:48)
[2022-05-01 07:00] VITALS: BMI 32.1
[2022-05-01] MEDS: Lithium Carbonate ER 300 MG TABLET.ER 600 MG PO (08:06)
[2022-05-01] MEDS: Omeprazole 20 MG CAPSULE.DR PO ×2 (08:06→16:34)
[2022-05-01] MEDS: Multivitamin TABLET 1 TAB PO (08:07)
[2022-05-01] MEDS: atenoloL 100 MG TABLET PO (08:07)
[2022-05-01] MEDS: Fluticasone Propionate Nasal 16 GM SPRAY 1 SPRAY NOSTRIL-B (08:07)
[2022-05-01] MEDS: cloZAPine 100 MG TABLET PO ×2 (08:07→20:18)
[2022-05-01] MEDS: Mineral Oil/Petrolatum,White 106 GM Tube 1 APPL TOPICAL ×2 (08:07→21:56)
[2022-05-01] MEDS: cloZAPine 25 MG TABLET 50 MG PO ×2 (08:07→20:18)
[2022-05-01 08:10] VITALS: BP 144/98; PULSE 120; RESP 18; TEMP 36.6; O2SAT 96
[2022-05-01 08:47] LABS: Neut%MD 76.1 %; Neutrophils Absolute Auto 10.9 x10*3/uL (2.0-8.3); WBCANC 14.3 X10*3/uL
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
[2022-05-01] MEDS: Magnesium Hydrox/Alum Hydrox 30 ML ORAL.SUSP PO ×2 (10:55→21:22)
[2022-05-01] MEDS: Sodium Chloride 0.65 % Nasal 44 ML SPRBTL 1 SPRAY NOSTRIL-B ×2 (11:52→18:11)
[2022-05-01] MEDS: Acetaminophen 325 MG TABLET 650 MG PO (11:55)
[2022-05-01] MEDS: chlorproMAZINE HCl 100 MG TABLET PO (13:48)
[2022-05-01] MEDS: LORazepam 1 MG TABLET PO (13:48)
[2022-05-01] MEDS: Calcium Carbonate 750 MG TAB.CHEW PO (14:50)
[2022-05-01] MEDS: hydrOXYzine HCL 25 MG TABLET PO (14:52)
[2022-05-01 18:00] VITALS: BP 146/92; PULSE 111; RESP 20; TEMP 36.5; O2SAT 97
[2022-05-01] MEDS: Lithium Carbonate 300 MG TABLET 1050 MG PO (20:15)
--- NOTE | 2022-05-02 08:48 | P.PNPSI_ITS ---
Subjective Subjective Date of Service: 05/02/22 Reason For Visit: psychosis Subjective Notes: Conditional Voluntary Interim History: Pt reports he woke up feeling good. He reports he has multiple types of dreams that he finds fascinating. He denies suicidal or homicidal ideation. Themes of having power, being invincible are common. No behavioral concerns. Medication Compliance: Yes Side effects from medications: No Review of Systems Review of Systems Nothing acute Yes all other systems are reviewed and are negative Constitutional: Denies fever(s) Eyes: Denies diplopia Denies change in voice Cardiovascular: Reports no additional cardiovascular complaints Respiratory: Reports change in phlegm color, Reports chest congestion and Reports cough Gastrointestinal: Reports no additional gastrointestinal complaints Musculoskeletal: Reports no additional musculoskeletal complaints Reports system reviewed and no additional complaints, except as documented Psychiatric: Reports as per [facility] Mental Status Exam Mental Status Exam Narrative: Appearance: casually groomed, fair hygiene in NAD Behavior:overly friendly at times psychomotor: no agitation or retardation noted Speech:clear, normal rate/rhythm, volume, spontaneous Thought process:tangential Thought content:feeling tired bored, paranoia towards OP providers. Mood: tired Affect: congruent SI:none HI:none VH/AH:denies Delusions:paranoia, some residual grandiose delusions Insight/judgment:poor x 2. Memory/cog: alert, oriented x 3. Diagnostics Vital Signs (24Hr): Vital Signs - 24 hr 05/02/22 09:30 05/02/22 20:02 Temperature 97.9 F 97.4 F Pulse Rate 124 H 102 H Respiratory Rate 18 18 Blood Pressure 141/102 H 131/77 Pulse Oximetry 96 95 Oxygen Delivery Method Room Air Room Air BMI result Body Mass Index 32.1 Labs Results: 03/26/22 07:57 04/09/22 08:34 Labs: Laboratory Results - last 48 hr 05/01/22 08:24 Absolute Neuts (auto) 10.9 H Imaging Radiology Impressions: ITS Impressions Chest X-Ray 05/02/22 16:05 IMPRESSION: Unremarkable examination. Medications Medications Current Medications Acetaminophen (Acetaminophen 325 Mg Tablet) 650 mg PO Q6H PRN PRN Reason: Headache/Pain Mild Scale (1-3) Last Admin: 05/02/22 17:26 Dose: 650 mg Al Hydroxide/Mg Hydroxide (Magnesium Hydrox/Alum Hydrox 30 Ml Oral.Susp) 30 ml PO Q6H PRN PRN Reason: Heartburn/Nausea Last Admin: 05/01/22 21:22 Dose: 30 ml Atenolol (Atenolol 100 Mg Tablet) 100 mg PO DAILY [facility]; Protocol Last Admin: 05/02/22 09:35 Dose: 100 mg Bacitracin (Bacitracin Oint 14 Gm Tube) 1 appl TOPICAL DAILY [facility]; Protocol Last Admin: 05/02/22 10:16 Dose: Not Given Benztropine Mesylate (Benztropine Mesylate 1 Mg Tablet) 1 mg PO TID PRN PRN Reason: Extrapyramidal Effects Last Admin: 04/27/22 16:31 Dose: 1 mg Calcium Carbonate (Calcium Carbonate 750 Mg Tab.Chew) 750 mg PO Q6H PRN PRN Reason: Heartburn Last Admin: 05/01/22 14:50 Dose: 750 mg Chlorpromazine HCl (Chlorpromazine Hcl 100 Mg Tablet) 100 mg PO TID PRN PRN Reason: Anxiety Last Admin: 05/02/22 20:02 Dose: 100 mg Clozapine (Clozapine 25 Mg Tablet) 50 mg PO DAILY [facility] Last Admin: 05/02/22 09:35 Dose: 50 mg Clozapine (Clozapine 100 Mg Tablet) 100 mg PO DAILY [facility] Last Admin: 05/02/22 09:35 Dose: 100 mg Clozapine (Clozapine 100 Mg Tablet) 100 mg PO BEDTIME [facility] Last Admin: 05/02/22 20:02 Dose: 100 mg Clozapine (Clozapine 25 Mg Tablet) 50 mg PO BEDTIME [facility] Last Admin: 05/02/22 20:04 Dose: 50 mg Doxycycline Hyclate (Doxycycline Hyclate 100 Mg Tablet) 100 mg PO Q12H [facility] Fluticasone Propionate (Fluticasone Propionate Nasal 16 Gm [place]) 1 spray NOSTRIL-B DAILY [facility] Last Admin: 05/02/22 09:34 Dose: 1 spray Guaifenesin/Dextromethorphan (Guaifenesin Dm 600/30 1 Tab Tab.Er.12h) 1 tab PO BID [facility] Last Admin: 05/02/22 20:02 Dose: 1 tab Haloperidol Lactate (Haloperidol Lactate 5 Mg/Ml Vial) 5 mg IM BID PRN PRN Reason: Refusal of Clozaril Hydroxyzine HCl (Hydroxyzine Hcl 25 Mg Tablet) 25 mg PO Q6H PRN PRN Reason: Anxiety Last Admin: 05/02/22 20:02 Dose: 25 mg [place] Carbonate ([place] Carbonate Er 300 Mg Tablet.Er) 600 mg PO DAILY [facility] Last Admin: 05/02/22 09:35 Dose: 600 mg [place] Carbonate ([place] Carbonate 300 Mg Tablet) 1,050 mg PO BEDTIME MAHENDRA Last Admin: 05/02/22 20:02 Dose: 1,050 mg Loperamide HCl (Loperamide Hcl 2 Mg Capsule) 2 mg PO Q4H PRN PRN Reason: Loose Stool Lorazepam (Lorazepam 1 Mg Tablet) 1 mg PO Q6H PRN PRN Reason: Anxiety Last Admin: 05/02/22 20:04 Dose: 1 mg Magnesium Hydroxide (Milk Of Magnesia 30 Ml Oral.Susp) 30 ml PO DAILY PRN PRN Reason: Constipation Multi-Ingred Cream/Lotion/Oil/Oint (Mineral Oil/Petrolatum,White 106 Gm Tube) 1 appl TOPICAL BID [facility]; Protocol Last Admin: 05/02/22 20:02 Dose: Not Given Multi-Ingred Medicated Throat [place] (Throat [place], Medicated 20 Ml Bottle) 1 spray MUCOUS MEM Q2H PRN PRN Reason: throat pain Last Admin: 05/02/22 20:38 Dose: 1 spray Multivitamins/Vitamin C (Multivitamin Tablet) 1 tab PO DAILY [facility] Last Admin: 05/02/22 09:35 Dose: 1 tab Omeprazole (Omeprazole 20 Mg Capsule.Dr) 20 mg PO BID@0630,1630 [facility] Last Admin: 05/02/22 16:16 Dose: 20 mg Paliperidone Palmitate (Paliperidone Palmitate 234 Mg/1.5 Ml Syringe) 234 mg IM Q28D [facility] Last Admin: 04/25/22 17:12 Dose: 234 mg Sodium Chloride (Sodium Chloride 0.65 % Nasal 44 Ml Sprbtl) 1 spray NOSTRIL-B Q1H PRN PRN Reason: dry nose Last Admin: 05/02/22 20:38 Dose: 1 spray Trazodone HCl (Trazodone Hcl 50 Mg Tablet) 50 mg PO BEDTIME PRN PRN Reason: Insomnia Last Admin: 05/02/22 22:55 Dose: 50 mg Allergies Allergies Allergy/AdvReac Type Severity Reaction Status Date / Time No Known Allergies Allergy Unverified 05/17/20 19:19 [No Known Allergies*] Assessment & Plan Assessment & Plan (1) Schizophrenia, chronic condition: Status: Acute Code(s): F20.9 - Schizophrenia, unspecified Plan 05/02 continue current medications. I spent minutes with the patient and/or on the patient floor today, greater than?50% of which was spent counseling/coordinating care. Reason for contiued inpatient stay Substantial Risk for: inability to function
[2022-05-02 09:30] VITALS: BP 141/102; PULSE 124; RESP 18; TEMP 36.6; O2SAT 96
[2022-05-02] MEDS: Omeprazole 20 MG CAPSULE.DR PO ×2 (09:34→16:16)
[2022-05-02] MEDS: Fluticasone Propionate Nasal 16 GM SPRAY 1 SPRAY NOSTRIL-B (09:34)
[2022-05-02] MEDS: cloZAPine 100 MG TABLET PO ×2 (09:35→20:02)
[2022-05-02] MEDS: cloZAPine 25 MG TABLET 50 MG PO ×2 (09:35→20:04)
[2022-05-02] MEDS: atenoloL 100 MG TABLET PO (09:35)
[2022-05-02] MEDS: Lithium Carbonate ER 300 MG TABLET.ER 600 MG PO (09:35)
[2022-05-02] MEDS: Multivitamin TABLET 1 TAB PO (09:35)
[2022-05-02] MEDS: Sodium Chloride 0.65 % Nasal 44 ML SPRBTL 1 SPRAY NOSTRIL-B ×3 (11:08→20:38)
[2022-05-02] MEDS: LORazepam 1 MG TABLET PO ×2 (11:51→20:04)
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
[2022-05-02] MEDS: chlorproMAZINE HCl 100 MG TABLET PO ×2 (15:43→20:02)
[2022-05-02] MEDS: Acetaminophen 325 MG TABLET 650 MG PO (17:26)
[2022-05-02 20:02] VITALS: BP 131/77; PULSE 102; RESP 18; TEMP 36.3; O2SAT 95
[2022-05-02] MEDS: Lithium Carbonate 300 MG TABLET 1050 MG PO (20:02)
[2022-05-02] MEDS: guaiFENesin DM 600/30 1 TAB TAB.ER.12H PO (20:02)
[2022-05-02] MEDS: hydrOXYzine HCL 25 MG TABLET PO (20:02)
[2022-05-02] MEDS: traZODone HCL 50 MG TABLET PO ×2 (20:04→22:55)
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
[2022-05-03 10:00] VITALS: BP 138/90; PULSE 112; RESP 18; TEMP 37; O2SAT 95
[2022-05-03] MEDS: cloZAPine 100 MG TABLET PO ×2 (10:10→20:11)
[2022-05-03] MEDS: cloZAPine 25 MG TABLET 50 MG PO ×2 (10:10→20:10)
[2022-05-03] MEDS: Lithium Carbonate ER 300 MG TABLET.ER 600 MG PO (10:10)
[2022-05-03] MEDS: guaiFENesin DM 600/30 1 TAB TAB.ER.12H PO ×2 (10:10→20:11)
[2022-05-03] MEDS: atenoloL 100 MG TABLET PO (10:11)
[2022-05-03] MEDS: Omeprazole 20 MG CAPSULE.DR PO ×2 (10:11→15:56)
[2022-05-03] MEDS: Multivitamin TABLET 1 TAB PO (10:11)
[2022-05-03] MEDS: Sodium Chloride 0.65 % Nasal 44 ML SPRBTL 1 SPRAY NOSTRIL-B ×2 (10:15→20:16)
[2022-05-03] MEDS: Mineral Oil/Petrolatum,White 106 GM Tube 1 APPL TOPICAL (10:15)
[2022-05-03] MEDS: Fluticasone Propionate Nasal 16 GM SPRAY 1 SPRAY NOSTRIL-B (10:15)
[2022-05-03] MEDS: chlorproMAZINE HCl 100 MG TABLET PO ×2 (12:37→20:12)
[2022-05-03] MEDS: LORazepam 1 MG TABLET PO ×2 (15:56→20:10)
[2022-05-03] MEDS: Lithium Carbonate 300 MG TABLET 1050 MG PO (20:09)
[2022-05-03] MEDS: traZODone HCL 50 MG TABLET PO ×2 (20:10→21:48)
[2022-05-03 21:48] VITALS: BP 125/74; PULSE 101; RESP 20; TEMP 36.4; O2SAT 94
[2022-05-04] MEDS: cloZAPine 25 MG TABLET 50 MG PO ×2 (10:26→20:47)
[2022-05-04] MEDS: Omeprazole 20 MG CAPSULE.DR PO ×2 (10:27→16:57)
[2022-05-04] MEDS: atenoloL 100 MG TABLET PO (10:27)
[2022-05-04] MEDS: guaiFENesin DM 600/30 1 TAB TAB.ER.12H PO ×2 (10:27→20:46)
[2022-05-04] MEDS: cloZAPine 100 MG TABLET PO ×2 (10:27→20:48)
[2022-05-04] MEDS: Multivitamin TABLET 1 TAB PO (10:27)
[2022-05-04] MEDS: Lithium Carbonate ER 300 MG TABLET.ER 600 MG PO (10:27)
[2022-05-04 10:30] VITALS: BP 156/94; PULSE 116; RESP 18; TEMP 36.8; O2SAT 95
[2022-05-04] MEDS: Mineral Oil/Petrolatum,White 106 GM Tube 1 APPL TOPICAL (10:33)
[2022-05-04] MEDS: Sodium Chloride 0.65 % Nasal 44 ML SPRBTL 1 SPRAY NOSTRIL-B ×2 (10:33→15:06)
[2022-05-04] MEDS: Fluticasone Propionate Nasal 16 GM SPRAY 1 SPRAY NOSTRIL-B (10:33)
--- NOTE | 2022-05-04 10:55 | P.PNPSI_ITS ---
Subjective Subjective Date of Service: 05/04/22 Reason For Visit: psychosis Subjective Notes: Green Warning Interim History: I spoke with pt, says he is feeling fine. Still feeling congested, continues to ask for cough syrup. Sleep was good, despite this says Im tired. Appetite is good. No questions or concerns, does not want med changes. Says he feels safe. Medication Compliance: Yes Side effects from medications: No Attending Groups: No Review of Systems Acute medical concerns: No Medical Review of Systems: unchanged Mental Status Exam Mental Status Exam Narrative: Appearance: casually groomed, fair hygiene in NAD Behavior:overly friendly at times psychomotor: no agitation or retardation noted Speech:clear, normal rate/rhythm, volume, spontaneous Thought process:tangential Thought content:feeling tired bored, paranoia towards OP providers. Mood: good Affect: congruent SI:none HI:none VH/AH:denies Delusions:paranoia, some residual grandiose delusions Insight/judgment:poor x 2. Memory/cog: alert, oriented x 3. Diagnostics Vital Signs (24Hr): Vital Signs - 24 hr 05/03/22 21:48 05/04/22 10:30 Temperature 97.6 F 98.2 F Pulse Rate 101 H 116 H Respiratory Rate 20 18 Blood Pressure 125/74 156/94 H Pulse Oximetry 94 95 Oxygen Delivery Method Room Air Room Air BMI result Body Mass Index 32.1 Labs Results: 03/26/22 07:57 04/09/22 08:34 Imaging Radiology Impressions: ITS Impressions Chest X-Ray 05/02/22 16:05 IMPRESSION: Unremarkable examination. Medications Medications Current Medications Acetaminophen (Acetaminophen 325 Mg Tablet) 650 mg PO Q6H PRN PRN Reason: Headache/Pain Mild Scale (1-3) Last Admin: 05/02/22 17:26 Dose: 650 mg Al Hydroxide/Mg Hydroxide (Magnesium Hydrox/Alum Hydrox 30 Ml Oral.Susp) 30 ml PO Q6H PRN PRN Reason: Heartburn/Nausea Last Admin: 05/01/22 21:22 Dose: 30 ml Atenolol (Atenolol 100 Mg Tablet) 100 mg PO DAILY MAHENDRA; Protocol Last Admin: 05/04/22 10:27 Dose: 100 mg Bacitracin (Bacitracin Oint 14 Gm Tube) 1 appl TOPICAL DAILY MAHENDRA; Protocol Last Admin: 05/04/22 10:33 Dose: Not Given Benztropine Mesylate (Benztropine Mesylate 1 Mg Tablet) 1 mg PO TID PRN PRN Reason: Extrapyramidal Effects Last Admin: 04/27/22 16:31 Dose: 1 mg Calcium Carbonate (Calcium Carbonate 750 Mg Tab.Chew) 750 mg PO Q6H PRN PRN Reason: Heartburn Last Admin: 05/01/22 14:50 Dose: 750 mg Chlorpromazine HCl (Chlorpromazine Hcl 100 Mg Tablet) 100 mg PO TID PRN PRN Reason: Anxiety Last Admin: 05/03/22 20:12 Dose: 100 mg Clozapine (Clozapine 25 Mg Tablet) 50 mg PO DAILY MAHENDRA Last Admin: 05/04/22 10:26 Dose: 50 mg Clozapine (Clozapine 100 Mg Tablet) 100 mg PO DAILY MA[facility]ENDRA Last Admin: 05/04/22 10:27 Dose: 100 mg Clozapine (Clozapine 100 Mg Tablet) 100 mg PO BEDTIME [facility]EN[facility] Last Admin: 05/03/22 20:11 Dose: 100 mg Clozapine (Clozapine 25 Mg Tablet) 50 mg PO BEDTIME [facility]ENDRA Last Admin: 05/03/22 20:10 Dose: 50 mg Doxycycline Hyclate (Doxycycline Hyclate 100 Mg Tablet) 100 mg PO Q12H [facility] Last Admin: 05/04/22 10:27 Dose: 100 mg Fluticasone Propionate (Fluticasone Propionate Nasal 16 Gm [place]) 1 spray NOSTRIL-B DAILY [facility] Last Admin: 05/04/22 10:33 Dose: 1 spray Guaifenesin/Dextromethorphan (Guaifenesin Dm 600/30 1 Tab Tab.Er.12h) 1 tab PO BID [facility]ENDRA Last Admin: 05/04/22 10:27 Dose: 1 tab Haloperidol Lactate (Haloperidol Lactate 5 Mg/Ml Vial) 5 mg IM BID PRN PRN Reason: Refusal of Clozaril Hydroxyzine HCl (Hydroxyzine Hcl 25 Mg Tablet) 25 mg PO Q6H PRN PRN Reason: Anxiety Last Admin: 05/02/22 20:02 Dose: 25 mg [place] Carbonate ([place] Carbonate Er 300 Mg Tablet.Er) 600 mg PO DAILY MAHENDRA Last Admin: 05/04/22 10:27 Dose: 600 mg [place] Carbonate ([place] Carbonate 300 Mg Tablet) 1,050 mg PO BEDTIME MAHENDRA Last Admin: 05/03/22 20:09 Dose: 1,050 mg Loperamide HCl (Loperamide Hcl 2 Mg Capsule) 2 mg PO Q4H PRN PRN Reason: Loose Stool Lorazepam (Lorazepam 1 Mg Tablet) 1 mg PO Q6H PRN PRN Reason: Anxiety Last Admin: 05/03/22 20:10 Dose: 1 mg Magnesium Hydroxide (Milk Of Magnesia 30 Ml Oral.Susp) 30 ml PO DAILY PRN PRN Reason: Constipation Multi-Ingred Cream/Lotion/Oil/Oint (Mineral Oil/Petrolatum,White 106 Gm Tube) 1 appl TOPICAL BID MAHENDRA; Protocol Last Admin: 05/04/22 10:33 Dose: 1 appl Multi-Ingred Medicated Throat [place] (Throat [place], Medicated 20 Ml Bottle) 1 spray MUCOUS MEM Q2H PRN PRN Reason: throat pain Last Admin: 05/04/22 10:33 Dose: 1 spray Multivitamins/Vitamin C (Multivitamin Tablet) 1 tab PO DAILY [facility]HENDRA Last Admin: 05/04/22 10:27 Dose: 1 tab Omeprazole (Omeprazole 20 Mg Capsule.Dr) 20 mg PO BID@0630,1630 [facility] Last Admin: 05/04/22 10:27 Dose: 20 mg Paliperidone Palmitate (Paliperidone Palmitate 234 Mg/1.5 Ml Syringe) 234 mg IM Q28D [facility] Last Admin: 04/25/22 17:12 Dose: 234 mg Sodium Chloride (Sodium Chloride 0.65 % Nasal 44 Ml Sprbtl) 1 spray NOSTRIL-B Q1H PRN PRN Reason: dry nose Last Admin: 05/04/22 10:33 Dose: 1 spray Trazodone HCl (Trazodone Hcl 50 Mg Tablet) 50 mg PO BEDTIME PRN PRN Reason: Insomnia Last Admin: 05/03/22 21:48 Dose: 50 mg Allergies Allergies Allergy/AdvReac Type Severity Reaction Status Date / Time No Known Allergies Allergy Unverified 05/17/20 19:19 [No Known Allergies*] Assessment & Plan Assessment & Plan (1) Schizophrenia, chronic condition: Status: Acute Code(s): F20.9 - Schizophrenia, unspecified Plan 05/02 continue current medications. 05/03 continues with paranoia towards OP providers, no med adjustments, working with SW on safe discharge 05/04 continue current medications I spent minutes with the patient and/or on the patient floor today, greater than?50% of which was spent counseling/coordinating care. Patient educated on: therapeutic strategies Reason for contiued inpatient stay Substantial Risk for: inability to function, rapid decompensation and med/psych decompensation
[2022-05-04] MEDS: chlorproMAZINE HCl 100 MG TABLET PO (15:06)
[2022-05-04] MEDS: LORazepam 1 MG TABLET PO (16:57)
[2022-05-04 20:00] VITALS: BP 152/84; PULSE 102; RESP 18; TEMP 36.6; O2SAT 95
[2022-05-04] MEDS: Lithium Carbonate 300 MG TABLET 1050 MG PO (20:51)
[2022-05-05 08:15] VITALS: BP 147/84; PULSE 111; RESP 18; TEMP 36.4; O2SAT 99
[2022-05-05] MEDS: cloZAPine 25 MG TABLET 50 MG PO ×2 (08:35→19:55)
[2022-05-05] MEDS: guaiFENesin DM 600/30 1 TAB TAB.ER.12H PO ×2 (08:35→19:54)
[2022-05-05] MEDS: Omeprazole 20 MG CAPSULE.DR PO ×2 (08:36→17:57)
[2022-05-05] MEDS: Fluticasone Propionate Nasal 16 GM SPRAY 1 SPRAY NOSTRIL-B (08:36)
[2022-05-05] MEDS: Multivitamin TABLET 1 TAB PO (08:36)
[2022-05-05] MEDS: Lithium Carbonate ER 300 MG TABLET.ER 600 MG PO (08:36)
[2022-05-05] MEDS: cloZAPine 100 MG TABLET PO ×2 (08:36→19:55)
[2022-05-05] MEDS: atenoloL 100 MG TABLET PO (08:36)
[2022-05-05] MEDS: LORazepam 1 MG TABLET PO ×2 (09:58→18:39)
[2022-05-05] MEDS: chlorproMAZINE HCl 100 MG TABLET PO ×2 (09:58→18:39)
--- NOTE | 2022-05-05 13:07 | P.PNPSI_ITS ---
Subjective Subjective Date of Service: 05/05/22 Reason For Visit: psychosis Subjective Notes: Green Warning Interim History: I attempted to speak with pt but he is asleep, he is able to tell me he feels safe, denies having questions or concerns. Medication Compliance: Yes Side effects from medications: No Attending Groups: No Review of Systems Acute medical concerns: No Medical Review of Systems: unchanged Mental Status Exam Mental Status Exam Narrative: Appearance: casually groomed, fair hygiene in NAD Behavior:overly friendly at times psychomotor: no agitation or retardation noted Speech:clear, normal rate/rhythm, volume, spontaneous Thought process:tangential Thought content:feeling tired bored, paranoia towards OP providers. Mood: good Affect: congruent SI:none HI:none VH/AH:denies Delusions:paranoia, some residual grandiose delusions Insight/judgment:poor x 2. Memory/cog: alert, oriented x 3. Diagnostics Vital Signs (24Hr): Vital Signs - 24 hr 05/04/22 20:00 05/05/22 08:15 Temperature 97.9 F 97.6 F Pulse Rate 102 H 111 H Respiratory Rate 18 18 Blood Pressure 152/84 H 147/84 H Pulse Oximetry 95 99 Oxygen Delivery Method Room Air Room Air BMI result Body Mass Index 32.1 Labs Results: 03/26/22 07:57 04/09/22 08:34 Imaging Radiology Impressions: ITS Impressions Chest X-Ray 05/02/22 16:05 IMPRESSION: Unremarkable examination. Medications Medications Current Medications Acetaminophen (Acetaminophen 325 Mg Tablet) 650 mg PO Q6H PRN PRN Reason: Headache/Pain Mild Scale (1-3) Last Admin: 05/02/22 17:26 Dose: 650 mg Al Hydroxide/Mg Hydroxide (Magnesium Hydrox/Alum Hydrox 30 Ml Oral.Susp) 30 ml PO Q6H PRN PRN Reason: Heartburn/Nausea Last Admin: 05/01/22 21:22 Dose: 30 ml Atenolol (Atenolol 100 Mg Tablet) 100 mg PO DAILY [facility]HENDRA; Protocol Last Admin: 05/05/22 08:36 Dose: 100 mg Bacitracin (Bacitracin Oint 14 Gm Tube) 1 appl TOPICAL DAILY [facility]HENDRA; Protocol Last Admin: 05/05/22 08:39 Dose: Not Given Benztropine Mesylate (Benztropine Mesylate 1 Mg Tablet) 1 mg PO TID PRN PRN Reason: Extrapyramidal Effects Last Admin: 04/27/22 16:31 Dose: 1 mg Calcium Carbonate (Calcium Carbonate 750 Mg Tab.Chew) 750 mg PO Q6H PRN PRN Reason: Heartburn Last Admin: 05/01/22 14:50 Dose: 750 mg Chlorpromazine HCl (Chlorpromazine Hcl 100 Mg Tablet) 100 mg PO TID PRN PRN Reason: Anxiety Last Admin: 05/05/22 09:58 Dose: 100 mg Clozapine (Clozapine 25 Mg Tablet) 50 mg PO DAILY [facility] Last Admin: 05/05/22 08:35 Dose: 50 mg Clozapine (Clozapine 100 Mg Tablet) 100 mg PO DAILY [facility] Last Admin: 05/05/22 08:36 Dose: 100 mg Clozapine (Clozapine 100 Mg Tablet) 100 mg PO BEDTIME [facility] Last Admin: 05/04/22 20:48 Dose: 100 mg Clozapine (Clozapine 25 Mg Tablet) 50 mg PO BEDTIME [facility] Last Admin: 05/04/22 20:47 Dose: 50 mg Doxycycline Hyclate (Doxycycline Hyclate 100 Mg Tablet) 100 mg PO Q12H [facility] Last Admin: 05/05/22 08:35 Dose: 100 mg Fluticasone Propionate (Fluticasone Propionate Nasal 16 Gm [place]) 1 spray NOSTRIL-B DAILY [facility] Last Admin: 05/05/22 08:36 Dose: 1 spray Guaifenesin/Dextromethorphan (Guaifenesin Dm 600/30 1 Tab Tab.Er.12h) 1 tab PO BID [facility] Last Admin: 05/05/22 08:35 Dose: 1 tab Haloperidol Lactate (Haloperidol Lactate 5 Mg/Ml Vial) 5 mg IM BID PRN PRN Reason: Refusal of Clozaril Hydroxyzine HCl (Hydroxyzine Hcl 25 Mg Tablet) 25 mg PO Q6H PRN PRN Reason: Anxiety Last Admin: 05/02/22 20:02 Dose: 25 mg [place] Carbonate ([place] Carbonate Er 300 Mg Tablet.Er) 600 mg PO DAILY [facility] Last Admin: 05/05/22 08:36 Dose: 600 mg [place] Carbonate ([place] Carbonate 300 Mg Tablet) 1,050 mg PO BEDTIME [facility] Last Admin: 05/04/22 20:51 Dose: 1,050 mg Loperamide HCl (Loperamide Hcl 2 Mg Capsule) 2 mg PO Q4H PRN PRN Reason: Loose Stool Lorazepam (Lorazepam 1 Mg Tablet) 1 mg PO Q6H PRN PRN Reason: Anxiety Last Admin: 05/05/22 09:58 Dose: 1 mg Magnesium Hydroxide (Milk Of Magnesia 30 Ml Oral.Susp) 30 ml PO DAILY PRN PRN Reason: Constipation Multi-Ingred Cream/Lotion/Oil/Oint (Mineral Oil/Petrolatum,White 106 Gm Tube) 1 appl TOPICAL BID MAHENDRA; Protocol Last Admin: 05/05/22 08:38 Dose: Not Given Multi-Ingred Medicated Throat [place] (Throat [place], Medicated 20 Ml Bottle) 1 spray MUCOUS MEM Q2H PRN PRN Reason: throat pain Last Admin: 05/05/22 09:58 Dose: 1 spray Multivitamins/Vitamin C (Multivitamin Tablet) 1 tab PO DAILY [facility]ENDR[facility] Last Admin: 05/05/22 08:36 Dose: 1 tab Omeprazole (Omeprazole 20 Mg Capsule.Dr) 20 mg PO BID@0630,1630 [facility] Last Admin: 05/05/22 08:36 Dose: 20 mg Paliperidone Palmitate (Paliperidone Palmitate 234 Mg/1.5 Ml Syringe) 234 mg IM Q28D [facility] Last Admin: 04/25/22 17:12 Dose: 234 mg Sodium Chloride (Sodium Chloride 0.65 % Nasal 44 Ml Sprbtl) 1 spray NOSTRIL-B Q1H PRN PRN Reason: dry nose Last Admin: 05/04/22 15:06 Dose: 1 spray Trazodone HCl (Trazodone Hcl 50 Mg Tablet) 50 mg PO BEDTIME PRN PRN Reason: Insomnia Last Admin: 05/03/22 21:48 Dose: 50 mg Allergies Allergies Allergy/AdvReac Type Severity Reaction Status Date / Time No Known Allergies Allergy Unverified 05/17/20 19:19 [No Known Allergies*] Assessment & Plan Assessment & Plan (1) Schizophrenia, chronic condition: Status: Acute Code(s): F20.9 - Schizophrenia, unspecified Plan 05/02 continue current medications. 05/03 continues with paranoia towards OP providers, no med adjustments, working with SW on safe discharge 05/04 continue current medications 05/05 continue current medications I spent minutes with the patient and/or on the patient floor today, greater than?50% of which was spent counseling/coordinating care. Patient educated on: other Reason for contiued inpatient stay Substantial Risk for: inability to function, rapid decompensation and med/psych decompensation
[2022-05-05] MEDS: Acetaminophen 325 MG TABLET 650 MG PO (14:09)
[2022-05-05 19:45] VITALS: BP 126/70; PULSE 104; RESP 18; TEMP 36.3; O2SAT 98
[2022-05-05] MEDS: Lithium Carbonate 300 MG TABLET 1050 MG PO (19:54)
[2022-05-06] MEDS: hydrOXYzine HCL 25 MG TABLET PO ×2 (03:52→15:45)
[2022-05-06] MEDS: Mineral Oil/Petrolatum,White 106 GM Tube 1 APPL TOPICAL (08:58)
[2022-05-06] MEDS: Fluticasone Propionate Nasal 16 GM SPRAY 1 SPRAY NOSTRIL-B (08:58)
[2022-05-06] MEDS: Lithium Carbonate ER 300 MG TABLET.ER 600 MG PO (08:59)
[2022-05-06] MEDS: Multivitamin TABLET 1 TAB PO (08:59)
[2022-05-06] MEDS: Omeprazole 20 MG CAPSULE.DR PO ×2 (08:59→15:45)
[2022-05-06] MEDS: cloZAPine 25 MG TABLET 50 MG PO ×2 (08:59→20:37)
[2022-05-06] MEDS: guaiFENesin DM 600/30 1 TAB TAB.ER.12H PO ×2 (08:59→20:37)
[2022-05-06] MEDS: cloZAPine 100 MG TABLET PO ×2 (09:00→20:38)
[2022-05-06] MEDS: atenoloL 100 MG TABLET PO (09:00)
[2022-05-06 09:02] VITALS: BP 152/92; PULSE 112; RESP 16; TEMP 36.6; O2SAT 96
[2022-05-06] MEDS: LORazepam 1 MG TABLET PO (09:38)
[2022-05-06] MEDS: chlorproMAZINE HCl 100 MG TABLET PO ×2 (09:38→20:37)
[2022-05-06] MEDS: Magnesium Hydrox/Alum Hydrox 30 ML ORAL.SUSP PO ×2 (10:30→16:21)
--- NOTE | 2022-05-06 13:52 | HO.PSYCHPN ---
Subjective Subjective Date of Service: 05/06/22 Reason For Visit: psychosis Subjective Notes: Conditional Voluntary Interim History: Pt mostly in bed today. He reports he is sleeping great! He denies SI/HI. He reports looking forward to go to program but has not been accepted to one. Per nursing, no behavioral concerns, taking meds as prescribed. Medication Compliance: Yes Review of Systems Review of Systems Nothing acute Yes all other systems are reviewed and are negative Constitutional: Denies fever(s) Eyes: Denies diplopia Denies change in voice Cardiovascular: Reports no additional cardiovascular complaints Respiratory: Reports change in phlegm color, Reports chest congestion and Reports cough Gastrointestinal: Reports no additional gastrointestinal complaints Musculoskeletal: Reports no additional musculoskeletal complaints Reports system reviewed and no additional complaints, except as documented Psychiatric: Reports as per HPI Mental Status Exam Mental Status Exam Narrative: Appearance: casually groomed, fair hygiene in NAD Behavior:overly friendly at times psychomotor: no agitation or retardation noted Speech:clear, normal rate/rhythm, volume, spontaneous Thought process:tangential Thought content:feeling tired bored, paranoia towards OP providers. Mood: good Affect: congruent SI:none HI:none VH/AH:denies Delusions:paranoia, some residual grandiose delusions Insight/judgment:poor x 2. Memory/cog: alert, oriented x 3. Diagnostics Vital Signs (24Hr): Vital Signs - 24 hr 05/05/22 19:45 05/06/22 09:02 Temperature 97.4 F 97.9 F Pulse Rate 104 H 112 H Respiratory Rate 18 16 Blood Pressure 126/70 152/92 H Pulse Oximetry 98 96 Oxygen Delivery Method Room Air Room Air BMI result Body Mass Index 32.1 Labs Results: 03/26/22 07:57 04/09/22 08:34 Imaging Radiology Impressions: ITS Impressions Chest X-Ray 05/02/22 16:05 IMPRESSION: Unremarkable examination. Medications Medications Current Medications Acetaminophen (Acetaminophen 325 Mg Tablet) 650 mg PO Q6H PRN PRN Reason: Headache/Pain Mild Scale (1-3) Last Admin: 05/05/22 14:09 Dose: 650 mg Al Hydroxide/Mg Hydroxide (Magnesium Hydrox/Alum Hydrox 30 Ml Oral.Susp) 30 ml PO Q6H PRN PRN Reason: Heartburn/Nausea Last Admin: 05/06/22 10:30 Dose: 30 ml Atenolol (Atenolol 100 Mg Tablet) 100 mg PO DAILY MAHENDRA; Protocol Last Admin: 05/06/22 09:00 Dose: 100 mg Bacitracin (Bacitracin Oint 14 Gm Tube) 1 appl TOPICAL DAILY MAHENDRA; Protocol Last Admin: 05/06/22 09:03 Dose: Not Given Benztropine Mesylate (Benztropine Mesylate 1 Mg Tablet) 1 mg PO TID PRN PRN Reason: Extrapyramidal Effects Last Admin: 04/27/22 16:31 Dose: 1 mg Calcium Carbonate (Calcium Carbonate 750 Mg Tab.Chew) 750 mg PO Q6H PRN PRN Reason: Heartburn Last Admin: 05/01/22 14:50 Dose: 750 mg Chlorpromazine HCl (Chlorpromazine Hcl 100 Mg Tablet) 100 mg PO TID PRN PRN Reason: Anxiety Last Admin: 05/06/22 09:38 Dose: 100 mg Clozapine (Clozapine 25 Mg Tablet) 50 mg PO DAILY [facility] Last Admin: 05/06/22 08:59 Dose: 50 mg Clozapine (Clozapine 100 Mg Tablet) 100 mg PO DAILY [facility] Last Admin: 05/06/22 09:00 Dose: 100 mg Clozapine (Clozapine 100 Mg Tablet) 100 mg PO BEDTIME [facility] Last Admin: 05/05/22 19:55 Dose: 100 mg Clozapine (Clozapine 25 Mg Tablet) 50 mg PO BEDTIME [facility] Last Admin: 05/05/22 19:55 Dose: 50 mg Doxycycline Hyclate (Doxycycline Hyclate 100 Mg Tablet) 100 mg PO Q12H [facility] Last Admin: 05/06/22 09:00 Dose: 100 mg Fluticasone Propionate (Fluticasone Propionate Nasal 16 Gm [place]) 1 spray NOSTRIL-B DAILY [facility] Last Admin: 05/06/22 08:58 Dose: 1 spray Guaifenesin/Dextromethorphan (Guaifenesin Dm 600/30 1 Tab Tab.Er.12h) 1 tab PO BID [facility] Last Admin: 05/06/22 08:59 Dose: 1 tab Haloperidol Lactate (Haloperidol Lactate 5 Mg/Ml Vial) 5 mg IM BID PRN PRN Reason: Refusal of Clozaril Hydroxyzine HCl (Hydroxyzine Hcl 25 Mg Tablet) 25 mg PO Q6H PRN PRN Reason: Anxiety Last Admin: 05/06/22 03:52 Dose: 25 mg [place] Carbonate ([place] Carbonate Er 300 Mg Tablet.Er) 600 mg PO DAILY [facility] Last Admin: 05/06/22 08:59 Dose: 600 mg [place] Carbonate ([place] Carbonate 300 Mg Tablet) 1,050 mg PO BEDTIME [facility] Last Admin: 05/05/22 19:54 Dose: 1,050 mg Loperamide HCl (Loperamide Hcl 2 Mg Capsule) 2 mg PO Q4H PRN PRN Reason: Loose Stool Magnesium Hydroxide (Milk Of Magnesia 30 Ml Oral.Susp) 30 ml PO DAILY PRN PRN Reason: Constipation Multi-Ingred Cream/Lotion/Oil/Oint (Mineral Oil/Petrolatum,White 106 Gm Tube) 1 appl TOPICAL BID [facility]HENDRA; Protocol Last Admin: 05/06/22 08:58 Dose: 1 appl Multi-Ingred Medicated Throat [place] (Throat [place], Medicated 20 Ml Bottle) 1 spray MUCOUS MEM Q2H PRN PRN Reason: throat pain Last Admin: 05/06/22 08:58 Dose: 1 spray Multivitamins/Vitamin C (Multivitamin Tablet) 1 tab PO DAILY [facility] Last Admin: 05/06/22 08:59 Dose: 1 tab Omeprazole (Omeprazole 20 Mg Capsule.Dr) 20 mg PO BID@0630,1630 [facility] Last Admin: 05/06/22 08:59 Dose: 20 mg Paliperidone Palmitate (Paliperidone Palmitate 234 Mg/1.5 Ml Syringe) 234 mg IM Q28D [facility] Last Admin: 04/25/22 17:12 Dose: 234 mg Sodium Chloride (Sodium Chloride 0.65 % Nasal 44 Ml Sprbtl) 1 spray NOSTRIL-B Q1H PRN PRN Reason: dry nose Last Admin: 05/04/22 15:06 Dose: 1 spray Trazodone HCl (Trazodone Hcl 50 Mg Tablet) 50 mg PO BEDTIME PRN PRN Reason: Insomnia Last Admin: 05/03/22 21:48 Dose: 50 mg Allergies Allergies Allergy/AdvReac Type Severity Reaction Status Date / Time No Known Allergies Allergy Unverified 05/17/20 19:19 [No Known Allergies*] Assessment & Plan Assessment & Plan (1) Schizophrenia, chronic condition: Status: Acute Code(s): F20.9 - Schizophrenia, unspecified Plan 05/02 continue current medications. 05/03 continues with paranoia towards OP providers, no med adjustments, working with SW on safe discharge 05/04 continue current medications 05/05 continue current medications 05/06 continue current medications. I spent minutes with the patient and/or on the patient floor today, greater than?50% of which was spent counseling/coordinating care. Reason for contiued inpatient stay Substantial Risk for: inability to function
[2022-05-06] MEDS: Acetaminophen 325 MG TABLET 650 MG PO (16:25)
[2022-05-06 20:27] VITALS: BP 143/88; PULSE 98; TEMP 36.7; O2SAT 98
[2022-05-06] MEDS: Lithium Carbonate 300 MG TABLET 1050 MG PO (20:37)
[2022-05-06] MEDS: traZODone HCL 50 MG TABLET PO (20:38)
[2022-05-06] MEDS: Benztropine Mesylate 1 MG TABLET PO (20:38)
[2022-05-07] MEDS: chlorproMAZINE HCl 100 MG TABLET PO ×3 (03:40→22:47)
[2022-05-07] MEDS: hydrOXYzine HCL 25 MG TABLET PO ×2 (03:40→20:01)
[2022-05-07] MEDS: Benztropine Mesylate 1 MG TABLET PO ×2 (03:40→22:47)
[2022-05-07 04:42] LABS: Clozapine (Clozaril) 265 mcg/L; Norclozapine 140 mcg/L (25-400)
[2022-05-07] MEDS: Mineral Oil/Petrolatum,White 106 GM Tube 1 APPL TOPICAL (08:41)
[2022-05-07] MEDS: Fluticasone Propionate Nasal 16 GM SPRAY 1 SPRAY NOSTRIL-B (08:44)
[2022-05-07] MEDS: cloZAPine 100 MG TABLET PO ×2 (08:45→20:01)
[2022-05-07] MEDS: guaiFENesin DM 600/30 1 TAB TAB.ER.12H PO ×2 (08:45→20:01)
[2022-05-07] MEDS: cloZAPine 25 MG TABLET 50 MG PO ×2 (08:45→20:00)
[2022-05-07] MEDS: Lithium Carbonate ER 300 MG TABLET.ER 600 MG PO (08:45)
[2022-05-07] MEDS: atenoloL 100 MG TABLET PO (08:46)
[2022-05-07] MEDS: Multivitamin TABLET 1 TAB PO (08:46)
[2022-05-07] MEDS: Omeprazole 20 MG CAPSULE.DR PO ×2 (08:46→16:39)
[2022-05-07 09:00] VITALS: BP 129/68; PULSE 82; RESP 16; TEMP 36.4; O2SAT 96
[2022-05-07] MEDS: Magnesium Hydrox/Alum Hydrox 30 ML ORAL.SUSP PO (12:03)
[2022-05-07] MEDS: LORazepam 1 MG TABLET PO ×2 (13:50→22:47)
[2022-05-07] MEDS: Acetaminophen 325 MG TABLET 650 MG PO (13:50)
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
[2022-05-07] MEDS: Calcium Carbonate 750 MG TAB.CHEW PO (15:31)
[2022-05-07] MEDS: traZODone HCL 50 MG TABLET PO (20:01)
[2022-05-07] MEDS: Lithium Carbonate 300 MG TABLET 1050 MG PO (20:01)
[2022-05-07] MEDS: Sodium Chloride 0.65 % Nasal 44 ML SPRBTL 1 SPRAY NOSTRIL-B (20:06)
[2022-05-07 20:08] VITALS: BP 152/73; PULSE 88; TEMP 36.8; O2SAT 99
[2022-05-08 07:00] VITALS: BMI 32.4
[2022-05-08 09:03] LABS: Neut%MD 63.5 %; Neutrophils Absolute Auto 5.5 x10*3/uL (2.0-8.3); WBCANC 8.7 X10*3/uL
[2022-05-08 09:20] VITALS: BP 128/83; PULSE 107; RESP 18; TEMP 36.6; O2SAT 94
[2022-05-08] MEDS: Multivitamin TABLET 1 TAB PO (09:29)
[2022-05-08] MEDS: guaiFENesin DM 600/30 1 TAB TAB.ER.12H PO ×2 (09:30→20:16)
[2022-05-08] MEDS: Lithium Carbonate ER 300 MG TABLET.ER 600 MG PO (09:30)
[2022-05-08] MEDS: cloZAPine 100 MG TABLET PO ×2 (09:31→20:16)
[2022-05-08] MEDS: Omeprazole 20 MG CAPSULE.DR PO ×2 (09:31→16:30)
[2022-05-08] MEDS: cloZAPine 25 MG TABLET 50 MG PO (09:31)
[2022-05-08] MEDS: Fluticasone Propionate Nasal 16 GM SPRAY 1 SPRAY NOSTRIL-B (09:32)
[2022-05-08] MEDS: atenoloL 100 MG TABLET PO (09:32)
[2022-05-08] MEDS: Sodium Chloride 0.65 % Nasal 44 ML SPRBTL 1 SPRAY NOSTRIL-B ×2 (10:15→22:09)
[2022-05-08] MEDS: hydrOXYzine HCL 25 MG TABLET PO ×2 (11:59→23:14)
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
[2022-05-08] MEDS: Acetaminophen 325 MG TABLET 650 MG PO (16:05)
[2022-05-08] MEDS: Magnesium Hydrox/Alum Hydrox 30 ML ORAL.SUSP PO (17:35)
[2022-05-08 20:15] VITALS: BP 132/94; PULSE 105; RESP 18; TEMP 36.2; O2SAT 96
[2022-05-08] MEDS: cloZAPine 25 MG TABLET 62.5 MG PO (20:16)
[2022-05-08] MEDS: Lithium Carbonate 300 MG TABLET 1050 MG PO (20:17)
[2022-05-08] MEDS: chlorproMAZINE HCl 25 MG TABLET 50 MG PO (23:14)
[2022-05-08] MEDS: traZODone HCL 50 MG TABLET PO (23:14)
[2022-05-09] MEDS: Magnesium Hydrox/Alum Hydrox 30 ML ORAL.SUSP PO ×2 (00:37→18:28)
[2022-05-09] MEDS: LORazepam 0.5 MG TABLET PO ×2 (01:42→13:07)
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
[2022-05-09] MEDS: Lithium Carbonate ER 300 MG TABLET.ER 600 MG PO (11:42)
[2022-05-09] MEDS: Multivitamin TABLET 1 TAB PO (11:44)
[2022-05-09] MEDS: atenoloL 100 MG TABLET PO (11:44)
[2022-05-09] MEDS: guaiFENesin DM 600/30 1 TAB TAB.ER.12H PO ×2 (11:44→20:39)
[2022-05-09] MEDS: cloZAPine 25 MG TABLET 50 MG PO (11:44)
[2022-05-09 11:45] VITALS: BP 142/90; PULSE 100; RESP 16; TEMP 36.6; O2SAT 96
[2022-05-09] MEDS: cloZAPine 100 MG TABLET PO ×2 (11:45→20:38)
[2022-05-09] MEDS: chlorproMAZINE HCl 25 MG TABLET 50 MG PO ×2 (13:07→21:14)
[2022-05-09] MEDS: Omeprazole 20 MG CAPSULE.DR PO (18:11)
[2022-05-09 20:15] VITALS: BP 119/75; PULSE 97; RESP 18; TEMP 36.6; O2SAT 96
[2022-05-09] MEDS: cloZAPine 25 MG TABLET 62.5 MG PO (20:38)
[2022-05-09] MEDS: traZODone HCL 50 MG TABLET PO (20:38)
[2022-05-09] MEDS: Lithium Carbonate 300 MG TABLET 1050 MG PO (20:39)
[2022-05-09] MEDS: hydrOXYzine HCL 25 MG TABLET PO (20:39)
[2022-05-10 09:20] VITALS: BP 130/71; PULSE 93; RESP 18; TEMP 36.4; O2SAT 95
[2022-05-10] MEDS: Lithium Carbonate ER 300 MG TABLET.ER 600 MG PO (09:33)
[2022-05-10] MEDS: atenoloL 100 MG TABLET PO (09:33)
[2022-05-10] MEDS: cloZAPine 25 MG TABLET 50 MG PO (09:33)
[2022-05-10] MEDS: cloZAPine 100 MG TABLET PO ×2 (09:33→20:08)
[2022-05-10] MEDS: guaiFENesin DM 600/30 1 TAB TAB.ER.12H PO ×2 (09:33→20:07)
[2022-05-10] MEDS: Omeprazole 20 MG CAPSULE.DR PO ×2 (09:34→16:47)
[2022-05-10] MEDS: Multivitamin TABLET 1 TAB PO (09:34)
[2022-05-10] MEDS: Fluticasone Propionate Nasal 16 GM SPRAY 1 SPRAY NOSTRIL-B (10:29)
[2022-05-10 20:00] VITALS: BP 135/95; PULSE 106; RESP 18; TEMP 36.7; O2SAT 94
[2022-05-10] MEDS: hydrOXYzine HCL 25 MG TABLET PO (20:07)
[2022-05-10] MEDS: chlorproMAZINE HCl 25 MG TABLET 50 MG PO (20:07)
[2022-05-10] MEDS: Lithium Carbonate 300 MG TABLET 1050 MG PO (20:08)
[2022-05-10] MEDS: cloZAPine 25 MG TABLET 62.5 MG PO (20:08)
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
[2022-05-11 08:38] VITALS: BP 164/91; PULSE 96; RESP 18; TEMP 36.4; O2SAT 96
[2022-05-11] MEDS: atenoloL 100 MG TABLET PO (08:39)
[2022-05-11] MEDS: Omeprazole 20 MG CAPSULE.DR PO ×2 (08:39→16:05)
[2022-05-11] MEDS: cloZAPine 25 MG TABLET 50 MG PO (08:39)
[2022-05-11] MEDS: Lithium Carbonate ER 300 MG TABLET.ER 600 MG PO (08:39)
[2022-05-11] MEDS: cloZAPine 100 MG TABLET PO ×2 (08:39→19:57)
[2022-05-11] MEDS: guaiFENesin DM 600/30 1 TAB TAB.ER.12H PO ×2 (08:40→19:52)
[2022-05-11] MEDS: Fluticasone Propionate Nasal 16 GM SPRAY 1 SPRAY NOSTRIL-B (08:40)
[2022-05-11] MEDS: Multivitamin TABLET 1 TAB PO (08:40)
[2022-05-11] MEDS: Acetaminophen 325 MG TABLET 650 MG PO (14:39)
[2022-05-11 18:35] VITALS: BP 125/74; PULSE 85; RESP 16; TEMP 36.6; O2SAT 97
[2022-05-11] MEDS: Lithium Carbonate 300 MG TABLET 1050 MG PO (19:52)
[2022-05-11] MEDS: cloZAPine 25 MG TABLET 62.5 MG PO (19:57)
[2022-05-11] MEDS: Mineral Oil/Petrolatum,White 106 GM Tube 1 APPL TOPICAL (20:00)
[2022-05-11] MEDS: traZODone HCL 50 MG TABLET PO (21:06)
--- NOTE | 2022-05-11 22:20 | PC.NURSE ---
Pt A&O, INAD, pleasant and cooperative, responds appropriately, medication adherent. Denies safety concerns, SI/HI/AH/VH, pain; reports anxiety 2/10 and depression 2/10. Pt observed in milieu interacting with peers and watching television. Medication adherent. PRN sleep medication requested and administered with good effect.
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
[2022-05-12 08:32] VITALS: BP 155/86; PULSE 106; RESP 16; TEMP 36.6; O2SAT 99
[2022-05-12] MEDS: cloZAPine 25 MG TABLET 50 MG PO (08:34)
[2022-05-12] MEDS: Multivitamin TABLET 1 TAB PO (08:34)
[2022-05-12] MEDS: guaiFENesin DM 600/30 1 TAB TAB.ER.12H PO ×2 (08:35→19:58)
[2022-05-12] MEDS: Omeprazole 20 MG CAPSULE.DR PO ×2 (08:35→16:40)
[2022-05-12] MEDS: atenoloL 100 MG TABLET PO (08:35)
[2022-05-12] MEDS: Lithium Carbonate ER 300 MG TABLET.ER 600 MG PO (08:35)
[2022-05-12] MEDS: cloZAPine 100 MG TABLET PO ×2 (08:36→19:59)
[2022-05-12] MEDS: Fluticasone Propionate Nasal 16 GM SPRAY 1 SPRAY NOSTRIL-B (08:38)
[2022-05-12] MEDS: Acetaminophen 325 MG TABLET 650 MG PO ×2 (09:27→18:15)
[2022-05-12] MEDS: hydrOXYzine HCL 25 MG TABLET PO (14:04)
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
[2022-05-12] MEDS: Magnesium Hydrox/Alum Hydrox 30 ML ORAL.SUSP PO (17:35)
[2022-05-12 19:45] VITALS: BP 137/91; PULSE 102; RESP 18; TEMP 36.2; O2SAT 97
[2022-05-12] MEDS: LORazepam 0.5 MG TABLET PO (19:58)
[2022-05-12] MEDS: cloZAPine 25 MG TABLET 62.5 MG PO (19:58)
[2022-05-12] MEDS: chlorproMAZINE HCl 25 MG TABLET 50 MG PO (19:58)
[2022-05-12] MEDS: Lithium Carbonate 300 MG TABLET 1050 MG PO (19:59)
[2022-05-12] MEDS: traZODone HCL 50 MG TABLET PO (21:26)
[2022-05-13 08:53] VITALS: BP 134/85; PULSE 110; RESP 18; TEMP 36.7; O2SAT 96
[2022-05-13] MEDS: cloZAPine 25 MG TABLET 50 MG PO (08:54)
[2022-05-13] MEDS: Fluticasone Propionate Nasal 16 GM SPRAY 1 SPRAY NOSTRIL-B (08:54)
[2022-05-13] MEDS: Multivitamin TABLET 1 TAB PO (08:55)
[2022-05-13] MEDS: cloZAPine 100 MG TABLET PO ×2 (08:55→20:08)
[2022-05-13] MEDS: Lithium Carbonate ER 300 MG TABLET.ER 600 MG PO (08:55)
[2022-05-13] MEDS: guaiFENesin DM 600/30 1 TAB TAB.ER.12H PO ×2 (08:56→20:11)
[2022-05-13] MEDS: Omeprazole 20 MG CAPSULE.DR PO ×2 (08:56→17:32)
[2022-05-13] MEDS: atenoloL 100 MG TABLET PO (08:56)
[2022-05-13] MEDS: chlorproMAZINE HCl 25 MG TABLET 50 MG PO ×2 (10:12→18:53)
[2022-05-13] MEDS: Magnesium Hydrox/Alum Hydrox 30 ML ORAL.SUSP PO (13:13)
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
[2022-05-13 20:00] VITALS: BP 142/85; PULSE 97; RESP 18; TEMP 36.6; O2SAT 94
[2022-05-13] MEDS: cloZAPine 25 MG TABLET 62.5 MG PO (20:06)
[2022-05-13] MEDS: Lithium Carbonate 300 MG TABLET 1050 MG PO (20:07)
[2022-05-13] MEDS: hydrOXYzine HCL 25 MG TABLET PO (20:07)
[2022-05-13] MEDS: traZODone HCL 50 MG TABLET PO (20:08)
[2022-05-13] MEDS: LORazepam 0.5 MG TABLET PO (20:08)
[2022-05-13] MEDS: Acetaminophen 325 MG TABLET 650 MG PO (20:11)
[2022-05-13] MEDS: Mineral Oil/Petrolatum,White 106 GM Tube 1 APPL TOPICAL (20:11)
[2022-05-13] MEDS: Sodium Chloride 0.65 % Nasal 44 ML SPRBTL 1 SPRAY NOSTRIL-B (20:11)
[2022-05-14] MEDS: Mineral Oil/Petrolatum,White 106 GM Tube 1 APPL TOPICAL (08:56)
[2022-05-14] MEDS: Omeprazole 20 MG CAPSULE.DR PO ×2 (09:01→16:34)
[2022-05-14] MEDS: atenoloL 100 MG TABLET PO (09:01)
[2022-05-14] MEDS: Multivitamin TABLET 1 TAB PO (09:01)
[2022-05-14] MEDS: Fluticasone Propionate Nasal 16 GM SPRAY 1 SPRAY NOSTRIL-B (09:01)
[2022-05-14] MEDS: Lithium Carbonate ER 300 MG TABLET.ER 600 MG PO (09:01)
[2022-05-14] MEDS: cloZAPine 25 MG TABLET 50 MG PO (09:01)
[2022-05-14] MEDS: cloZAPine 100 MG TABLET PO ×2 (09:02→20:11)
[2022-05-14] MEDS: guaiFENesin DM 600/30 1 TAB TAB.ER.12H PO ×2 (09:02→20:12)
[2022-05-14 09:17] VITALS: BP 117/72; PULSE 95; RESP 16; TEMP 36.8; O2SAT 95
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
[2022-05-14] MEDS: Magnesium Hydrox/Alum Hydrox 30 ML ORAL.SUSP PO (13:29)
[2022-05-14 17:35] VITALS: BP 142/97; PULSE 90; TEMP 36.6; O2SAT 96
[2022-05-14 20:05] VITALS: BP 138/82; PULSE 87; TEMP 36.6; O2SAT 96
[2022-05-14] MEDS: Lithium Carbonate 300 MG TABLET 1050 MG PO (20:10)
[2022-05-14] MEDS: cloZAPine 25 MG TABLET 62.5 MG PO (20:11)
[2022-05-14] MEDS: LORazepam 0.5 MG TABLET PO (20:12)
[2022-05-14] MEDS: chlorproMAZINE HCl 25 MG TABLET 50 MG PO (20:12)
[2022-05-14] MEDS: Benztropine Mesylate 1 MG TABLET PO (20:12)
[2022-05-14] MEDS: Sodium Chloride 0.65 % Nasal 44 ML SPRBTL 1 SPRAY NOSTRIL-B (20:18)
[2022-05-15 08:40] LABS: MANUAL DIFF FLAG NO
[2022-05-15 08:59] LABS: Basophils Percent Auto 0.1 % (0-2); Eosinophils Percent Auto 0.1 % (0-4); Hematocrit 38.7 % (42.0-52.0); Hemoglobin 13.3 g/dl (14.0-18.0); Imm Gran Abs Auto 0.04 X10*3/uL (0.00-0.03); Imm Gran Pct Auto 0.5 % (0.0-0.4); Lymphocytes Absolute Auto 2.6 X10*3/uL (1.2-4.9); Lymphocytes Percent Auto 33.4 % (20-40); Mean Corpuscular HGB Conc 34.4 g/dl (31.0-36.0); Mean Corpuscular Hemoglobin 28.4 pg (27.0-33.0); Mean Corpuscular Volume 82.7 fL (80.0-98.0); Mean Platelet Volume 9.7 fL (9.4-12.4); Monocytes Absolute Auto 0.7 X10*3/uL (0.1-1.2); Monocytes Percent Auto 8.7 % (2-11); Neutrophils Absolute Auto 4.4 x10*3/uL (2.0-8.3); Neutrophils Percent Auto 57.2 % (45-73); Platelet Count 245 X10*3/uL (160-400); Red Blood Count 4.68 X10*6/uL (4.60-5.80); Red Cell Distribution Width 13.7 % (11.0-16.0); White Blood Count 7.7 X10*3/uL (4.8-10.8)
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
[2022-05-15 09:14] LABS: Lithium 1.12 mmol/L (0.60-1.20)
[2022-05-15 09:17] LABS: Alanine Aminotransferase 75 U/L (0-40); Albumin Level 3.9 g/dL (3.5-5.0); Alkaline Phosphatase 123 U/L (39-117); Anion Gap 14 (12-20); Aspartate Amino Transferase 48 U/L (5-37); Bilirubin Direct 0.2 mg/dL (0.0-0.5); Bilirubin Total 0.5 mg/dL (0.0-1.0); Blood Urea Nitrogen 10 mg/dL (9-16); Calcium 9.6 mg/dL (8.4-10.2); Carbon Dioxide 26 mmol/L (22-29); Chloride 102 mmol/L (96-108); Creatinine Clr Calc Pharmacy 169.1; Estimated Glomerular Filt Rate > 60; Glucose Random 103 mg/dL (60-115); Potassium 4.3 mmol/L (3.3-5.1); Sodium 138 mmol/L (135-145); Total Protein 6.6 g/dL (6.5-8.0)
[2022-05-15 10:30] VITALS: BP 137/92; PULSE 117; RESP 18; TEMP 36.6; O2SAT 98
[2022-05-15] MEDS: Lithium Carbonate ER 300 MG TABLET.ER 600 MG PO (10:42)
[2022-05-15] MEDS: guaiFENesin DM 600/30 1 TAB TAB.ER.12H PO (10:42)
[2022-05-15] MEDS: Multivitamin TABLET 1 TAB PO (10:43)
[2022-05-15] MEDS: Omeprazole 20 MG CAPSULE.DR PO (10:43)
[2022-05-15] MEDS: cloZAPine 100 MG TABLET PO (10:43)
[2022-05-15] MEDS: atenoloL 100 MG TABLET PO (10:43)
[2022-05-15] MEDS: cloZAPine 25 MG TABLET 50 MG PO (10:44)
[2022-05-15] MEDS: chlorproMAZINE HCl 25 MG TABLET 50 MG PO (11:33)
[2022-05-19 14:52] LABS: Clozapine (Clozaril) 260 mcg/L; Norclozapine 121 mcg/L (25-400)
== END 2022-05-15 12:58 | disposition home or self-care (01) | DRG 750 ==
LOC: HO.ED 11:28 → HO.PADLT16 03-18 15:17
PROVIDERS: Registered Nurse; Social Worker; Admitting Provider Psychiatry & Neurology Psychiatry; Emergency Provider Student in an Organized Health Care Education/Training Program; PCP Family Medicine; Visit Provider Psychiatry & Neurology Psychiatry
DX: F20.9 Schizophrenia, unspecified (principal); Z59.02 Unsheltered homelessness; F17.210 Nicotine dependence, cigarettes, uncomplicated; Z20.822 Contact with and (suspected) exposure to COVID-19; Z71.6 Tobacco abuse counseling; Z91.14 Patient's other noncompliance with medication regimen; Z79.51 Long term (current) use of inhaled steroids; Z79.899 Other long term (current) drug therapy
CPT/HCPCS: 0241U; 36415; 71045; 80048; 80053; 80061; 80076; 80143; 80159; 80178; 80179; 80307; 82077; 82607; 83036; 84443; 85025; 85048; 87635; 93005; 99285; J2426; Q0163

== ENCOUNTER 2022-05-30 12:32 | Outpatient (REF) | payer MEDICAID, SELFPAY ==
[2022-05-30 13:25] LABS: Neut%MD 58.3 %; Neutrophils Absolute Auto 4.2 x10*3/uL (2.0-8.3); WBCANC 7.2 X10*3/uL; White Blood Count 7.2 X10*3/uL (4.8-10.8)
[2022-06-04 23:26] LABS: Clozapine (Clozaril) 188 mcg/L; Norclozapine 96 mcg/L (25-400)
== END 2022-05-30 12:33 | disposition home or self-care (01) ==
LOC: HO.LAB 12:32
PROVIDERS: Visit Provider Psychiatry & Neurology Psychiatry
DX: Z79.899 Other long term (current) drug therapy (principal)
CPT/HCPCS: 36415; 80159; 85048

== ENCOUNTER 2022-06-12 10:38 | Inpatient (IN) | payer OTHER, SELFPAY ==
--- NOTE | 2022-06-12 | ECG_ITS ---
Test Reason : MED CLEARANCE Blood Pressure : / mmHG Vent. Rate : 060 BPM Atrial Rate : 060 BPM P-R Int : 184 ms QRS Dur : 094 ms QT Int : 414 ms P-R-T Axes : 041 070 050 degrees QTc Int : 414 ms Normal sinus rhythm Normal ECG When compared with ECG of 18-APR-2022 10:36, Vent. rate has decreased BY 47 BPM Referred By: Tessa Melton Electronically Signed By:KORINA PABON MD
[2022-06-12 10:58] VITALS: BP 127/84; PULSE 78; RESP 18; TEMP 36.9; O2SAT 100; BMI 28.1
--- OUTSIDE RECORDS SUMMARY | 2022-06-12 11:14 | XMS_ITS | Continuity of Care Document ---
:1995 Author Organization [facility] Address [address] [place] [address]- Care Team Providers Name Role Phone Mandy DUKE, Noé Grover Primary Care Physician Encounter [facility] Date(s): 05/30/21 - 06/29/21 [facility] [address] [place] [address]- Allergies, Adverse Reactions, Alerts Substance Reaction Severity Status NKA Active Immunizations Given and Recorded Vaccine Date Status Refusal Reason influenza virus vaccine, inactivated 10/02/20 Given tetanus/diphtheria/pertussis, acel(Tdap) 09/29/11 Given Not Given Vaccine Date Status Refusal Reason pneumococcal 23-valent vaccine 10/02/20 Not Given P arent Or Guardian Refuses Influenza Virus Vaccine (oldterm) 10/28/19 Not Given Parent Or Guardian Refuses Medications atenolol 25 mg oral tablet 25 mg, 1, tablet, By Mouth, Daily, # 30 tablet, Refills 5, Tot. Refills 5, Maintenance, 12/27/20 9:19:00 EDT, Route to Pharmacy Electronically, [facility], Partial fill upon patient request if the prescription is for a schedul... Start Date: 12/27/20 Stop Date: 06/25/21 Status: Orderedbenztropine 1 mg oral tablet 1 mg, 1, tablet, By Mouth, 2 times a day, # 60 tablet, Refills 0, Tot. Refills 0, Maintenance, 10/22/20 9:58:00 EST, Route to Pharmacy Electronically, [facility], Partial fill upon patient request if the prescription is for a... Start Date: 10/22/20 Stop Date: 11/21/20 Status: OrderedcloNIDine 0.1 mg oral tablet 0.1 mg, 1, tablet, By Mouth, Daily, # 30 tablet, Refills 0, Tot. Refills 0, Maintenance, 10/22/20 9:59:00 EST, Route to Pharmacy Electronically, [facility], Partial fill upon patient request if the prescription is for a schedu... Start Date: 10/22/20 Stop Date: 11/21/20 Status: OrderedDaily Multiple Vitamins oral tablet 1 tablet, By Mouth, Daily, # 90 tablet, 3 Refills, Maintenance, 01/16/21 10:49:00 EDT, [facility], 1 tablet By Mouth Daily, 180, cm, 10/22/20 8:16:00 EST, Height, 81.1, kg, 10/01/20 23:21:00 EST, Dry Weight Start Date: 01/16/21 Status: OrderedHaldol Decanoate decanoate 100 mg/ml injectable solution = 150 mg, Intramuscular, Once, Next dose on 11/01/2020, dispense on the dya of administration., # 1 each, 0 Refills, Soft Stop, 10/22/20 10:04:00 EST, Solution, [facility], Partial fill upon patient request if the prescription i... Start Date: 10/22/20 Status: Orderedhaloperidol 10 mg oral tablet 10 mg, 1, tablet, By Mouth, Daily at bedtime, # 30 tablet, Refills 0, Tot. Refills 0, Maintenance, 10/22/20 10:01:00 EST, Route to Pharmacy Electronically, [facility], Partial fill upon patient request if the prescription is f... Start Date: 10/22/20 Stop Date: 11/21/20 Status: OrderedKlonoPIN 1 mg oral tablet 1 tablet = 1 mg, By Mouth, 3 times a day, PRN Anxiety, # 42 tablet, 1 Refills, Maintenance, :59:00 EST, Tablet, [facility], Partial fill upon patient request if the prescription is for a schedule II opioid drug., 180... Start Date: 10/22/20 Stop Date: 11/19/20 Status: Orderedlamotrigine 100 mg oral tablet 250 mg, 2.5, tablet, By Mouth, Daily, # 75 tablet, Refills 0, Tot. Refills 0, Maintenance, 10/22/20 9:59:00 EST, Route to Pharmacy Electronically, [facility], Partial fill uponpatient request if the prescription is for a sche... Start Date: 10/22/20 Stop Date: 11/21/20 Status: Orderedlithium 600 mg oral capsule = 600 mg, By Mouth, 2 times a day, # 60 capsule, 0 Refills, Maintenance, 10/22/20 9:59:00 EST, Capsule, [facility], Partial fill upon patient request if the prescription is fora schedule II opioid drug., 180, cm, 10/22/20 8:1... Start Date: 10/22/20 Stop Date: 11/21/20 Status: OrderedQUEtiapine 100 mg oral tablet 100 mg, 1, tablet, By Mouth, 4 times a day, PRN, # 56 tablet, Refills 1, Tot. Refills 1, Maintenance, Agitation, 10/22/20 9:59:00 EST, Route to Pharmacy Electronically, [facility], Partial fill upon patient request if the pres... Start Date: 10/22/20 Stop Date: 11/19/20 Status: Ordered Problem List Condition Effective Dates Status Health Status Informant Bipolar disorder(Confirmed) Active Depression(Confirmed) Active Essential hypertension(Confirmed) Active Ingestion of toxic Active substance(Confirmed) PTSD (post-traumatic stress Active disorder)(Confirmed) Schizophrenia(Confirmed) Active H/O Substance use disorder(Confirmed) Active Suicidal ideation(Confirmed) Active Tobacco use(Confirmed) Active Social History Social History Type Response Smoking Status 10 or more cigarettes (1/2 p ack or more)/day in last 30 days; Other: Reports smoking 2 ppd; entered on: 06/14/21 Sex
--- OUTSIDE RECORDS SUMMARY | 2022-06-12 11:14 | XMS_ITS | Continuity of Care Document ---
:1995 Author Organization [facility] Adult Address [address] [place] [address]- Care Team Providers Name Role Phone Mandy DUKE, Noé Grover Primary Care Physician Encounter [facility] [place] Date(s): 10/28/19 - 11/04/19 [facility] Adult [address] [place] [address]- [facility] Encounter Diagnosis Schizophrenia (Discharge Diagnosis) - 10/28/19 Essential hypertension (Discharge Diagnosis) - 10/28/19 Attending Physician: Not on Staff, Attending MD Allergies, Adverse Reactions, Alerts Substance Reaction Severity Status NKA Active Immunizations Given and Recorded Vaccine Date Status Refusal Reason tetanus/diphtheria/pertussis, acel(Tdap) 09/29/11 Given Not Given Vaccine Date Status Refusal Reason Influenza Virus Vaccine (oldterm) 10/28/19 Not Given Parent Or Guardian Refuses Medications atenolol 25 mg oral tablet 25 mg, 1, tablet, By Mouth, Daily, # 30 tablet, Refills 5, Tot. Refills 5, Maintenance, 04/25/19 10:48:37 EDT, Route to Pharmacy Electronically, NCPDP_ID- [id number], [facility] Start Date: 04/25/19 Status: Orderedbenztropine 1 mg oral tablet 1 mg, By Mouth, 2 times a day, to prevent side effects from haldol, # 60 tablet, Refills 1, Tot. Refills 1, Maintenance, 09/30/18 13:22:19 EST, Route to Pharmacy Electronically, NCPDP_[id number], [facility] Start Date: 09/30/18 Status: OrderedHaldol Decanoate 100 mg IM Haldol Decanoate 100 mg IM, See Instructions, # 1 vials, Refills 1, Tot. Refills 1, Maintenance, Haldol Decanoate Intramuscular - Next dose due on 10/03/2018 ( Bi- weekly ), 09/30/18 13:40:04 EST, Compound Start Date: 09/30/18 Status: Orderedhaloperidol 10 mg oral tablet 10 mg, By Mouth, 2 times a day, for agitation/psychosis, # 60 tablet, Refills 1, Tot. Refills 1, Maintenance, 09/30/18 13:25:45 EST, Route to Pharmacy Electronically, NCPDP_[id number], [facility] Start Date: 09/30/18 Status: Orderedhydrocortisone 1% topical lotion See Instructions, Apply topically 3 times a day to affected area ( for dermatitis/itching ), # 60 mL, 1 Refills, Maintenance, 09/30/18 13:41:49 EST, Lotion, Apply topically 3 times a day to affected area ( for dermatitis/itching ) Start Date: 09/30/18 Status: OrderedSEROquel 400 mg oral tablet 1 tablet = 400 mg, By Mouth, Daily at bedtime, 0 Refills, Maintenance, 12/30/18 11:08:30 EDT Start Date: 12/30/18 Status: OrderedSEROquel XR 200 mg oral tablet, extended release 200 mg, 1, tablet, By Mouth, Daily, # 30 tablet, Refills 0, Maintenance, 04/25/19 10:24:36 EDT Start Date: 04/25/19 Status: OrderedtraZODone 50 mg oral tablet 50 mg, 1, tablet, By Mouth, Daily at bedtime, # 30 tablet, Refills 0, Maintenance, 04/25/19 10:25:06EDT Start Date: 04/25/19 Status: Ordered Problem List Condition Effective Dates Status Health Status Informant Bipolar disorder(Confirmed) Active Depression(Confirmed) Active Essential hypertension(Confirmed) Active Ingestion of toxic Active substance(Confirmed) PTSD (post-traumatic stress Active disorder)(Confirmed) Schizophrenia(Confirmed) Active Suicidal ideation(Confirmed) Active Diagnosis Diagnosis Type Effective Dates Health Clinical Infor formerly [facility] Status Service Schizophrenia Discharge 10/28/19 Diagnosis Essential Discharge 10/28/19 hypertension Diagnosis Vital Signs Most recent to oldest [Reference Range]: 1 Height 177 cm (10/28/19 8:53 AM) Weight 74.8 kg (10/28/19 8:53 AM) Oxygen Saturation [94-100 %] 98 % (10/28/19 8:53 AM) Pulse Rate [55-90 bpm] 107 bpm *H* (10/28/19 8:53 AM) Body Mass Index [18.5-24.99] 23.88 (10/28/19 8:53 AM) Blood Pressure [90-138/55-84 mm Hg] 122/62 mm Hg (10/28/19 8:53 AM) Temperature [96.8-100.4 DegF] 99.0 DegF (10/28/19 8:53 AM) Mode of Delivery (Oxygen) Room air (10/28/19 8:53 AM) Blood pressure sites Arm, right (10/28/19 8:53 AM) Temperature Route Oral (10/28/19 8:53 AM) Weight Obtained Via Standing scale (10/28/19 8:53 AM) Social History Social History Type Response Smoking Status Current every day smoker; Ot her: 1 ppd; entered on: 09/24/16 Sex
--- OUTSIDE RECORDS SUMMARY | 2022-06-12 11:14 | XMS_ITS | Continuity of Care Document ---
:1995 Author Organization [facility] Address [address] [place] [address]- Care Team Providers Name Role Phone Noé Galvan MD Primary Care Physician [place] [facility] [place] - 10/29/[address] [address]- [phone] Attending Physician: Herrera Gonzales MD Admitting Physician: Rabia Crow MD Referring Physician: Herrera Gonzales MD Allergies, Adverse Reactions, Alerts Substance Reaction [...] 9:58:00 EST, Route to Pharmacy Electronically, [facility]-, Partial fill upon patient request if the prescription is for a schedul... Start Date: 10/22/20 Stop Date: 11/21/20 Status: Orderedbenztropine 1 mg oral tablet 1 mg, 1, tablet, By Mouth, 2 times a day, # 60 tablet, Refills 0, Tot. Refills 0, Maintenance, 10/22/20 9:58:00 EST, Route to Pharmacy Electronically, [facility], Partial fill upon patient request if the prescription is for a... Start Date: 10/22/20 Stop Date: 11/21/20 Status: OrderedcloNIDine 0.1 mg oral tablet 0.1 mg, 1, tablet, By Mouth, Daily, # 30 tablet, Refills 0, Tot. Refills 0, Maintenance, 10/22/20 9:59:00 EST, Route to Pharmacy Electronically, [facility], Partial fill upon patient request if the prescription is for a schedu... Start Date: 10/22/20 Stop Date: 11/21/20 Status: OrderedHaldol Decanoate decanoate 100 mg/ml injectable solution = 150 mg, Intramuscular, Once, Next dose on 11/01/2020, dispense on the dya of administration., # 1 each, 0 Refills, Soft Stop, 10/22/20 10:04:00 EST, Solution, [facility], Partial fill upon patient request if the prescription i... Start Date: 10/22/20 Status: Orderedhaloperidol 10 mg oral tablet 10 mg, 1, tablet, By Mouth, Daily at bedtime, # 30 tablet, Refills 0, Tot. Refills 0, Maintenance, 10/22/20 10:01:00 EST, Route to Pharmacy Electronically, [facility], Partial fill upon patient request if the prescription is f... Start Date: 10/22/20 Stop Date: 11/21/20 Status: OrderedKlonoPIN 1 mg oral tablet 1 tablet = 1 mg, By Mouth, 3 times a day, PRN Anxiety, # 42 tablet, 1 Refills, Maintenance, 219:59:00 EST, Tablet, [facility], Partial fill upon patient request if the prescription is for a schedule II opioid drug., 180... Start Date: 10/22/20 Stop Date: 11/19/20 Status: Orderedlamotrigine 100 mg oral tablet 250 mg, 2.5, tablet, By Mouth, Daily, # 75 tablet, Refills 0, Tot. Refills 0, Maintenance, 10/22/20 9:59:00 EST, Route to Pharmacy Electronically, [facility], Partial fill uponpatient request if the prescription is for a sche... Start Date: 10/22/20 Stop Date: 11/21/20 Status: Orderedlithium 600 mg oral capsule = 600 mg, By Mouth, 2 times a day, # 60 capsule, 0 Refills, Maintenance, 10/22/20 9:59:00 EST, Capsule, [facility]-, Partial fill upon patient request if the prescription is fora schedule II opioid drug., 180, cm, 10/22/20 8:1... Start Date: 10/22/20 Stop Date: 11/21/20 Status: Orderedmultivitamin Multiple Vitamins oral tablet 1 tablet, By Mouth, Daily, # 30 tablet, 0 Refills, Maintenance, 10/22/20 9:58:00 EST, Tablet, [facility]-, Partial fill upon patient request if the prescription is for a schedule II opioid drug., 1 tablet By Mouth Daily,x30 day... Start Date: 10/22/20 Stop Date: 11/21/20 Status: OrderedQUEtiapine 100 mg oral tablet 100 mg, 1, tablet, By Mouth, 4 times a day, PRN, # 56 tablet, Refills 1, Tot. Refills 1, Maintenance, Agitation, 10/22/20 9:59:00 EST, Route to Pharmacy Electronically, [facility], Partial fill upon patient request if the [...]
--- OUTSIDE RECORDS SUMMARY | 2022-06-12 11:14 | XMS_ITS | Continuity of Care Document ---
:1995 Author Organization [facility] Adult Address [address] [place] [address]- Care Team Providers Name Role Phone Mandy DUKE, Noé Grover Primary Care Physician Encounter [facility] [place] Date(s): 08/21/20 - 09/20/20 [facility] Adult [address] [place] [address]- Attending Physician: AdmtrGary Admitting Physician: AdmtrGary Referring Physician: Admtr, Ar8 Allergies, Adverse Reactions, Alerts Substance Reaction Severity Status NKA Active Immunizations Given and Recorded Vaccine Date Status Refusal Reason tetanus/diphtheria/pertussis, acel(Tdap) 09/29/11 Given Not Given Vaccine Date Status Refusal Reason Influenza Virus Vaccine (oldterm) 10/28/19 Not Given Parent Or Guardian Refuses Medications atenolol 25 mg oral tablet 25 mg, 1, tablet, By Mouth, Daily, # 30 tablet, Refills 11, Tot. Refills 11, Maintenance, 06/26/20 16:09:00 EDT, Route to Pharmacy Electronically, [facility]-, 177, cm, 06/19/2010:31:00 EDT, Height, 73.3, kg, 09/26/18 3:01:00... Start Date: 06/26/20 Status: Orderedbenztropine 1 mg oral tablet 1 mg, By Mouth, 2 times a day, to prevent side effects from haldol, # 60 tablet, Refills 1, Tot. Refills 1, Maintenance, 09/30/18 13:22:19 EST, Route to Pharmacy Electronically, NCPDP_[id number], [facility] Start Date: 09/30/18 Status: OrderedHaldol Decanoate [...] 09/30/18 13:25:45 EST, Route to Pharmacy Electronically, NCPDP_[id number], [facility] Start Date: 09/30/18 Status: Orderedhydrocortisone 1% topical lotion See Instructions, Apply topically 3 times a day to affected area ( for dermatitis/itching ), # 60 mL, 1 Refills, Maintenance, 09/30/18 13:41:49 EST, Lotion, Apply topically 3 times a day to affected area ( for dermatitis/itching ) Start Date: 09/30/18 Status: Orderedmultivitamin Multiple Vitamins oral tablet 1 tablet, By Mouth, Daily, # 30 tablet, 11 Refills, Maintenance, 11/15/19 10:51:00 EDT, [facility]-, 30, 1 tablet By Mouth Daily, 177, cm, 10/28/19 8:53:00 EST, Height, 73.3, kg, 09/26/18 3:01:00 EST, Dry Weight Start Date: 11/15/19 Status: OrderedSEROquel 400 mg oral tablet 1 [...]
--- OUTSIDE RECORDS SUMMARY | 2022-06-12 11:14 | XMS_ITS | Continuity of Care Document ---
:1995 Author Organization [facility] Adult Address [address] [place] [address]- Care Team Providers Name Role Phone Mandy DUKE, Noé Grover Primary Care Physician Encounter [facility] [place] Date(s): 05/23/21 - 06/22/21 [facility] Adult [address] [place] [address]- Allergies, Adverse Reactions, Alerts Substance Reaction Severity [...] 12/27/20 9:19:00 EDT, Route to Pharmacy Electronically, [facility], Partial fill upon patient request if the prescription is for a schedul... Start Date: 12/27/20 Stop Date: 06/25/21 Status: Orderedbenztropine 1 mg oral tablet 1 mg, 1, tablet, By Mouth, 2 times a day, # 60 tablet, Refills 0, Tot. Refills 0, Maintenance, 10/22/20 9:58:00 EST, Route to Pharmacy Electronically, [facility], Partial fill upon patient request if the prescription is for a... Start Date: 10/22/20 Stop Date: 11/21/20 Status: OrderedcloNIDine 0.1 mg oral tablet 0.1 mg, 1, tablet, By Mouth, Daily, # 30 tablet, Refills 0, Tot. Refills 0, Maintenance, 10/22/20 9:59:00 EST, Route to Pharmacy Electronically, [facility], Partial fill upon patient request if the prescription is for a schedu... Start Date: 10/22/20 Stop Date: 11/21/20 Status: OrderedDaily Multiple Vitamins oral tablet 1 tablet, By Mouth, Daily, # 90 tablet, 3 Refills, Maintenance, 01/16/21 10:49:00 EDT, [facility], 1 tablet By Mouth Daily, 180, cm, 10/22/20 8:16:00 EST, Height, 81.1, kg, 10/01/20 23:21:00 EST, Dry Weight Start Date: 01/16/21 Status: OrderedHaldol Decanoate decanoate 100 mg/ml injectable solution = 150 mg, Intramuscular, Once, Next dose on 11/01/2020, dispense on the dya of administration., # 1 each, 0 Refills, Soft Stop, 10/22/20 10:04:00 EST, Solution, [facility], Partial fill upon patient request if the prescription i... Start Date: 10/22/20 Status: Orderedhaloperidol 10 mg oral tablet 10 mg, 1, tablet, By Mouth, Daily at bedtime, # 30 tablet, Refills 0, Tot. Refills 0, Maintenance, 10/22/20 10:01:00 EST, Route to Pharmacy Electronically, [facility], Partial fill upon patient request if the prescription is f... Start Date: 10/22/20 Stop Date: 11/21/20 Status: OrderedKlonoPIN 1 mg oral tablet 1 tablet = 1 mg, By Mouth, 3 times a day, PRN Anxiety, # 42 tablet, 1 Refills, Maintenance, :59:00 EST, Tablet, [facility], Partial fill upon patient request if the prescription is for a schedule II opioid drug., 180... Start Date: 10/22/20 Stop Date: 11/19/20 Status: Orderedlamotrigine 100 mg oral tablet 250 mg, 2.5, tablet, By Mouth, Daily, # 75 tablet, Refills 0, Tot. Refills 0, Maintenance, 10/22/20 9:59:00 EST, Route to Pharmacy Electronically, [facility], Partial fill uponpatient request if the prescription is for a sche... Start Date: 10/22/20 Stop Date: 11/21/20 Status: Orderedlithium 600 mg oral capsule = 600 mg, By Mouth, 2 times a day, # 60 capsule, 0 Refills, Maintenance, 10/22/20 9:59:00 EST, Capsule, [facility], Partial fill upon patient request if the prescription is fora schedule II opioid drug., 180, cm, 10/22/20 8:1... Start Date: 10/22/20 Stop Date: 11/21/20 Status: OrderedQUEtiapine 100 mg oral tablet 100 mg, 1, tablet, By Mouth, 4 times a day, PRN, # 56 tablet, Refills 1, Tot. Refills 1, Maintenance, Agitation, 10/22/20 9:59:00 EST, Route to Pharmacy Electronically, [facility], Partial fill upon patient request if the [...]
--- OUTSIDE RECORDS SUMMARY | 2022-06-12 11:14 | XMS_ITS | Continuity of Care Document ---
:[address] [facility] Address [address] [place] [address]- Care Team Providers Name Role Phone Mandy DUKE, Noé Grover Primary Care Physician Encounter [facility] [place] Date(s): 10/08/21 - 11/07/21 [facility] [address], [place] [address] Attending Physician: Gary Vincent Admitting Physician: AdmGary meyrs Referring Physician: AdmtrGary Allergies, Adverse Reactions, Alerts No Known Allergies Immunizations Given and Recorded Vaccine Date Status [...] tablet, Refills 0, Tot. Refills 0, Maintenance, 07/30/21 8:36:00 EST, Route to Pharmacy Electronically, [facility], Partial fill upon patient request if the prescription is for a schedul... Start Date: 07/30/21 Status: Orderedbenztropine 1 mg oral tablet 1 mg, 1, tablet, By Mouth, 2 times a day, # 60 tablet, Refills 0, Tot. Refills 0, Maintenance, 07/30/21 8:36:00 EST, Route to Pharmacy Electronically, [facility], Partial fill upon patient request if the prescription is for a... Start Date: 07/30/21 Status: Orderedclozapine 50 mg oral tablet 3 tablet = 150 mg, By Mouth, 2 times a day, Take three tablets in the morning and three tablets at bedtime, # 180 tablet, 0 Refills, Maintenance, 07/30/21 8:33:00 EST, Tablet, [facility], Partial fill upon patient request if t... Start Date: 07/30/21 Status: OrderedHaldol Decanoate decanoate 100 mg/ml injectable solution = 200 mg, Intramuscular, Once, Next dose on 07/31/2021, dispense on the day of administration., # 2 mL, 0 Refills, Soft Stop, 07/30/21 8:32:00 EST, Solution, [facility]-, Partial fill upon patient request if the prescription is... Start Date: 07/30/21 Status: Orderedhaloperidol 5 mg oral tablet 5 mg, 1, tablet, By Mouth, Daily at bedtime, # 30 tablet, Refills 0, Tot. Refills 0, Maintenance, 07/30/21 8:32:00 EST, Route to Pharmacy Electronically, [facility], Partial fill upon patient request if the prescription is for... Start Date: 07/30/21 Status: Orderedlithium 600 mg oral capsule = 1,200 mg, By Mouth, Daily at bedtime, # 60 capsule, 0 Refills, Maintenance, 07/30/21 8:32:00 EST, Capsule, [facility], Partial fill upon patient request if the prescription is for a schedule II opioid drug., 178, cm, ... Start Date: 07/30/21 Status: OrderedProtonix 20 mg oral delayed release tablet = 40 mg, By Mouth, Daily, # 30 tablet, 0 Refills, Maintenance, 07/30/21 8:33:00 EST, EC Tablet, 178,cm, 07/30/21 0:58:00 EST, Height, 85, kg, 07/02/21 12:43:00 EDT, Dry Weight Start Date: 07/30/21 Status: Ordered Problem List Condition Effective Dates [...]
--- OUTSIDE RECORDS SUMMARY | 2022-06-12 11:14 | XMS_ITS | Continuity of Care Document ---
:1995 Author Organization [facility] Address [address] [place] [address]- Care Team Providers Name Role Phone Not on Staff, PCP Primary Care Physician Unavailable Encounter [facility] [place] Date(s): 12/24/20 - 01/23/21 [facility] [address] [place] [address]- Allergies, Adverse Reactions, Alerts Substance Reaction Severity [...] 12/27/20 9:19:00 EDT, Route to Pharmacy Electronically, [facility]-, Partial fill upon patient request if the prescription is for a schedul... Start Date: 12/27/20 Stop Date: 06/25/21 Status: Orderedbenztropine 1 mg oral tablet 1 mg, 1, tablet, By Mouth, 2 times a day, # 60 tablet, Refills 0, Tot. Refills 0, Maintenance, 10/22/20 9:58:00 EST, Route to Pharmacy Electronically, [facility], Partial fill upon patient request if the prescription is for a... Start Date: 10/22/20 Stop Date: 11/21/20 Status: OrderedcloNIDine 0.1 mg oral tablet 0.1 mg, 1, tablet, By Mouth, Daily, # 30 tablet, Refills 0, Tot. Refills 0, Maintenance, 10/22/20 9:59:00 EST, Route to Pharmacy Electronically, [facility], Partial fill upon patient request if the prescription is for a schedu... Start Date: 10/22/20 Stop Date: 11/21/20 Status: OrderedDaily Multiple Vitamins oral tablet 1 tablet, By Mouth, Daily, # 90 tablet, 3 Refills, Maintenance, 01/16/21 10:49:00 EDT, [facility], 1 tablet By Mouth Daily, 180, cm, 10/22/20 8:16:00 EST, Height, 81.1, kg, 10/01/20 23:21:00 EST, Dry Weight Start Date: 01/16/21 Status: OrderedHaldol Decanoate decanoate 100 mg/ml injectable solution = 150 mg, Intramuscular, Once, Next dose on 11/01/2020, dispense on the dya of administration., # 1 each, 0 Refills, Soft Stop, 10/22/20 10:04:00 EST, Solution, [facility], Partial fill upon patient request if the prescription i... Start Date: 10/22/20 Status: Orderedhaloperidol 10 mg oral tablet 10 mg, 1, tablet, By Mouth, Daily at bedtime, # 30 tablet, Refills 0, Tot. Refills 0, Maintenance, 10/22/20 10:01:00 EST, Route to Pharmacy Electronically, [facility], Partial fill upon patient request if the prescription is f... Start Date: 10/22/20 Stop Date: 11/21/20 Status: OrderedKlonoPIN 1 mg oral tablet 1 tablet = 1 mg, By Mouth, 3 times a day, PRN Anxiety, # 42 tablet, 1 Refills, Maintenance, :59:00 EST, Tablet, [facility], Partial fill upon patient request if the prescription is for a schedule II opioid drug., 180... Start Date: 10/22/20 Stop Date: 11/19/20 Status: Orderedlamotrigine 100 mg oral tablet 250 mg, 2.5, tablet, By Mouth, Daily, # 75 tablet, Refills 0, Tot. Refills 0, Maintenance, 10/22/20 9:59:00 EST, Route to Pharmacy Electronically, [facility], Partial fill uponpatient request if the prescription is for a sche... Start Date: 10/22/20 Stop Date: 11/21/20 Status: Orderedlithium 600 mg oral capsule = 600 mg, By Mouth, 2 times a day, # 60 capsule, 0 Refills, Maintenance, 10/22/20 9:59:00 EST, Capsule, [facility], Partial fill upon patient request if the prescription is fora schedule II opioid drug., 180, cm, 10/22/20 8:1... Start Date: 10/22/20 Stop Date: 11/21/20 Status: OrderedQUEtiapine 100 mg oral tablet 100 mg, 1, tablet, By Mouth, 4 times a day, PRN, # 56 tablet, Refills 1, Tot. Refills 1, Maintenance, Agitation, 10/22/20 9:59:00 EST, Route to Pharmacy Electronically, [facility], Partial fill upon patient request if [...]
--- OUTSIDE RECORDS SUMMARY | 2022-06-12 11:14 | XMS_ITS | Continuity of Care Document ---
:1995 Author Organization [facility] Address [address] [place] [id number]- Care Team Providers Name Role Phone Noé Galvan MD Primary Care Physician Encounter [facility] Date(s): 01/14/22 - 02/13/[address] [address] Attending Physician: Huber Wilkins MD Referring Physician: Huber Wilkins MD Allergies, Adverse Reactions, Alerts Substance Reaction Severity Status Benadryl, Topical1 Active 1hives Immunizations Given and Recorded Vaccine Date Status Refusal Reason SARS-CoV-2 (COVID-19) mRNA-1273 vaccine 08/05/21 Recorded SARS-CoV-2 (COVID-19) Ad26 vaccine 12/03/20 Recorded influenza virus vaccine, inactivated 10/02/20 Given tetanus/diphtheria/pertussis, acel(Tdap) 09/29/11 Given Not Given Vaccine Date Status Refusal Reason pneumococcal 23-valent vaccine 10/02/20 Not Given P arent Or Guardian Refuses Influenza Virus Vaccine (oldterm) 10/28/19 Not Given Parent Or Guardian Refuses Medications Abilify 10 mg oral tablet 10 mg, 1, tablet, By Mouth, Daily, # 30 tablet, Refills 0, Tot. Refills 0, Maintenance, 01/15/22 9:10:00 EDT, Route to Pharmacy Electronically, [facility]-, Partial fill upon patient request if the prescription is for a schedul... Start Date: 01/15/22 Status: Orderedacetaminophen 325 mg oral tablet 650 mg, 2, tablet, By Mouth, Every 4 hours, PRN, Temperature Greater than 100.5, # 50 tablet, Refills 11, Tot. Refills 11, Acute 01/16/23 4:25:00 EDT, Pain , Mild, 01/16/22 4:22:00 EDT, Route to Pharmacy Electronically, [facility]-2... Start Date: 01/16/22 Stop Date: 01/16/23 Status: Orderedatenolol 50 mg oral tablet 50 mg, 1, tablet, By Mouth, Daily, # 30 tablet, Refills 11, Tot. Refills 11, Maintenance, 01/16/22 4:23:00 EDT, Route to Pharmacy Electronically, [facility], Partial fill upon patient request if the prescription is for a sched... Start Date: 01/16/22 Status: Orderedcalcium carbonate 500 mg (200 mg elemental calcium) oral tablet, chewable 500 mg, 1, tablet, Chew, Every 4 hours, PRN, # 12 tablet, Refills 11, Tot. Refills 11, Maintenance, Dyspepsia, 01/16/22 4:23:00 EDT, Route to Pharmacy Electronically, [facility], Partial fill upon patient request if the prescr... Start Date: 01/16/22 Status: Orderedclotrimazole 1% topical cream See Instructions, Topically 2 times a day prn fungal rash, # 30 Gm, 2 Refills, Acute 01/16/23 4:26:00 EDT, 01/16/22 4:23:00 EDT, Cream, [facility], Partial fill upon patient request if the prescription is for a schedule II opi... Start Date: 01/16/22 Stop Date: 01/16/23 Status: Orderedclozapine 100 mg oral tablet 1 tablet = 100 mg, By Mouth, Daily in AM, # 30 tablet, 0 Refills, Maintenance, 01/15/22 9:11:00 EDT,Tablet, [facility], Partial fill upon patient request if the prescription is for a schedule II opioid drug., 177.8, cm, 01/14... Start Date: 01/15/22 Status: Orderedclozapine 50 mg oral tablet 2.5 tablet = 125 mg, By Mouth, Daily at bedtime, # 75 tablet, 0 Refills, Maintenance, 01/15/22 9:11:00 EDT, Tablet, [facility], Partial fill upon patient request if the prescription is for a schedule II opioid drug., 177.8, cm... Start Date: 01/15/22 Status: Ordereddextromethorphan-guaifenesin 10 mg-100 mg/10 mL oral liquid 5 mL, By Mouth, 3 times a day, PRN Cough and Congestion, # 118 mL, 5 Refills, Acute 06/19/22 14:20:00 EDT, 01/17/22 14:19:00 EDT, [facility]-, Partial fill upon patient request if the prescription is for a schedule II opioid dr... Start Date: 01/17/22 Stop Date: 06/19/22 Status: Ordereddextromethorphan-guaifenesin 5 mg-100 mg/5 mL oral liquid 5 mL, By Mouth, 3 times a day, PRN Cough, # 118 mL, 5 Refills, Acute 01/16/23 4:26:00 EDT, 01/16/22 4:23:00 EDT, Liquid, [facility]-, Partial fill upon patient request if the prescription is for a schedule II opioid drug., 5 mL... Start Date: 01/16/22 Stop Date: 01/16/23 Status: Orderedlamotrigine 200 mg oral tablet 1 tablet = 200 mg, By Mouth, Daily, # 30 tablet, 0 Refills, Maintenance, 01/15/22 9:11:00 EDT, Tablet, [facility]-, Partial fill upon patient request if the prescription is for a schedule II opioid drug., 177.8, cm, 01/14/22 13... Start Date: 01/15/22 Status: OrderedMaalox Plus Liquid 30 mL, By Mouth, Every 4 hours, PRN Dyspepsia, 0 Refills, Maintenance, 01/14/22 10:11:00 EDT, Suspension, Partial fill upon patient request if the prescription is for a schedule II opioid drug. Start Date: 01/14/22 Status: OrderedMilk of Magnesia 8% oral suspension 15 mL = 1.2 Gm, By Mouth, 2 times a day, PRN as needed for constipation, # 360 mL, 5 Refills, Acute 01/16/23 4:28:00 EDT, 01/16/22 4:27:00 EDT, [facility]-, Partial fill upon patient request if the prescription is for a schedul... Start Date: 01/16/22 Stop Date: 01/16/23 Status: Orderednicotine 4 mg oral transmucosal gum = 4 mg, Chew, Every hour, PRN Other, Nicotine Withdrawal Symptoms (NOT to exceed 24 pieces per day),0 Refills, Maintenance, 01/02/22 14:15:00 EDT, Gum, Partial fill upon patient request if the prescription is for a schedule II opioid drug. Start Date: 01/02/22 Status: OrderedProtonix 20 mg oral delayed release tablet = 40 mg, By Mouth, Daily, # 30 tablet, 11 Refills, Maintenance, 01/16/22 4:23:00 EDT, EC Tablet, 177.8, cm, 01/14/22 13:45:00 EDT, Height, 95, kg, 01/02/22 20:50:00 EDT, Dry Weight Start Date: 01/16/22 Status: OrderedtraZODone 50 mg oral tablet 50 mg, 1, tablet, By Mouth, Daily at bedtime, PRN, # 30 tablet, Refills 0, Tot. Refills 0, Maintenance, Insomnia, 01/15/22 9:11:00 EDT, Route to Pharmacy Electronically, [facility]-, Partial fill upon patient request if the pre... Start Date: 01/15/22 Stop Date: 03/16/22 Status: Ordered Problem List Condition Effective Dates Status Health Status Informant Bipolar disorder(Confirmed) Active COVID-19(Confirmed)1 01/02/22 Active Depression(Confirmed) Active Essential hypertension(Confirmed) Active Ingestion of toxic Active substance(Confirmed) Obese class I(Confirmed) Active PTSD (post-traumatic stress Active disorder)(Confirmed) Schizophrenia(Confirmed) Active H/O Substance use disorder(Confirmed) Active Suicidal ideation(Confirmed) Active Tobacco use(Confirmed) Active 1Problem added by Discern Expert Social History Social History Type Response Smoking Status 10 or more cigarettes (1/2 p ack or more)/day in last 30 days; Interested in cessation: Yes; Patient wants NRT during admission Yes entered on: 12/25/21 Sex
--- OUTSIDE RECORDS SUMMARY | 2022-06-12 11:14 | XMS_ITS | Continuity of Care Document ---
:1995 Author Organization [facility] Address [address] [place] [address]- Care Team Providers Name Role Phone Noé Galvan MD Primary Care Physician Encounter [facility] [place] Date(s): 06/20/21 - 07/20/21 [facility] [address] [place] [address]- Attending Physician: AdmGary myers Admitting Physician: Admtr, Gary Referring Physician: Admtr, Ar8 Allergies, Adverse Reactions, [...] 12/27/20 9:19:00 EDT, Route to Pharmacy Electronically, [facility]-, Partial fill upon patient request if the prescription is for a schedul... Start Date: 12/27/20 Stop Date: 06/25/21 Status: Orderedbenztropine 1 mg oral tablet 1 mg, 1, tablet, By Mouth, 2 times a day, # 60 tablet, Refills 0, Tot. Refills 0, Maintenance, 10/22/20 9:58:00 EST, Route to Pharmacy Electronically, [facility], Partial fill upon patient request if the prescription is for a... Start Date: 10/22/20 Stop Date: 11/21/20 Status: OrderedcloNIDine 0.1 mg oral tablet 0.1 mg, 1, tablet, By Mouth, Daily, # 30 tablet, Refills 0, Tot. Refills 0, Maintenance, 10/22/20 9:59:00 EST, Route to Pharmacy Electronically, [facility], Partial fill upon patient request if the prescription is for a schedu... Start Date: 10/22/20 Stop Date: 11/21/20 Status: OrderedDaily Multiple Vitamins oral tablet 1 tablet, By Mouth, Daily, # 90 tablet, 3 Refills, Maintenance, 01/16/21 10:49:00 EDT, [facility], 1 tablet By Mouth Daily, 180, cm, 10/22/20 8:16:00 EST, Height, 81.1, kg, 10/01/20 23:21:00 EST, Dry Weight Start Date: 01/16/21 Status: OrderedHaldol Decanoate decanoate 100 mg/ml injectable solution = 150 mg, Intramuscular, Once, Next dose on 11/01/2020, dispense on the dya of administration., # 1 each, 0 Refills, Soft Stop, 10/22/20 10:04:00 EST, Solution, [facility], Partial fill upon patient request if the prescription i... Start Date: 10/22/20 Status: Orderedhaloperidol 10 mg oral tablet 10 mg, 1, tablet, By Mouth, Daily at bedtime, # 30 tablet, Refills 0, Tot. Refills 0, Maintenance, 10/22/20 10:01:00 EST, Route to Pharmacy Electronically, [facility], Partial fill upon patient request if the prescription is f... Start Date: 10/22/20 Stop Date: 11/21/20 Status: OrderedKlonoPIN 1 mg oral tablet 1 tablet = 1 mg, By Mouth, 3 times a day, PRN Anxiety, # 42 tablet, 1 Refills, Maintenance, :59:00 EST, Tablet, [facility], Partial fill upon patient request if the prescription is for a schedule II opioid drug., 180... Start Date: 10/22/20 Stop Date: 11/19/20 Status: Orderedlamotrigine 100 mg oral tablet 250 mg, 2.5, tablet, By Mouth, Daily, # 75 tablet, Refills 0, Tot. Refills 0, Maintenance, 10/22/20 9:59:00 EST, Route to Pharmacy Electronically, [facility]-, Partial fill uponpatient request if the prescription is for a sche... Start Date: 10/22/20 Stop Date: 11/21/20 Status: Orderedlithium 600 mg oral capsule = 600 mg, By Mouth, 2 times a day, # 60 capsule, 0 Refills, Maintenance, 10/22/20 9:59:00 EST, Capsule, [facility]-, Partial fill upon patient request if the prescription is fora schedule II opioid drug., 180, cm, 10/22/20 8:1... Start Date: 10/22/20 Stop Date: 11/21/20 Status: OrderedQUEtiapine 100 mg oral tablet 100 mg, 1, tablet, By Mouth, 4 times a day, PRN, # 56 tablet, Refills 1, Tot. Refills 1, Maintenance, Agitation, 10/22/20 9:59:00 EST, Route to Pharmacy Electronically, [facility], Partial fill upon patient request if [...]
--- OUTSIDE RECORDS SUMMARY | 2022-06-12 11:14 | XMS_ITS | Continuity of Care Document ---
:1995 Author Organization [facility] Address [address] [place] [address]- Care Team Providers Name Role Phone oNé Galvan MD Primary Care Physician Encounter [facility] Date(s): 03/29/20 - 04/28/20 [facility] [address] [place] [address]- [facility] Attending Physician: Gary Vincent Admitting Physician: Gary Vincent Referring Physician: Admtr, Ar8 Allergies, Adverse Reactions, [...] 10:48:37 EDT, Route to Pharmacy Electronically, NCPDP_ID- [id number], [facility] Start Date: 04/25/19 Status: Orderedbenztropine 1 mg oral tablet 1 mg, By Mouth, 2 times a day, to prevent side effects from haldol, # 60 tablet, Refills 1, Tot. Refills 1, Maintenance, 09/30/18 13:22:19 EST, Route to Pharmacy Electronically, NCPDP_ID-[id number], [facility] Start Date: 09/30/18 Status: OrderedHaldol Decanoate [...] 09/30/18 13:25:45 EST, Route to Pharmacy Electronically, NCPDP_ID-[id number], [facility] Start Date: 09/30/18 Status: Orderedhydrocortisone 1% topical [...] tablet, 11 Refills, Maintenance, 11/15/19 10:51:00 EDT, [facility], 30, 1 tablet By Mouth Daily, 177, [...] Active disorder)(Confirmed) Schizophrenia(Confirmed) Active Suicidal ideation(Confirmed) Active Social History Social History Type Response Smoking Status Current every day smoker; Ot her: 1 ppd; entered on: 09/24/16 Sex
--- OUTSIDE RECORDS SUMMARY | 2022-06-12 11:14 | XMS_ITS | Continuity of Care Document ---
:1995 Author Organization [facility] Address [address] [place] [address]- Care Team Providers Name Role Phone Mandy DUKE, Noé Grover Primary Care Physician Encounter [facility] Date(s): 05/27/21 - 06/26/21 [facility] [address] [place] [address]- Allergies, Adverse Reactions, Alerts Substance Reaction Severity [...] 12/27/20 9:19:00 EDT, Route to Pharmacy Electronically, [facility], Partial fill upon patient request if the prescription is for a schedul... Start Date: 12/27/20 Stop Date: 06/25/21 Status: Orderedbenztropine 1 mg oral tablet 1 mg, 1, tablet, By Mouth, 2 times a day, # 60 tablet, Refills 0, Tot. Refills 0, Maintenance, 10/22/20 9:58:00 EST, Route to Pharmacy Electronically, [facility], Partial fill upon patient request if the prescription is for a... Start Date: 10/22/20 Stop Date: 11/21/20 Status: OrderedcloNIDine 0.1 mg oral tablet 0.1 mg, 1, tablet, By Mouth, Daily, # 30 tablet, Refills 0, Tot. Refills 0, Maintenance, 10/22/20 9:59:00 EST, Route to Pharmacy Electronically, [facility], Partial fill upon patient request if the prescription is for a schedu... Start Date: 10/22/20 Stop Date: 11/21/20 Status: OrderedDaily Multiple Vitamins oral tablet 1 tablet, By Mouth, Daily, # 90 tablet, 3 Refills, Maintenance, 01/16/21 10:49:00 EDT, [facility], 1 tablet By Mouth Daily, 180, cm, 10/22/20 8:16:00 EST, Height, 81.1, kg, 10/01/20 23:21:00 EST, Dry Weight Start Date: 01/16/21 Status: OrderedHaldol Decanoate decanoate 100 mg/ml injectable solution = 150 mg, Intramuscular, Once, Next dose on 11/01/2020, dispense on the dya of administration., # 1 each, 0 Refills, Soft Stop, 10/22/20 10:04:00 EST, Solution, [facility], Partial fill upon patient request if the prescription i... Start Date: 10/22/20 Status: Orderedhaloperidol 10 mg oral tablet 10 mg, 1, tablet, By Mouth, Daily at bedtime, # 30 tablet, Refills 0, Tot. Refills 0, Maintenance, 10/22/20 10:01:00 EST, Route to Pharmacy Electronically, [facility], Partial fill upon patient request if the prescription is f... Start Date: 10/22/20 Stop Date: 11/21/20 Status: OrderedKlonoPIN 1 mg oral tablet 1 tablet = 1 mg, By Mouth, 3 times a day, PRN Anxiety, # 42 tablet, 1 Refills, Maintenance, :59:00 EST, Tablet, [facility], Partial fill upon patient request if the prescription is for a schedule II opioid drug., 180... Start Date: 10/22/20 Stop Date: 11/19/20 Status: Orderedlamotrigine 100 mg oral tablet 250 mg, 2.5, tablet, By Mouth, Daily, # 75 tablet, Refills 0, Tot. Refills 0, Maintenance, 10/22/20 9:59:00 EST, Route to Pharmacy Electronically, [facility], Partial fill uponpatient request if the prescription is for a sche... Start Date: 10/22/20 Stop Date: 11/21/20 Status: Orderedlithium 600 mg oral capsule = 600 mg, By Mouth, 2 times a day, # 60 capsule, 0 Refills, Maintenance, 10/22/20 9:59:00 EST, Capsule, [facility], Partial fill upon patient request if the prescription is fora schedule II opioid drug., 180, cm, 10/22/20 8:1... Start Date: 10/22/20 Stop Date: 11/21/20 Status: OrderedQUEtiapine 100 mg oral tablet 100 mg, 1, tablet, By Mouth, 4 times a day, PRN, # 56 tablet, Refills 1, Tot. Refills 1, Maintenance, Agitation, 10/22/20 9:59:00 EST, Route to Pharmacy Electronically, [facility], Partial fill upon patient request if [...]
--- OUTSIDE RECORDS SUMMARY | 2022-06-12 11:14 | XMS_ITS | Continuity of Care Document ---
:1995 Author Organization [facility] Address [address] [place] [address]- Care Team Providers Name Role Phone Noé Galvan MD Primary Care Physician Encounter [facility] Date(s): 11/01/19 - 02/29/20 [facility] [address] [place] [address]- [facility] Attending Physician: Noé Galvan MD Allergies, Adverse Reactions, Alerts Substance Reaction [...] 10:48:37 EDT, Route to Pharmacy Electronically, NCPDP_ID- [id number], [facility] Start Date: 04/25/19 Status: Orderedbenztropine 1 mg oral tablet 1 mg, By Mouth, 2 times a day, to prevent side effects from haldol, # 60 tablet, Refills 1, Tot. Refills 1, Maintenance, 09/30/18 13:22:19 EST, Route to Pharmacy Electronically, NCPDP_ID-[id number], [facility] Start Date: 09/30/18 Status: OrderedHaldol Decanoate [...] 09/30/18 13:25:45 EST, Route to Pharmacy Electronically, NCPDP_ID-[id number], [facility] Start Date: 09/30/18 Status: Orderedhydrocortisone 1% [...] tablet, 11 Refills, Maintenance, 11/15/19 10:51:00 EDT, [facility], 30, 1 tablet By Mouth Daily, [...]
--- OUTSIDE RECORDS SUMMARY | 2022-06-12 11:14 | XMS_ITS | Continuity of Care Document ---
:1995 Author Organization [facility] Adult Address [address] [place] [address]- Care Team Providers Name Role Phone Mandy DUKE, Noé Grover Primary Care Physician [place] [facility] [place] 08/01[place]21 - 08/31/21 [facility] [address] [place] [address]- Allergies, Adverse Reactions, Alerts Substance Reaction Severity [...] 07/30/21 8:36:00 EST, Route to Pharmacy Electronically, [facility], Partial fill upon patient request if the prescription is for a schedul... Start Date: 07/30/21 Status: Orderedbenztropine 1 mg oral tablet 1 mg, 1, tablet, By Mouth, 2 times a day, # 60 tablet, Refills 0, Tot. Refills 0, Maintenance, 07/30/21 8:36:00 EST, Route to Pharmacy Electronically, [facility], Partial fill upon patient request if the prescription is for a... Start Date: 07/30/21 Status: Orderedclozapine 50 mg oral tablet 3 tablet = 150 mg, By Mouth, 2 times a day, Take three tablets in the morning and three tablets at bedtime, # 180 tablet, 0 Refills, Maintenance, 07/30/21 8:33:00 EST, Tablet, [facility]-, Partial fill upon patient request if t... Start Date: 07/30/21 Status: OrderedHaldol Decanoate decanoate 100 mg/ml injectable solution = 200 mg, Intramuscular, Once, Next dose on 07/31/2021, dispense on the day of administration., # 2 mL, 0 Refills, Soft Stop, 07/30/21 8:32:00 EST, Solution, [facility]-, Partial fill upon patient request if the prescription is... Start Date: 07/30/21 Status: Orderedhaloperidol 5 mg oral tablet 5 mg, 1, tablet, By Mouth, Daily at bedtime, # 30 tablet, Refills 0, Tot. Refills 0, Maintenance, 07/30/21 8:32:00 EST, Route to Pharmacy Electronically, [facility], Partial fill upon patient request if the prescription is for... Start Date: 07/30/21 Status: Orderedlithium 600 mg oral capsule = 1,200 mg, By Mouth, Daily at bedtime, # 60 capsule, 0 Refills, Maintenance, 07/30/21 8:32:00 EST, Capsule, [facility], Partial fill upon patient request if the [...]
--- OUTSIDE RECORDS SUMMARY | 2022-06-12 11:14 | XMS_ITS | Continuity of Care Document ---
:1995 Author Organization [facility] Address [address] [place] [address]- Care Team Providers Name Role Phone Mandy DUKE, Noé Grover Primary Care Physician Encounter [facility] Date(s): 02/20/22 - 03/22/22 [facility] [address] [place] [address]- Allergies, Adverse Reactions, Alerts Substance Reaction Severity [...] 10 mg, 1, tablet, By Mouth, Daily in AM, # 7 tablet, Refills 0, Tot. Refills 0, Maintenance, 03/06/22 14:07:00 EDT, Route to Pharmacy Electronically, [facility], Partial fill upon patientrequest if the prescription is for a schedule II... Start Date: 03/06/22 Stop Date: 03/13/22 Status: OrderedAbilify 10 mg oral tablet 10 mg, 1, tablet, By Mouth, Daily, # 30 tablet, Refills 0, Tot. Refills 0, Maintenance, 01/15/22 9:10:00 EDT, Route to Pharmacy Electronically, [facility]-, Partial fill upon patient request if the prescription is for a schedul... Start Date: 01/15/22 Status: Orderedacetaminophen 325 mg oral tablet 650 mg, 2, tablet, By Mouth, Every 4 hours, PRN, Temperature Greater than 100.5, # 50 tablet, Refills 11, Tot. Refills 11, Acute 01/16/23 4:25:00 EDT, Pain , Mild, 01/16/22 4:22:00 EDT, Route to Pharmacy Electronically, [facility]... Start Date: 01/16/22 Stop Date: 01/16/23 Status: Orderedatenolol 50 mg oral tablet 50 mg, 1, tablet, By Mouth, Daily, # 30 tablet, Refills 11, Tot. Refills 11, Maintenance, 01/16/22 4:23:00 EDT, Route to Pharmacy Electronically, [facility], Partial fill upon patient request if the prescription is for a sched... Start Date: 01/16/22 Status: Orderedcalcium carbonate 500 mg (200 mg elemental calcium) oral tablet, chewable 500 mg, 1, tablet, Chew, Every 4 hours, PRN, # 12 tablet, Refills 11, Tot. Refills 11, Maintenance, Dyspepsia, 01/16/22 4:23:00 EDT, Route to Pharmacy Electronically, [facility], Partial fill upon patient request if the prescr... Start Date: 01/16/22 Status: Orderedclotrimazole 1% topical cream See Instructions, Topically 2 times a day prn fungal rash, # 30 Gm, 2 Refills, Acute 01/16/23 4:26:00 EDT, 01/16/22 4:23:00 EDT, Cream, [facility], Partial fill upon patient request if the prescription is for a schedule II opi... Start Date: 01/16/22 Stop Date: 01/16/23 Status: Orderedclozapine 100 mg oral tablet 1 tablet = 100 mg, By Mouth, Daily in AM, # 30 tablet, 0 Refills, Maintenance, 01/15/22 9:11:00 EDT,Tablet, [facility], Partial fill upon patient request if the prescription is for a schedule II opioid drug., 177.8, cm, 01/14... Start Date: 01/15/22 Status: Orderedclozapine 50 mg oral tablet 2.5 tablet = 125 mg, By Mouth, Daily at bedtime, # 75 tablet, 0 Refills, Maintenance, 01/15/22 9:11:00 EDT, Tablet, [facility]-, Partial fill upon patient request if the prescription is for a schedule II opioid drug., 177.8, cm... Start Date: 01/15/22 Status: OrderedDaily Leonel oral tablet 1 tablet, By Mouth, Daily, # 28 tablet, 0 Refills, [facility], 28, TAKE 1 TABLET BY MOUTH DAILY, 177.8, cm, 01/14/22 13:45:00 EDT, Height, 95, kg, 01/02/22 20:50:00 EDT, Dry Weight Start Date: 03/17/22 Status: Ordereddextromethorphan-guaifenesin 10 mg-100 mg/10 mL oral liquid 5 mL, By Mouth, 3 times a day, PRN Cough and Congestion, # 118 mL, 5 Refills, Acute 06/19/22 14:20:00 EDT, 01/17/22 14:19:00 EDT, [facility], Partial fill upon patient request if the prescription is for a schedule II opioid dr... Start Date: 01/17/22 Stop Date: 06/19/22 Status: Ordereddextromethorphan-guaifenesin 5 mg-100 mg/5 mL oral liquid 5 mL, By Mouth, 3 times a day, PRN Cough, # 118 mL, 5 Refills, Acute 01/16/23 4:26:00 EDT, 01/16/22 4:23:00 EDT, Liquid, [facility], Partial fill upon patient request if the prescription is for a schedule II opioid drug., 5 mL... Start Date: 01/16/22 Stop Date: 01/16/23 Status: Orderedlamotrigine 200 mg oral tablet 1 tablet = 200 mg, By Mouth, Daily, # 30 tablet, 0 Refills, Maintenance, 01/15/22 9:11:00 EDT, Tablet, [facility]-, Partial fill upon patient request [...] Acute 01/16/23 4:28:00 EDT, 01/16/22 4:27:00 EDT, [facility]-, Partial fill upon patient request [...] tablet, By Mouth, Daily at bedtime, # 7 tablet, Refills 0, Tot. Refills 0, Maintenance, 03/06/22 14:07:00 EDT, Route to Pharmacy Electronically, [facility], Partial fill upon patient request if the prescription is for a schedul... Start Date: 03/06/22 Stop Date: 03/13/22 Status: OrderedtraZODone 50 mg oral tablet 50 mg, 1, tablet, By Mouth, Daily at bedtime, PRN, # 30 tablet, Refills 0, Tot. Refills 0, Maintenance, Insomnia, 01/15/22 9:11:00 EDT, Route to Pharmacy Electronically, [facility], Partial fill upon patient request if the [...]
--- OUTSIDE RECORDS SUMMARY | 2022-06-12 11:14 | XMS_ITS | Continuity of Care Document ---
:1995 Author Organization [facility] Address [address] [place] [address]- Care Team Providers Name Role Phone Not on Staff, PCP Primary Care Physician Unavailable Encounter [facility] [place] Date(s): 01/21/21 - 01/23/21 [facility] [address] [place] [address]- Encounter Diagnosis Bipolar disorder (Final) - 01/21/21 Discharge Disposition: A-D/C Home Attending Physician: Magali Kimble DO Admitting Physician: Magali Kimble DO Referring Physician: Not on Staff, Referring MD Allergies, Adverse Reactions, Alerts Substance Reaction [...] 12/27/20 9:19:00 EDT, Route to Pharmacy Electronically, [facility]-, Partial fill upon patient request if the prescription is for a schedul... Start Date: 12/27/20 Stop Date: 06/25/21 Status: Orderedatenolol 25 mg oral tablet 25 mg, Tablet, By Mouth, 01/23/21 9:00:00 EDT Start Date: 01/23/21 Stop Date: 01/23/21 Status: Completedbenztropine 1 mg oral tablet 1 mg, 1, tablet, By Mouth, 2 times a day, # 60 tablet, Refills 0, Tot. Refills 0, Maintenance, 10/22/20 9:58:00 EST, Route to Pharmacy Electronically, [facility], Partial fill upon patient request if the prescription is for a... Start Date: 10/22/20 Stop Date: 11/21/20 Status: OrderedcloNIDine 0.1 mg oral tablet 0.1 mg, 1, tablet, By Mouth, Daily, # 30 tablet, Refills 0, Tot. Refills 0, Maintenance, 10/22/20 9:59:00 EST, Route to Pharmacy Electronically, [facility], Partial fill upon patient request if the prescription is for a schedu... Start Date: 10/22/20 Stop Date: 11/21/20 Status: OrderedDaily Multiple Vitamins oral tablet 1 tablet, By Mouth, Daily, # 90 tablet, 3 Refills, Maintenance, 01/16/21 10:49:00 EDT, [facility], 1 tablet By Mouth Daily, 180, cm, 10/22/20 8:16:00 EST, Height, 81.1, kg, 10/01/20 23:21:00 EST, Dry Weight Start Date: 01/16/21 Status: OrderedHaldol Decanoate decanoate 100 mg/ml injectable solution = 150 mg, Intramuscular, Once, Next dose on 11/01/2020, dispense on the dya of administration., # 1 each, 0 Refills, Soft Stop, 10/22/20 10:04:00 EST, Solution, [facility], Partial fill upon patient request if the prescription i... Start Date: 10/22/20 Status: Orderedhaloperidol 10 mg oral tablet 10 mg, 1, tablet, By Mouth, Daily at bedtime, # 30 tablet, Refills 0, Tot. Refills 0, Maintenance, 10/22/20 10:01:00 EST, Route to Pharmacy Electronically, [facility], Partial fill upon patient request if the prescription is f... Start Date: 10/22/20 Stop Date: 11/21/20 Status: OrderedKlonoPIN 1 mg oral tablet 1 tablet = 1 mg, By Mouth, 3 times a day, PRN Anxiety, # 42 tablet, 1 Refills, Maintenance, 02/22/219:59:00 EST, Tablet, [facility], Partial fill upon patient request if the prescription is for a schedule II opioid drug., 180... Start Date: 10/22/20 Stop Date: 11/19/20 Status: Orderedlamotrigine 100 mg oral tablet 250 mg, 2.5, tablet, By Mouth, Daily, # 75 tablet, Refills 0, Tot. Refills 0, Maintenance, 10/22/20 9:59:00 EST, Route to Pharmacy Electronically, [facility], Partial fill uponpatient request if the prescription is for a sche... Start Date: 10/22/20 Stop Date: 11/21/20 Status: Orderedlithium 600 mg oral capsule = 600 mg, By Mouth, 2 times a day, # 60 capsule, 0 Refills, Maintenance, 10/22/20 9:59:00 EST, Capsule, [facility], Partial fill upon patient request if the prescription is fora schedule II opioid drug., 180, cm, 10/22/20 8:1... Start Date: 10/22/20 Stop Date: 11/21/20 Status: OrderedQUEtiapine 100 mg oral tablet 100 mg, 1, tablet, By Mouth, 4 times a day, PRN, # 56 tablet, Refills 1, Tot. Refills 1, Maintenance, Agitation, 10/22/20 9:59:00 EST, Route to Pharmacy Electronically, [facility], Partial fill upon patient request if the pres... Start Date: 10/22/20 Stop Date: 11/19/20 Status: Ordered Problem List Condition Effective Dates Status Health Status Informant Bipolar disorder(Confirmed) Active Depression(Confirmed) Active Essential hypertension(Confirmed) Active Ingestion of toxic Active substance(Confirmed) PTSD (post-traumatic stress Active disorder)(Confirmed) Schizophrenia(Confirmed) Active H/O Substance use disorder(Confirmed) Active Suicidal ideation(Confirmed) Active Tobacco use(Confirmed) Active Results Radiology Reports Exam Date Time Procedure Performing Provider Status 01/21/21 4:54 PM Ankle Min 3 Views Left Mallory Iniguez; Au th (Verified) Notes:(Ankle Min 3 Views Left) Reason For Exam: with Pain;TraumaRESULT: Ankle Min 3 Views Left Ankle Min 3 Views Left INDICATION: Ankle pain after trauma. COMPARISON: None. FINDINGS: No evidence of acute or healing fracture or bone lesion. Intact ankle mortise and talar dome. No arthritic changes. Mild ankle soft tissue swelling. IMPRESSION: No acute osseous abnormality. Mild ankle soft tissue swelling. I have personally reviewed the images and I agree with this report. WSN: [id number] Ordering Physician: Amy Kaur Dictated By: Vincent[Radiology] Essence DUKE Dictated Date/Time: 01/21/21 5:00 pm Reviewed By: Bebo Moya MD Signed By: Bebo Moya MD Signed Date/Time: 01/21/21 5:05 pm Transcribed By: PATRICIA Transcribed Date/Time: 01/21/21 4:58 pm Vital Signs Most recent to oldest 1 2 3 [Reference Range]: Oxygen Saturation [94-100 %] 99 % 99 % 98 % (01/23/21 6:58 AM) (01/22/21 8:08 PM) (01/22/21 2:5 3 PM) Pulse Rate [55-90 bpm] 83 bpm 83 bpm 68 bpm (01/23/21 9:37 AM) (01/23/21 6:58 AM) (01/22/21 8:0 8 PM) Blood Pressure [90-138/55-84 mm 121/57 mm Hg 121/57 mm Hg 147/96 mm Hg Hg] (01/23/21 9:37 AM) (01/23/21 6:58 AM) *H* (01/22/21 8:08 PM ) Respiratory Rate [16-30 br/min] 18 br/min 18 br/min 18 br/min (01/23/21 6:58 AM) (01/22/21 8:08 PM) (01/22/21 2:5 3 PM) Temperature [96.8-100.4 DegF] 98.3 DegF 99.0 DegF 97 .8 DegF (01/23/21 6:58 AM) (01/22/21 8:08 PM) (01/22/21 2:5 3 PM) Liters per Minute 0 L/min (01/21/21 2:35 PM) Mode of Delivery (Oxygen) Room air Room air Room a ir (01/23/21 6:58 AM) (01/22/21 8:08 PM) (01/22/21 2:5 3 PM) Blood pressure sites Arm, left Arm, right Arm, right (01/23/21 6:58 AM) (01/22/21 8:08 PM) (01/22/21 2:5 3 PM) Temperature Route Oral Oral Oral (01/23/21 6:58 AM) (01/22/21 8:08 PM) (01/22/21 2:5 3 PM) Social History Social History Type Response Smoking Status Current every day smoker; Ot her: 1 ppd; entered on: 09/24/16 Sex
--- OUTSIDE RECORDS SUMMARY | 2022-06-12 11:14 | XMS_ITS | Continuity of Care Document ---
:1995 Author Organization [facility] Address [address] [place] [address]- Care Team Providers Name Role Phone Noé Galvan MD Primary Care Physician [place] [facility] [place] 11/[place]/21 [facility] [address], [place] [address] Attending Physician: Not on Staff, Attending Referring Physician: Noé Galvan MD Allergies, Adverse Reactions, Alerts No Known Allergies [...] 07/30/21 8:36:00 EST, Route to Pharmacy Electronically, [facility], Partial fill upon patient request if the prescription is for a schedul... Start Date: 07/30/21 Status: Orderedbenztropine 1 mg oral tablet 1 mg, 1, tablet, By Mouth, 2 times a day, # 60 tablet, Refills 0, Tot. Refills 0, Maintenance, 07/30/21 8:36:00 EST, Route to Pharmacy Electronically, [facility], Partial fill upon patient request if the prescription is for a... Start Date: 07/30/21 Status: Orderedclozapine 50 mg oral tablet 3 tablet = 150 mg, By Mouth, 2 times a day, Take three tablets in the morning and three tablets at bedtime, # 180 tablet, 0 Refills, Maintenance, 07/30/21 8:33:00 EST, Tablet, [facility], Partial fill upon patient request if t... Start Date: 07/30/21 Status: OrderedHaldol Decanoate decanoate 100 mg/ml injectable solution = 200 mg, Intramuscular, Once, Next dose on 07/31/2021, dispense on the day of administration., # 2 mL, 0 Refills, Soft Stop, 07/30/21 8:32:00 EST, Solution, [facility]-, Partial fill upon patient request if the prescription is... Start Date: 07/30/21 Status: Orderedhaloperidol 5 mg oral tablet 5 mg, 1, tablet, By Mouth, Daily at bedtime, # 30 tablet, Refills 0, Tot. Refills 0, Maintenance, 07/30/21 8:32:00 EST, Route to Pharmacy Electronically, [facility], Partial fill upon patient request if the prescription is for... Start Date: 07/30/21 Status: Orderedlithium 600 mg oral capsule = 1,200 mg, By Mouth, Daily at bedtime, # 60 capsule, 0 Refills, Maintenance, 07/30/21 8:32:00 EST, Capsule, [facility], Partial fill upon patient request if [...]
--- OUTSIDE RECORDS SUMMARY | 2022-06-12 11:14 | XMS_ITS | Continuity of Care Document ---
:1995 Author Organization [facility] Address [address] [place] [address]- Care Team Providers Name Role Phone Noé Galvan MD Primary Care Physician En[place] [facility] [place](s): 06/19/20 - 06/26/20 [facility] [address] [place] [address]- [facility] Attending Physician: Noé Galvan MD Allergies, Adverse [...] 06/26/20 16:09:00 EDT, Route to Pharmacy Electronically, [facility]-, 177, cm, 06/19/2010:31:00 EDT, Height, 73.3, kg, 09/26/18 3:01:00... Start Date: 06/26/20 Status: Orderedbenztropine 1 mg oral tablet 1 mg, By Mouth, 2 times a day, to prevent side effects from haldol, # 60 tablet, Refills 1, Tot. Refills 1, Maintenance, 09/30/18 13:22:19 EST, Route to Pharmacy Electronically, [id number], [facility] Start Date: 09/30/18 Status: OrderedHaldol Decanoate 100 [...] 09/30/18 13:25:45 EST, Route to Pharmacy Electronically, [id number], [facility] Start Date: 09/30/18 Status: Orderedhydrocortisone 1% topical [...] Refills, Maintenance, 11/15/19 10:51:00 EDT, [facility]-, 30, 1 tablet By Mouth Daily, 177, [...] Active Suicidal ideation(Confirmed) Active Tobacco use(Confirmed) Active Vital Signs Most recent to oldest [Reference Range]: 1 Height 177 cm (06/19/20 10:31 AM) Weight 88.3 kg (06/19/20 10:31 AM) Oxygen Saturation [94-100 %] 98 % (06/19/20 10:31 AM) Pulse Rate [55-90 bpm] 114 bpm *H* (06/19/20 10:31 AM) Body Mass Index [18.5-24.99] 28.18 *H* (06/19/20 10:31 AM) Blood Pressure [90-138/55-84 mm Hg] 130/70 mm Hg (06/19/20 10:31 AM) Temperature [96.8-100.4 DegF] 97.4 DegF (06/19/20 10:31 AM) Mode of Delivery (Oxygen) Room air (06/19/20 10:31 AM) Blood pressure sites Arm, right (06/19/20 10:31 AM) Temperature Route Oral (06/19/20 10:31 AM) Weight Obtained Via Standing scale (06/19/20 10:31 AM) Social History Social History Type Response Smoking Status Current every day smoker; Ot her: 1 ppd; entered on: 09/24/16 Sex
--- OUTSIDE RECORDS SUMMARY | 2022-06-12 11:14 | XMS_ITS | Continuity of Care Document ---
:1995 Author Organization [facility] Address [address] [place] [address]- Care Team Providers Name Role Phone Mandy DUKE, Noé Grover Primary Care Physician Encounter [facility] [place] Date(s): 02/20/22 - 03/22/22 [facility] [address] [place] [address]- Allergies, Adverse Reactions, Alerts Substance Reaction Severity [...] 03/06/22 14:07:00 EDT, Route to Pharmacy Electronically, [facility], Partial fill upon patientrequest if the prescription is for a schedule II... Start Date: 03/06/22 Stop Date: 03/13/22 Status: OrderedAbilify 10 mg oral tablet 10 mg, 1, tablet, By Mouth, Daily, # 30 tablet, Refills 0, Tot. Refills 0, Maintenance, 01/15/22 9:10:00 EDT, Route to Pharmacy Electronically, [facility]-, Partial fill upon patient request if the prescription is for a schedul... Start Date: 01/15/22 Status: Orderedacetaminophen 325 mg oral tablet 650 mg, 2, tablet, By Mouth, Every 4 hours, PRN, Temperature Greater than 100.5, # 50 tablet, Refills 11, Tot. Refills 11, Acute 01/16/23 4:25:00 EDT, Pain , Mild, 01/16/22 4:22:00 EDT, Route to Pharmacy Electronically, [facility]-2... Start Date: 01/16/22 Stop Date: 01/16/23 Status: Orderedatenolol 50 mg oral tablet 50 mg, 1, tablet, By Mouth, Daily, # 30 tablet, Refills 11, Tot. Refills 11, Maintenance, 01/16/22 4:23:00 EDT, Route to Pharmacy Electronically, [facility], Partial fill upon patient request if the prescription is for a sched... Start Date: 01/16/22 Status: Orderedcalcium carbonate 500 mg (200 mg elemental calcium) oral tablet, chewable 500 mg, 1, tablet, Chew, Every 4 hours, PRN, # 12 tablet, Refills 11, Tot. Refills 11, Maintenance, Dyspepsia, 01/16/22 4:23:00 EDT, Route to Pharmacy Electronically, [facility], Partial fill upon patient request if the prescr... Start Date: 01/16/22 Status: Orderedclotrimazole 1% topical cream See Instructions, Topically 2 times a day prn fungal rash, # 30 Gm, 2 Refills, Acute 01/16/23 4:26:00 EDT, 01/16/22 4:23:00 EDT, Cream, [facility], Partial fill upon patient request if the prescription is for a schedule II opi... Start Date: 01/16/22 Stop Date: 01/16/23 Status: Orderedclozapine 100 mg oral tablet 1 tablet = 100 mg, By Mouth, Daily in AM, # 30 tablet, 0 Refills, Maintenance, 01/15/22 9:11:00 EDT,Tablet, [facility], Partial fill upon patient request if the prescription is for a schedule II opioid drug., 177.8, cm, 01/14... Start Date: 01/15/22 Status: Orderedclozapine 50 mg oral tablet 2.5 tablet = 125 mg, By Mouth, Daily at bedtime, # 75 tablet, 0 Refills, Maintenance, 01/15/22 9:11:00 EDT, Tablet, [facility], Partial fill upon patient request if the prescription is for a schedule II opioid drug., 177.8, cm... Start Date: 01/15/22 Status: OrderedDaily Leonel oral tablet 1 tablet, By Mouth, Daily, # 28 tablet, 0 Refills, [facility], 28, TAKE 1 TABLET BY MOUTH DAILY, 177.8, cm, 01/14/22 13:45:00 EDT, Height, 95, kg, 01/02/22 20:50:00 EDT, Dry Weight Start Date: 03/17/22 Status: Ordereddextromethorphan-guaifenesin 10 mg-100 mg/10 mL oral liquid 5 mL, By Mouth, 3 times a day, PRN Cough and Congestion, # 118 mL, 5 Refills, Acute 06/19/22 14:20:00 EDT, 01/17/22 14:19:00 EDT, [facility], Partial fill upon patient request if the prescription is for a schedule II opioid dr... Start Date: 01/17/22 Stop Date: 06/19/22 Status: Ordereddextromethorphan-guaifenesin 5 mg-100 mg/5 mL oral liquid 5 mL, By Mouth, 3 times a day, PRN Cough, # 118 mL, 5 Refills, Acute 01/16/23 4:26:00 EDT, 01/16/22 4:23:00 EDT, Liquid, [facility], Partial fill upon patient request if the prescription is for a schedule II opioid drug., 5 mL... Start Date: 01/16/22 Stop Date: 01/16/23 Status: Orderedlamotrigine 200 mg oral tablet 1 tablet = 200 mg, By Mouth, Daily, # 30 tablet, 0 Refills, Maintenance, 01/15/22 9:11:00 EDT, Tablet, [facility], Partial fill upon patient request if [...] Acute 01/16/23 4:28:00 EDT, 01/16/22 4:27:00 EDT, [facility], Partial fill upon patient request if [...] 03/06/22 14:07:00 EDT, Route to Pharmacy Electronically, [facility], Partial fill upon patient request if the prescription is for a schedul... Start Date: 03/06/22 Stop Date: 03/13/22 Status: OrderedtraZODone 50 mg oral tablet 50 mg, 1, tablet, By Mouth, Daily at bedtime, PRN, # 30 tablet, Refills 0, Tot. Refills 0, Maintenance, Insomnia, 01/15/22 9:11:00 EDT, Route to Pharmacy Electronically, [facility], Partial fill upon patient request if [...]
--- OUTSIDE RECORDS SUMMARY | 2022-06-12 11:14 | XMS_ITS | Continuity of Care Document ---
:1995 Author Organization [facility] Address [address] [place] [address]- Care Team Providers Name Role Phone Noé Galvan MD Primary Care Physician [place] [facility] [place] - 03/06/[address] [address]- Discharge Disposition: A-D/C Home Attending Physician: Tiago Schaefer MD Admitting Physician: Tiago Schaefer MD Referring Physician: Not on Staff, Referring MD [...] 03/06/22 14:07:00 EDT, Route to Pharmacy Electronically, [facility], Partial fill upon patientrequest if the prescription is for a schedule II... Start Date: 03/06/22 Stop Date: 03/13/22 Status: OrderedAbilify 10 mg oral tablet 10 mg, 1, tablet, By Mouth, Daily, # 30 tablet, Refills 0, Tot. Refills 0, Maintenance, 01/15/22 9:10:00 EDT, [facility] [...] 01/16/22 4:22:00 EDT, Route to Pharmacy Electronically, [facility]-2... Start Date: 01/16/22 Stop Date: 01/16/23 Status: Orderedatenolol 50 mg oral tablet 50 mg, 1, tablet, By Mouth, Daily, # 30 tablet, Refills 11, Tot. Refills 11, Maintenance, 01/16/22 4:23:00 EDT, Route to Pharmacy Electronically, [facility], Partial fill upon patient request if the prescription is for a sched... Start Date: 01/16/22 Status: Orderedatenolol 50 mg oral tablet 50 mg, Tablet, By Mouth, 03/06/22 9:00:00 EDT Start Date: 03/06/22 Stop Date: 03/06/22 Status: Completedcalcium carbonate 500 mg (200 mg elemental calcium) oral tablet, chewable 500 mg, 1, tablet, Chew, Every 4 hours, PRN, # 12 tablet, Refills 11, Tot. Refills 11, Maintenance, Dyspepsia, 01/16/22 4:23:00 EDT, Route to Pharmacy Electronically, [facility], Partial fill upon patient request if the prescr... Start Date: 01/16/22 Status: Orderedclotrimazole 1% topical cream See Instructions, Topically 2 times a day prn fungal rash, # 30 Gm, 2 Refills, Acute 01/16/23 4:26:00 EDT, 01/16/22 4:23:00 EDT, Cream, [facility], Partial fill upon patient request if the prescription is for a schedule II opi... Start Date: 01/16/22 Stop Date: 01/16/23 Status: Orderedclozapine 100 mg oral tablet 1 tablet = 100 mg, By Mouth, Daily in AM, # 30 tablet, 0 Refills, Maintenance, 01/15/22 9:11:00 EDT,Tablet, [facility]-, Partial fill upon patient request if the prescription is for a schedule II opioid drug., 177.8, cm, 01/14... Start Date: 01/15/22 Status: Orderedclozapine 50 mg oral tablet 2.5 tablet = 125 mg, By Mouth, Daily at bedtime, # 75 tablet, 0 Refills, Maintenance, 01/15/22 9:11:00 EDT, Tablet, [facility], Partial fill upon patient request if the prescription is for a schedule II opioid drug., 177.8, cm... Start Date: 01/15/22 Status: Ordereddextromethorphan-guaifenesin 10 mg-100 mg/10 mL oral liquid 5 mL, By Mouth, 3 times a day, PRN Cough and Congestion, # 118 mL, 5 Refills, Acute 06/19/22 14:20:00 EDT, 01/17/22 14:19:00 EDT, [facility], Partial fill upon patient request if the prescription is for a schedule II opioid dr... Start Date: 01/17/22 Stop Date: 06/19/22 Status: Ordereddextromethorphan-guaifenesin 5 mg-100 mg/5 mL oral liquid 5 mL, By Mouth, 3 times a day, PRN Cough, # 118 mL, 5 Refills, Acute 01/16/23 4:26:00 EDT, 01/16/22 4:23:00 EDT, Liquid, [facility], Partial fill upon patient request if the prescription is for a schedule II opioid drug., 5 mL... Start Date: 01/16/22 Stop Date: 01/16/23 Status: Orderedlamotrigine 200 mg oral tablet 1 tablet = 200 mg, By Mouth, Daily, # 30 tablet, 0 Refills, Maintenance, 01/15/22 9:11:00 EDT, Tablet, [facility], Partial [...] Acute 01/16/23 4:28:00 EDT, 01/16/22 4:27:00 EDT, [facility]-, Partial fill [...] 03/06/22 14:07:00 EDT, Route to Pharmacy Electronically, [facility], Partial fill upon patient request if the prescription is for a schedul... Start Date: 03/06/22 Stop Date: 03/13/22 Status: OrderedtraZODone 50 mg oral tablet 50 mg, 1, tablet, By Mouth, Daily at bedtime, PRN, # 30 tablet, Refills 0, Tot. Refills 0, Maintenance, Insomnia, 01/15/22 9:11:00 EDT, [facility] [...] use(Confirmed) Active 1Problem added by Discern Expert Results Radiology Reports Exam Date Time Procedure Performing Provider Status 03/05/22 5:45 PM Chest 2 Views Frontal and Lat Sarah Kay; Praveen (Verified) Notes:(Chest 2 Views Frontal and Lat) Reason For Exam: Shortness of Breath, Fever;Other:RESULT: Chest 2 Views Frontal and Lat PROCEDURE: Chest 2 Views Frontal and Lat INDICATION: 26 years old Male with Hx of Present Illness: pt reports not being able to sleep for a week. hasn't been taking his meds for a 3weeks because of insurance. Denies SI HI; delusional thinking; also reports wanting detox for marijuana; Reason: Other:; Shortness of Breath, Fever; Clinical Question(s): Pneumonia. COMPARISON: Chest radiographs 12/30/2018 and 12/19/2021, unenhanced chest CT December 26, 2021. FINDINGS: PA and lateral upright views of the chest obtained. Lines and tubes:None. Lungs and pleura: Shallow inspiration on the frontal exam again noted. Lungs clear as visualized. Nopleural effusions.No evidence of pneumothorax. Heart, mediastinum and charlene: The cardiomediastinal silhouette and pulmonary vasculature are unremarkable. No cardiomegaly or pulmonary venous hypertension. Bones and soft tissues: Minimal levoscoliosis thoracic spine unchanged. IMPRESSION: 1. No evidence of acute cardiopulmonary disease. Shallow inspiration. Thank you for allowing me to participate in the care of this patient. WSN: [id number] Ordering Physician: Netta Parrish Dictated By: Lencho Hathaway MD Dictated Date/Time: 03/05/22 6:01 pm Reviewed By: Lencho Hathaway MD Signed By: Lencho Hathaway MD Signed Date/Time: 03/05/22 6:01 pm Transcribed By: PATRICIA Transcribed Date/Time: 03/05/22 6:00 pm Vital Signs Most recent to oldest [Reference 1 2 3 Range]: Oxygen Saturation [94-100 %] 99 % 99 % 97 % (03/06/22 6:44 AM) (03/05/22 11:08 PM) (03/05/22 4:15 PM) Pulse Rate [55-90 bpm] 86 bpm 67 bpm 60 bpm (03/06/22 9:22 AM) (03/06/22 6:44 AM) (03/05/22 11:08 PM) Blood Pressure [90-138/55-84 mm 122/71 mm Hg 133/77 mm Hg 119/72 mm Hg Hg] (03/06/22 9:22 AM) (03/06/22 6:44 AM) (03/05/22 11:08 PM) Respiratory Rate [16-30 br/min] 16 br/min 16 br/min 20 br/min (03/06/22 6:44 AM) (03/05/22 11:08 PM) (03/05/22 4:15 PM) Temperature [96.8-100.4 DegF] 97.9 DegF 98.4 DegF (03/06/22 6:44 AM) (03/05/22 4:15 PM) Mode of Delivery (Oxygen) Room air Room air Room a ir (03/06/22 6:44 AM) (03/05/22 11:08 PM) (03/05/22 4:15 PM) Blood pressure sites Arm, right Arm, right (03/06/22 6:44 AM) (03/05/22 4:15 PM) Temperature Route Oral Oral (03/06/22 6:44 AM) (03/05/22 4:15 PM) Social History Social History Type Response Smoking Status 10 or more cigarettes (1/2 p ack or more)/day in last 30 days; Interested in cessation: Yes; Patient wants NRT during admission Yes entered on: 12/25/21 Sex
--- OUTSIDE RECORDS SUMMARY | 2022-06-12 11:14 | XMS_ITS | Continuity of Care Document ---
:1995 Author Organization [facility] Address [address] [place] [address]- Care Team Providers Name Role Phone Mandy DUKE, Noé Grover Primary Care Physician Encounter [facility] Date(s): 01/02/22 - 01/15/[address] [address] Discharge Disposition: A-D/C Home Attending Physician: Charmaine López MD Admitting Physician: Silviano Adame MD Referring Physician: Not on Staff, Referring [...] 01/15/22 9:10:00 EDT, Route to Pharmacy Electronically, [facility]-, Partial fill upon patient request if the prescription is for a schedul... Start Date: 01/15/22 Status: Orderedacetaminophen 325 mg oral tablet 650 mg, By Mouth, Every 4 hours, PRN, Temperature Greater than 100.5, Refills 0, Maintenance, Pain ,Mild, 01/14/22 10:10:00 EDT, Partial fill upon patient request if the prescription is for a scheduleII opioid drug. Start Date: 01/14/22 Status: OrderedAcetaminophen Tablet 650 mg, Tablet, By Mouth, Every 4 hours, PRN for Pain , Mild, Temperature Greater than 100.5, Routine, 01/02/22 21:22:00 EDT Start Date: 01/02/22 Stop Date: 01/15/22 Status: Discontinuedatenolol 50 mg oral tablet 50 mg, 1, tablet, By Mouth, Daily, Refills 0, Maintenance, 01/02/22 14:14:00 EDT, Partial fill upon patient request if the prescription is for a schedule II opioid drug. Start Date: 01/02/22 Status: Orderedatenolol 50 mg oral tablet 50 mg, Tablet, By Mouth, 01/15/22 9:00:00 EDT Start Date: 01/15/22 Stop Date: 01/15/22 Status: Completedcalcium carbonate 500 mg (200 mg elemental calcium) oral tablet, chewable 500 mg, 1, tablet, Chew, Every 4 hours, PRN, Refills 0, Maintenance, Dyspepsia, 01/02/22 14:15:00 EDT, Partial fill upon patient request if the prescription is for a schedule II opioid drug. Start Date: 01/02/22 Status: OrderedClotrimazole 1% Topical 1 applicator, Topically, 2 times a day, 0 Refills, Maintenance, Cream Start Date: 01/02/22 Status: Orderedclozapine 100 mg oral tablet 1 tablet = 100 mg, By Mouth, Daily in AM, # 30 tablet, 0 Refills, Maintenance, 01/15/22 9:11:00 EDT,Tablet, [facility]-, Partial fill upon patient request if the prescription is for a schedule II opioid drug., 177.8, cm, 01/14... Start Date: 01/15/22 Status: Orderedclozapine 50 mg oral tablet 2.5 tablet = 125 mg, By Mouth, Daily at bedtime, # 75 tablet, 0 Refills, Maintenance, 01/15/22 9:11:00 EDT, Tablet, [facility]-, Partial fill upon patient request if the prescription is for a schedule II opioid drug., 177.8, cm... Start Date: 01/15/22 Status: OrderedGuaiFENEsin /Dextromethorphan Liquid 5 mL, By Mouth, 3 times a day, PRN Cough, 0 Refills, Maintenance, 01/14/22 10:12:00 EDT, Syrup, Partial fill upon patient request if the prescription is for a schedule II opioid drug. Start Date: 01/14/22 Status: OrderedhydrOXYzine pamoate 50 mg oral capsule 1 capsule = 50 mg, By Mouth, Every 6 hours, PRN Anxiety, for 21 days, # 100 capsule, 0 Refills, Acute 02/05/22 9:11:00 EDT, 01/15/22 9:11:00 EDT, Capsule, [facility]-, Partial fill upon patient request if the prescription is fo... Start Date: 01/15/22 Stop Date: 02/05/22 Status: Orderedlamotrigine 200 mg oral tablet 1 tablet = 200 mg, By Mouth, Daily, # 30 tablet, 0 Refills, Maintenance, 01/15/22 9:11:00 EDT, Tablet, [facility]-, Partial fill upon patient request if the prescription is for a schedule II opioid drug., 177.8, cm, 01/14/22 13... Start Date: 01/15/22 Status: OrderedMaalox Plus Liquid 30 mL, By Mouth, Every 4 hours, PRN Dyspepsia, 0 Refills, Maintenance, 01/14/22 10:11:00 EDT, Suspension, Partial fill upon patient request if the prescription is for a schedule II opioid drug. Start Date: 01/14/22 Status: Orderednicotine 4 mg oral transmucosal gum [...] EDT, Dry Weight Start Date: 07/30/21 Status: OrderedtraZODone 50 mg oral tablet 50 mg, 1, tablet, By Mouth, Daily at bedtime, PRN, # 30 tablet, Refills 0, Tot. Refills 0, Maintenance, Insomnia, 01/15/22 9:11:00 EDT, Route to Pharmacy Electronically, [facility]-, Partial fill upon patient request if [...] use(Confirmed) Active 1Problem added by Discern Expert Vital Signs Most recent to oldest 1 2 3 [Reference Range]: Height 177.8 cm 177.8 cm 177.8 cm (01/14/22 1:45 PM) (01/14/22 5:11 AM) (01/14/22 12: 09 AM) Weight 95.3 kg (01/02/22 8:50 PM) Oxygen Saturation [94-100 %] 99 % 99 % 98 % (01/15/22 5:00 AM) (01/14/22 8:00 PM) (01/14/22 1:4 5 PM) Pulse Rate [55-90 bpm] 78 bpm 76 bpm 71 bpm (01/15/22 8:09 AM) (01/15/22 5:00 AM) (01/14/22 8:0 0 PM) Body Mass Index [18.5-24.99] 30.15 *>HHI* (01/02/22 8:50 PM) Blood Pressure [90-138/55-84 110/60 mm Hg 110/59 mm Hg 140 /91 mm Hg mm Hg] (01/15/22 8:09 AM) (01/15/22 5:00 AM) *H* (01/14/22 8:00 PM ) Respiratory Rate [16-30 16 br/min 16 br/min 16 br/mi n br/min] (01/15/22 5:00 AM) (01/14/22 8:00 PM) (01/14/22 2:0 0 PM) Temperature [96.8-100.4 DegF] 97.9 DegF 97.4 DegF 98 .0 DegF (01/15/22 5:00 AM) (01/14/22 8:00 PM) (01/14/22 1:4 5 PM) Mode of Delivery (Oxygen) Room air Room air Room a ir (01/15/22 5:00 AM) (01/14/22 8:00 PM) (01/14/22 1:4 5 PM) Blood pressure sites Arm, right Arm, left Arm, right (01/15/22 5:00 AM) (01/14/22 8:00 PM) (01/14/22 1:4 5 PM) Temperature Route Oral Oral Oral (01/15/22 5:00 AM) (01/14/22 8:00 PM) (01/14/22 1:4 5 PM) Dry Weight 95 kg (01/02/22 8:50 PM) Social History Social History Type Response Smoking Status 10 or more cigarettes (1/2 p ack or more)/day in last 30 days; Interested in cessation: Yes; Patient wants NRT during admission Yes entered on: 12/25/21 Sex
--- OUTSIDE RECORDS SUMMARY | 2022-06-12 11:14 | XMS_ITS | Continuity of Care Document ---
:1995 Author Organization [facility] Address [address] [place] [address]- Care Team Providers Name Role Phone Noé Galvan MD Primary Care Physician Encounter [facility] Date(s): 03/22/21 - 07/20/21 [facility] [address] [place] [address]- Attending Physician: Noé Galvan MD Allergies, Adverse [...] 12/27/20 9:19:00 EDT, Route to Pharmacy Electronically, [facility], Partial fill upon patient request if the prescription is for a schedul... Start Date: 12/27/20 Stop Date: 06/25/21 Status: Orderedbenztropine 1 mg oral tablet 1 mg, 1, tablet, By Mouth, 2 times a day, # 60 tablet, Refills 0, Tot. Refills 0, Maintenance, 10/22/20 9:58:00 EST, Route to Pharmacy Electronically, [facility], Partial fill upon patient request if the prescription is for a... Start Date: 10/22/20 Stop Date: 11/21/20 Status: OrderedcloNIDine 0.1 mg oral tablet 0.1 mg, 1, tablet, By Mouth, Daily, # 30 tablet, Refills 0, Tot. Refills 0, Maintenance, 10/22/20 9:59:00 EST, Route to Pharmacy Electronically, [facility], Partial fill upon patient request if the prescription is for a schedu... Start Date: 10/22/20 Stop Date: 11/21/20 Status: OrderedDaily Multiple Vitamins oral tablet 1 tablet, By Mouth, Daily, # 90 tablet, 3 Refills, Maintenance, 01/16/21 10:49:00 EDT, [facility], 1 tablet By Mouth Daily, 180, cm, 10/22/20 8:16:00 EST, Height, 81.1, kg, 10/01/20 23:21:00 EST, Dry Weight Start Date: 01/16/21 Status: OrderedHaldol Decanoate decanoate 100 mg/ml injectable solution = 150 mg, Intramuscular, Once, Next dose on 11/01/2020, dispense on the dya of administration., # 1 each, 0 Refills, Soft Stop, 10/22/20 10:04:00 EST, Solution, [facility], Partial fill upon patient request if the prescription i... Start Date: 10/22/20 Status: Orderedhaloperidol 10 mg oral tablet 10 mg, 1, tablet, By Mouth, Daily at bedtime, # 30 tablet, Refills 0, Tot. Refills 0, Maintenance, 10/22/20 10:01:00 EST, Route to Pharmacy Electronically, [facility], Partial fill upon patient request if the prescription is f... Start Date: 10/22/20 Stop Date: 11/21/20 Status: OrderedKlonoPIN 1 mg oral tablet 1 tablet = 1 mg, By Mouth, 3 times a day, PRN Anxiety, # 42 tablet, 1 Refills, Maintenance, :59:00 EST, Tablet, [facility], Partial fill upon patient request if the prescription is for a schedule II opioid drug., 180... Start Date: 10/22/20 Stop Date: 11/19/20 Status: Orderedlamotrigine 100 mg oral tablet 250 mg, 2.5, tablet, By Mouth, Daily, # 75 tablet, Refills 0, Tot. Refills 0, Maintenance, 10/22/20 9:59:00 EST, Route to Pharmacy Electronically, [facility], Partial fill uponpatient request if the prescription is for a sche... Start Date: 10/22/20 Stop Date: 11/21/20 Status: Orderedlithium 600 mg oral capsule = 600 mg, By Mouth, 2 times a day, # 60 capsule, 0 Refills, Maintenance, 10/22/20 9:59:00 EST, Capsule, [facility]-, Partial fill upon patient request if the prescription is fora schedule II opioid drug., 180, cm, 10/22/20 8:1... Start Date: 10/22/20 Stop Date: 11/21/20 Status: OrderedQUEtiapine 100 mg oral tablet 100 mg, 1, tablet, By Mouth, 4 times a day, PRN, # 56 tablet, Refills 1, Tot. Refills 1, Maintenance, Agitation, 10/22/20 9:59:00 EST, Route to Pharmacy Electronically, [facility], Partial fill upon patient request if [...]
--- OUTSIDE RECORDS SUMMARY | 2022-06-12 11:14 | XMS_ITS | Continuity of Care Document ---
:1995 Author Organization [facility] Address [address] [place] [address]- Care Team Providers Name Role Phone Mandy DUKE, Noé Grover Primary Care Physician Encounter [facility] Date(s): 12/10/21 - 01/09/22 [facility] [address] [place] [address]- Allergies, Adverse Reactions, Alerts Substance Reaction Severity [...] 10 mg, 1, tablet, By Mouth, Daily, Refills 0, Maintenance, 01/02/22 14:15:00 EDT, Partial fill upon patient request if the prescription is for a schedule II opioid drug. Start Date: 01/02/22 Status: Orderedatenolol 50 mg oral tablet 50 mg, 1, tablet, By Mouth, Daily, Refills 0, Maintenance, 01/02/22 14:14:00 EDT, Partial fill upon patient request if the prescription is for a schedule II opioid drug. Start Date: 01/02/22 Status: Orderedcalcium carbonate 500 mg (200 mg [...] 100 mg, By Mouth, Daily in AM, 0 Refills, Maintenance, 01/02/22 14:14:00 EDT, Tablet, Partial fill upon patient request if the prescription is for a schedule II opioid drug. Start Date: 01/02/22 Status: Orderedclozapine 50 mg oral tablet 2.5 tablet = 125 mg, By Mouth, Daily at bedtime, 0 Refills, Maintenance, 01/02/22 14:14:00 EDT, Tablet, Partial fill upon patient request if the prescription is for a schedule II opioid drug. Start Date: 01/02/22 Status: OrderedhydrOXYzine pamoate 50 mg oral capsule = 50 mg, By Mouth, Every 6 hours, PRN Anxiety, 0 Refills, Maintenance, 01/02/22 14:16:00 EDT, Capsule, Partial fill upon patient request if the prescription is for a schedule II opioid drug. Start Date: 01/02/22 Status: Orderedlamotrigine 200 mg oral tablet 1 tablet = 200 mg, By Mouth, Daily, 0 Refills, Maintenance, 01/02/22 14:15:00 EDT, Tablet, Partial fill upon patient request if the prescription is for a schedule II opioid drug. Start Date: 01/02/22 Status: Orderednicotine 4 mg oral transmucosal gum [...] tablet, By Mouth, Daily at bedtime, PRN, Refills 0, Maintenance, Insomnia, 01/02/22 14:15:00 EDT, Partial fill upon patient request if the prescription is for a schedule II opioid drug. Start Date: 01/02/22 Status: Ordered Problem List Condition Effective Dates [...]
--- OUTSIDE RECORDS SUMMARY | 2022-06-12 11:14 | XMS_ITS | Continuity of Care Document ---
:1995 Author Organization [facility] Address [address] [place] [address]- Care Team Providers Name Role Phone Mandy DUKE, Noé Grover Primary Care Physician Encounter [facility] Date(s): 06/11/21 - 07/11/21 [facility] [address] [place] [address]- Allergies, Adverse Reactions, Alerts Substance Reaction Severity [...] EDT, Route to Pharmacy Electronically, [facility], Partial fill upon patient request if the prescription is for a schedul... Start Date: 12/27/20 Stop Date: 06/25/21 Status: Orderedbenztropine 1 mg oral tablet 1 mg, 1, tablet, By Mouth, 2 times a day, # 60 tablet, Refills 0, Tot. Refills 0, Maintenance, 10/22/20 9:58:00 EST, Route to Pharmacy Electronically, [facility], Partial fill upon patient request if the prescription is for a... Start Date: 10/22/20 Stop Date: 11/21/20 Status: OrderedcloNIDine 0.1 mg oral tablet 0.1 mg, 1, tablet, By Mouth, Daily, # 30 tablet, Refills 0, Tot. Refills 0, Maintenance, 10/22/20 9:59:00 EST, Route to Pharmacy Electronically, [facility], Partial fill upon patient request if the prescription is for a schedu... Start Date: 10/22/20 Stop Date: 11/21/20 Status: OrderedDaily Multiple Vitamins oral tablet 1 tablet, By Mouth, Daily, # 90 tablet, 3 Refills, Maintenance, 01/16/21 10:49:00 EDT, [facility], 1 tablet By Mouth Daily, 180, cm, 10/22/20 8:16:00 EST, Height, 81.1, kg, 10/01/20 23:21:00 EST, Dry Weight Start Date: 01/16/21 Status: OrderedHaldol Decanoate decanoate 100 mg/ml injectable solution = 150 mg, Intramuscular, Once, Next dose on 11/01/2020, dispense on the dya of administration., # 1 each, 0 Refills, Soft Stop, 10/22/20 10:04:00 EST, Solution, [facility], Partial fill upon patient request if the prescription i... Start Date: 10/22/20 Status: Orderedhaloperidol 10 mg oral tablet 10 mg, 1, tablet, By Mouth, Daily at bedtime, # 30 tablet, Refills 0, Tot. Refills 0, Maintenance, 10/22/20 10:01:00 EST, Route to Pharmacy Electronically, [facility], Partial fill upon patient request if the prescription is f... Start Date: 10/22/20 Stop Date: 11/21/20 Status: OrderedKlonoPIN 1 mg oral tablet 1 tablet = 1 mg, By Mouth, 3 times a day, PRN Anxiety, # 42 tablet, 1 Refills, Maintenance, :59:00 EST, Tablet, [facility], Partial fill upon patient request if the prescription is for a schedule II opioid drug., 180... Start Date: 10/22/20 Stop Date: 11/19/20 Status: Orderedlamotrigine 100 mg oral tablet 250 mg, 2.5, tablet, By Mouth, Daily, # 75 tablet, Refills 0, Tot. Refills 0, Maintenance, 10/22/20 9:59:00 EST, Route to Pharmacy Electronically, [facility], Partial fill uponpatient request if the prescription is for a sche... Start Date: 10/22/20 Stop Date: 11/21/20 Status: Orderedlithium 600 mg oral capsule = 600 mg, By Mouth, 2 times a day, # 60 capsule, 0 Refills, Maintenance, 10/22/20 9:59:00 EST, Capsule, [facility], Partial fill upon patient request if the prescription is fora schedule II opioid drug., 180, cm, 10/22/20 8:1... Start Date: 10/22/20 Stop Date: 11/21/20 Status: OrderedQUEtiapine 100 mg oral tablet 100 mg, 1, tablet, By Mouth, 4 times a day, PRN, # 56 tablet, Refills 1, Tot. Refills 1, Maintenance, Agitation, 10/22/20 9:59:00 EST, Route to Pharmacy Electronically, [facility], Partial fill upon patient request if [...]
--- OUTSIDE RECORDS SUMMARY | 2022-06-12 11:14 | XMS_ITS | Continuity of Care Document ---
:1995 Author Organization [facility] Address [address] [place] [address]- Care Team Providers Name Role Phone Noé Galvan MD Primary Care Physician [place] [facility] [place] 06/19/20 - 09/20/20 [facility] [address] [place] [address]- Attending Physician: Noé Galvan MD Allergies, Adverse [...] 06/26/20 16:09:00 EDT, Route to Pharmacy Electronically, [facility]-, 177, cm, 06/19/2010:31:00 EDT, Height, 73.3, kg, 09/26/18 3:01:00... Start Date: 06/26/20 Status: Orderedbenztropine 1 mg oral tablet 1 mg, By Mouth, 2 times a day, to prevent side effects from haldol, # 60 tablet, Refills 1, Tot. Refills 1, Maintenance, 09/30/18 13:22:19 EST, Route to Pharmacy Electronically, NCPDP_[id number], [facility] Start Date: 09/30/18 Status: OrderedHaldol Decanoate [...] 09/30/18 13:25:45 EST, Route to Pharmacy Electronically, NCPDP_ID-[id number], [facility] Start Date: 09/30/18 Status: Orderedhydrocortisone 1% [...] tablet, 11 Refills, Maintenance, 11/15/19 10:51:00 EDT, [facility]-, 30, 1 tablet By Mouth Daily, 177, [...]
--- OUTSIDE RECORDS SUMMARY | 2022-06-12 11:15 | XMS_ITS | Continuity of Care Document ---
:1995 Author Organization [facility] Address [address] [place] [address]- Care Team Providers Name Role Phone Mandy DUKE, Noé Grover Primary Care Physician Encounter [facility] Date(s): 01/16/22 - 02/15/22 [facility] [address] [place] [address]- Allergies, Adverse Reactions, Alerts Substance Reaction Severity [...] EDT, Route to Pharmacy Electronically, [facility]-, Partial fill upon patient request if the prescription is for a schedul... Start Date: 01/15/22 Status: Orderedacetaminophen 325 mg oral tablet 650 mg, 2, tablet, By Mouth, Every 4 hours, PRN, Temperature Greater than 100.5, # 50 tablet, Refills 11, Tot. Refills 11, Acute 01/16/23 4:25:00 EDT, Pain , Mild, 01/16/22 4:22:00 EDT, Route to Pharmacy Electronically, [facility]... Start Date: 01/16/22 Stop Date: 01/16/23 Status: Orderedatenolol 50 mg oral tablet 50 mg, 1, tablet, By Mouth, Daily, # 30 tablet, Refills 11, Tot. Refills 11, Maintenance, 01/16/22 4:23:00 EDT, Route to Pharmacy Electronically, [facility], Partial fill upon patient request if the prescription is for a sched... Start Date: 01/16/22 Status: Orderedcalcium carbonate 500 mg (200 mg elemental calcium) oral tablet, chewable 500 mg, 1, tablet, Chew, Every 4 hours, PRN, # 12 tablet, Refills 11, Tot. Refills 11, Maintenance, Dyspepsia, 01/16/22 4:23:00 EDT, Route to Pharmacy Electronically, [facility], Partial fill upon patient request if the prescr... Start Date: 01/16/22 Status: Orderedclotrimazole 1% topical cream See Instructions, Topically 2 times a day prn fungal rash, # 30 Gm, 2 Refills, Acute 01/16/23 4:26:00 EDT, 01/16/22 4:23:00 EDT, Cream, [facility], Partial fill upon patient request if the prescription is for a schedule II opi... Start Date: 01/16/22 Stop Date: 01/16/23 Status: Orderedclozapine 100 mg oral tablet 1 tablet = 100 mg, By Mouth, Daily in AM, # 30 tablet, 0 Refills, Maintenance, 01/15/22 9:11:00 EDT,Tablet, [facility], Partial fill upon patient request if the prescription is for a schedule II opioid drug., 177.8, cm, 01/14... Start Date: 01/15/22 Status: Orderedclozapine 50 mg oral tablet 2.5 tablet = 125 mg, By Mouth, Daily at bedtime, # 75 tablet, 0 Refills, Maintenance, 01/15/22 9:11:00 EDT, Tablet, [facility], Partial fill upon patient request if the prescription is for a schedule II opioid drug., 177.8, cm... Start Date: 01/15/22 Status: Ordereddextromethorphan-guaifenesin 10 mg-100 mg/10 mL oral liquid 5 mL, By Mouth, 3 times a day, PRN Cough and Congestion, # 118 mL, 5 Refills, Acute 06/19/22 14:20:00 EDT, 01/17/22 14:19:00 EDT, [facility]-, Partial fill upon patient request if the prescription is for a schedule II opioid dr... Start Date: 01/17/22 Stop Date: 06/19/22 Status: Ordereddextromethorphan-guaifenesin 5 mg-100 mg/5 mL oral liquid 5 mL, By Mouth, 3 times a day, PRN Cough, # 118 mL, 5 Refills, Acute 01/16/23 4:26:00 EDT, 01/16/22 4:23:00 EDT, Liquid, [facility]-, Partial fill upon patient request if the prescription is for a schedule II opioid drug., 5 mL... Start Date: 01/16/22 Stop Date: 01/16/23 Status: Orderedlamotrigine 200 mg oral tablet 1 tablet = 200 mg, By Mouth, Daily, # 30 tablet, 0 Refills, Maintenance, 01/15/22 9:11:00 EDT, Tablet, [facility]-, Partial fill upon patient request if [...] Acute 01/16/23 4:28:00 EDT, 01/16/22 4:27:00 EDT, [facility]-, Partial fill upon patient request if [...] EDT, Route to Pharmacy Electronically, [facility]-, Partial fill upon patient request if [...]
--- OUTSIDE RECORDS SUMMARY | 2022-06-12 11:15 | XMS_ITS | Continuity of Care Document ---
:1995 Author Organization [facility] Adult Address [address] [place] [address]- Care Team Providers Name Role Phone Noé Galvan MD Primary Care Physician Encounter [facility] Date(s): 12/30/19 - 02/03/20 [facility] [address] [place] [address]- [facility] Attending Physician: Noé Galvan MD Allergies, [...] 10:48:37 EDT, Route to Pharmacy Electronically, NCPDP_ID- [id number], [facility] Start Date: 04/25/19 Status: Orderedbenztropine 1 mg oral tablet 1 mg, By Mouth, 2 times a day, to prevent side effects from haldol, # 60 tablet, Refills 1, Tot. Refills 1, Maintenance, 09/30/18 13:22:19 EST, Route to Pharmacy Electronically, NCPDP_ID-[id number], [facility] Start Date: 09/30/18 Status: OrderedHaldol Decanoate [...] 09/30/18 13:25:45 EST, Route to Pharmacy Electronically, NCPDP_ID-[id number], [facility] Start Date: 09/30/18 Status: Orderedhydrocortisone 1% [...] tablet, 11 Refills, Maintenance, 11/15/19 10:51:00 EDT, [facility], 30, 1 tablet By Mouth Daily, [...]
--- OUTSIDE RECORDS SUMMARY | 2022-06-12 11:15 | XMS_ITS | Continuity of Care Document ---
:1995 Author Organization [facility] Adult Address [address] [place] [address]- Care Team Providers Name Role Phone Mandy DUKE, Noé Grover Primary Care Physician Encounter [facility] [place] Date(s): 04/19/20 - 05/19/20 [facility] [address] [place] [address]- [facility] Allergies, Adverse Reactions, Alerts Substance Reaction Severity [...] 10:48:37 EDT, Route to Pharmacy Electronically, NCPDP_ID- [id number], [facility] Start Date: 04/25/19 Status: Orderedbenztropine 1 mg oral tablet 1 mg, By Mouth, 2 times a day, to prevent side effects from haldol, # 60 tablet, Refills 1, Tot. Refills 1, Maintenance, 09/30/18 13:22:19 EST, Route to Pharmacy Electronically, NCPDP_ID-[id number], [facility] Start Date: 09/30/18 Status: OrderedHaldol Decanoate 100 [...] 09/30/18 13:25:45 EST, Route to Pharmacy Electronically, NCPDP_ID-[id number], [facility] Start Date: 09/30/18 Status: Orderedhydrocortisone 1% [...] tablet, 11 Refills, Maintenance, 11/15/19 10:51:00 EDT, [facility], 30, 1 tablet By Mouth Daily, [...]
--- OUTSIDE RECORDS SUMMARY | 2022-06-12 11:15 | XMS_ITS | Continuity of Care Document ---
:1995 Author Organization [facility] Adult Address [address] [place] [address]- Care Team Providers Name Role Phone Mandy DUKE, Noé Grover Primary Care Physician [place] [facility] [place](s): 01/15/22 - 02/14/22 [facility] [address] [place] [address]- Allergies, Adverse Reactions, Alerts Substance Reaction Severity [...] 01/15/22 9:10:00 EDT, Route to Pharmacy Electronically, [facility]-, Partial fill upon patient request if the prescription is for a schedul... Start Date: 01/15/22 Status: Orderedacetaminophen 325 mg oral tablet 650 mg, 2, tablet, By Mouth, Every 4 hours, PRN, Temperature Greater than 100.5, # 50 tablet, Refills 11, Tot. Refills 11, Acute 01/16/23 4:25:00 EDT, Pain , Mild, 01/16/22 4:22:00 EDT, Route to Pharmacy Electronically, [facility]... Start Date: 01/16/22 Stop Date: 01/16/23 Status: Orderedatenolol 50 mg oral tablet 50 mg, 1, tablet, By Mouth, Daily, # 30 tablet, Refills 11, Tot. Refills 11, Maintenance, 01/16/22 4:23:00 EDT, Route to Pharmacy Electronically, [facility], Partial fill upon patient request if the prescription is for a sched... Start Date: 01/16/22 Status: Orderedcalcium carbonate 500 mg (200 mg elemental calcium) oral tablet, chewable 500 mg, 1, tablet, Chew, Every 4 hours, PRN, # 12 tablet, Refills 11, Tot. Refills 11, Maintenance, Dyspepsia, 01/16/22 4:23:00 EDT, Route to Pharmacy Electronically, [facility], Partial fill upon patient request if the prescr... Start Date: 01/16/22 Status: Orderedclotrimazole 1% topical cream See Instructions, Topically 2 times a day prn fungal rash, # 30 Gm, 2 Refills, Acute 01/16/23 4:26:00 EDT, 01/16/22 4:23:00 EDT, Cream, [facility], Partial fill upon patient request if the prescription is for a schedule II opi... Start Date: 01/16/22 Stop Date: 01/16/23 Status: Orderedclozapine 100 mg oral tablet 1 tablet = 100 mg, By Mouth, Daily in AM, # 30 tablet, 0 Refills, Maintenance, 01/15/22 9:11:00 EDT,Tablet, [facility], Partial fill upon patient request if the prescription is for a schedule II opioid drug., 177.8, cm, 01/14... Start Date: 01/15/22 Status: Orderedclozapine 50 mg oral tablet 2.5 tablet = 125 mg, By Mouth, Daily at bedtime, # 75 tablet, 0 Refills, Maintenance, 01/15/22 9:11:00 EDT, Tablet, [facility], Partial fill upon patient request if the prescription is for a schedule II opioid drug., 177.8, cm... Start Date: 01/15/22 Status: Ordereddextromethorphan-guaifenesin 10 mg-100 mg/10 mL oral liquid 5 mL, By Mouth, 3 times a day, PRN Cough and Congestion, # 118 mL, 5 Refills, Acute 06/19/22 14:20:00 EDT, 01/17/22 14:19:00 EDT, [facility]-, Partial fill upon patient request if the prescription is for a schedule II opioid dr... Start Date: 01/17/22 Stop Date: 06/19/22 Status: Ordereddextromethorphan-guaifenesin 5 mg-100 mg/5 mL oral liquid 5 mL, By Mouth, 3 times a day, PRN Cough, # 118 mL, 5 Refills, Acute 01/16/23 4:26:00 EDT, 01/16/22 4:23:00 EDT, Liquid, [facility]-, Partial fill upon patient request if the prescription is for a schedule II opioid drug., 5 mL... Start Date: 01/16/22 Stop Date: 01/16/23 Status: Orderedlamotrigine 200 mg oral tablet 1 tablet = 200 mg, By Mouth, Daily, # 30 tablet, 0 Refills, Maintenance, 01/15/22 9:11:00 EDT, Tablet, [facility]-, Partial fill upon patient request if the [...] Acute 01/16/23 4:28:00 EDT, 01/16/22 4:27:00 EDT, [facility]-, Partial fill upon patient request if the [...] 01/15/22 9:11:00 EDT, Route to Pharmacy Electronically, [facility]-, Partial fill upon patient request if the [...]
--- OUTSIDE RECORDS SUMMARY | 2022-06-12 11:15 | XMS_ITS | Continuity of Care Document ---
:1995 Author Organization [facility] Adult Address [address] [place] [address]- Care Team Providers Name Role Phone Noé Galvan MD Primary Care Physician Encounter [facility] [place] Date(s): 03/29/20 - 04/05/20 [facility] [address] [place] [address]- [facility] Attending Physician: Noé Galvan MD [...] 10:48:37 EDT, Route to Pharmacy Electronically, NCPDP_ID- [id number], [facility] Start Date: 04/25/19 Status: Orderedbenztropine 1 mg oral tablet 1 mg, By Mouth, 2 times a day, to prevent side effects from haldol, # 60 tablet, Refills 1, Tot. Refills 1, Maintenance, 09/30/18 13:22:19 EST, Route to Pharmacy Electronically, NCPDP_ID-[id number], [facility] Start Date: 09/30/18 Status: OrderedHaldol Decanoate [...] 09/30/18 13:25:45 EST, Route to Pharmacy Electronically, NCPDP_ID-[id number], [facility] Start Date: 09/30/18 Status: Orderedhydrocortisone [...] tablet, 11 Refills, Maintenance, 11/15/19 10:51:00 EDT, [facility], 30, 1 tablet By Mouth Daily, 177, [...] Active disorder)(Confirmed) Schizophrenia(Confirmed) Active Suicidal ideation(Confirmed) Active Vital Signs Most recent to oldest [Reference Range]: 1 Height 177 cm (03/29/20 10:50 AM) Weight 90.9 kg (03/29/20 10:50 AM) Oxygen Saturation [94-100 %] 98 % (03/29/20 10:50 AM) Pulse Rate [55-90 bpm] 85 bpm (03/29/20 10:50 AM) Body Mass Index [18.5-24.99] 29.01 *H* (03/29/20 10:50 AM) Blood Pressure [90-138/55-84 mm Hg] 112/64 mm Hg (03/29/20 10:50 AM) Respiratory Rate [16-30 br/min] 16 br/min (03/29/20 10:50 AM) Temperature [96.8-100.4 DegF] 98.5 DegF (03/29/20 10:50 AM) Blood pressure sites Arm, right (03/29/20 10:50 AM) Temperature Route Oral (03/29/20 10:50 AM) Weight Obtained Via Standing scale (03/29/20 10:50 AM) Social History Social History Type Response Smoking Status Current every day smoker; Ot her: 1 ppd; entered on: 09/24/16 Sex
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
[2022-06-12 12:30] LABS: Basophils Percent Auto 0.1 % (0-2); Hematocrit 38.3 % (42.0-52.0); Imm Gran Abs Auto 0.01 X10*3/uL (0.00-0.03); Imm Gran Pct Auto 0.1 % (0.0-0.4); Lymphocytes Absolute Auto 2.1 X10*3/uL (1.2-4.9); Lymphocytes Percent Auto 27.7 % (20-40); MANUAL DIFF FLAG NO; Mean Corpuscular HGB Conc 33.9 g/dl (31.0-36.0); Mean Corpuscular Volume 82.5 fL (80.0-98.0); Mean Platelet Volume 9.7 fL (9.4-12.4); Monocytes Absolute Auto 0.4 X10*3/uL (0.1-1.2); Monocytes Percent Auto 5.6 % (2-11); Neutrophils Percent Auto 66.5 % (45-73); Platelet Count 257 X10*3/uL (160-400); Red Blood Count 4.64 X10*6/uL (4.60-5.80); White Blood Count 7.5 X10*3/uL (4.8-10.8)
[2022-06-12 12:43] VITALS: BP 123/60; PULSE 69; RESP 13; TEMP 36.8; O2SAT 93
[2022-06-12 12:48] LABS: Alanine Aminotransferase 27 U/L (0-40); Albumin Level 4.3 g/dL (3.5-5.0); Alkaline Phosphatase 129 U/L (39-117); Anion Gap 12 (12-20); Aspartate Amino Transferase 33 U/L (5-37); Bilirubin Total 0.4 mg/dL (0.0-1.0); Blood Urea Nitrogen 12 mg/dL (9-16); Calcium 9.8 mg/dL (8.4-10.2); Carbon Dioxide 25 mmol/L (22-29); Chloride 102 mmol/L (96-108); Creatinine Clr Calc Pharmacy 95.2; Estimated Glomerular Filt Rate > 60; Ethanol < 10 mg/dL; Glucose Random 146 mg/dL (60-115); Potassium 3.7 mmol/L (3.3-5.1); Sodium 135 mmol/L (135-145); Total Protein 6.9 g/dL (6.5-8.0)
[2022-06-12 12:49] LABS: COVID-19 Test Negative (Negative)
[2022-06-12 12:50] LABS: Amphetamine Screen Urine Not Detected (Not Detect); Barbiturates, Urine Not Detected (Not Detect); Benzodiazepines Screen Urine Not Detected (Not Detect); Cannabinoid Screen Urine POSITIVE (Not Detect); Cocaine Screen Urine Not Detected (Not Detect); Fentanyl, urine Not Detected (Not Detect); Opiate Screen Urine Not Detected (Not Detect); Phencyclidine Screen Urine Not Detected (Not Detect)
--- NOTE | 2022-06-12 20:10 | PHA.MEDREC ---
Pharmacy Consult ? Medication Reconciliation Pt was discharged 05/15/22 and was stable on medications here, but there is no recent claim history to suggest continuation of inhouse medications including clozapine. Spoke to Joss in the pod who noted that talking to the patient would not be helpful in obtaining recent medication history; pt also has no contacts available for reconciliation help. Leaving medications unconfirmed pending admission.
[2022-06-12 20:47] LABS: Lithium 1.17 mmol/L (0.60-1.20)
[2022-06-12 23:00] VITALS: BP 119/70; PULSE 79; RESP 16; TEMP 35.9; O2SAT 99
[2022-06-12] MEDS: cloZAPine 25 MG TABLET PO (23:17)
[2022-06-12] MEDS: hydrOXYzine HCL 25 MG TABLET PO (23:17)
[2022-06-12] MEDS: Omeprazole 20 MG CAPSULE.DR PO (23:17)
[2022-06-12] MEDS: guaiFENesin DM 600/30 1 TAB TAB.ER.12H PO (23:44)
[2022-06-12] MEDS: Lithium Carbonate 300 MG TABLET 1050 MG PO (23:44)
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
[2022-06-13 06:00] VITALS: BP 146/76; PULSE 88; RESP 18; TEMP 36.6; O2SAT 98
[2022-06-13] MEDS: Multivitamin TABLET 1 TAB PO (08:08)
[2022-06-13] MEDS: atenoloL 100 MG TABLET PO (08:08)
[2022-06-13] MEDS: Lithium Carbonate ER 300 MG TABLET.ER 600 MG PO (08:08)
[2022-06-13] MEDS: cloNIDine HCL 0.1 MG TABLET PO (08:09)
[2022-06-13] MEDS: Omeprazole 20 MG CAPSULE.DR PO ×2 (08:09→16:27)
[2022-06-13] MEDS: hydrOXYzine HCL 25 MG TABLET PO ×2 (08:09→15:42)
[2022-06-13] MEDS: Benztropine Mesylate 1 MG TABLET 2 MG PO (08:09)
[2022-06-13] MEDS: clonazePAM 0.5 MG TABLET PO (08:09)
[2022-06-13 09:31] LABS: Estimated Average Glucose 100 mg/dL; Hemoglobin A1c % 5.1 %
[2022-06-13 09:56] LABS: Cholesterol 186 mg/dL; HDL Cholesterol 25 mg/dL; LDL Cholesterol Calculated 119 mg/dl; Magnesium 1.9 mg/dL (1.6-2.6); Triglycerides 214 mg/dL
[2022-06-13 10:21] LABS: Free T4 (Free Thyroxine) 1.05 ng/dL (0.71-1.85); Thyroid Stimulating Hormone 0.72 uIU/mL (0.32-4.0)
[2022-06-13 10:40] LABS: Folate > 20.0 ng/mL (> or = 4.0); Vitamin B12 472 pg/mL (200-900)
--- NOTE | 2022-06-13 12:18 | PC.NURSE ---
Social work spoke with pt's RN who has been providing him with medication (before pt was admitted), she stated last invega kadeem was 06/02/22.
[2022-06-13] MEDS: Magnesium Hydrox/Alum Hydrox 30 ML ORAL.SUSP PO (12:50)
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
[2022-06-13] MEDS: cloZAPine 25 MG TABLET 62.5 MG PO (20:10)
[2022-06-13 20:11] VITALS: BP 126/67; PULSE 68; RESP 18; TEMP 36.6; O2SAT 98
[2022-06-13] MEDS: cloZAPine 100 MG TABLET PO (20:11)
[2022-06-13] MEDS: Lithium Carbonate 300 MG TABLET 1050 MG PO (20:11)
[2022-06-13] MEDS: guaiFENesin DM 600/30 1 TAB TAB.ER.12H PO (20:11)
[2022-06-14 09:10] VITALS: BP 171/80; PULSE 96; RESP 16; TEMP 36.8; O2SAT 98
[2022-06-14] MEDS: clonazePAM 0.5 MG TABLET PO (09:55)
[2022-06-14] MEDS: cloZAPine 25 MG TABLET 150 MG PO (09:55)
[2022-06-14] MEDS: Fluticasone Propionate Nasal 16 GM SPRAY 1 SPRAY NOSTRIL-B (09:55)
[2022-06-14] MEDS: Omeprazole 20 MG CAPSULE.DR PO ×2 (09:56→19:01)
[2022-06-14] MEDS: Lithium Carbonate ER 300 MG TABLET.ER 600 MG PO (09:56)
[2022-06-14] MEDS: Multivitamin TABLET 1 TAB PO (09:56)
[2022-06-14] MEDS: Benztropine Mesylate 1 MG TABLET 2 MG PO (09:56)
[2022-06-14] MEDS: atenoloL 100 MG TABLET PO (09:56)
[2022-06-14] MEDS: cloNIDine HCL 0.1 MG TABLET PO (09:56)
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
[2022-06-14] MEDS: hydrOXYzine HCL 25 MG TABLET PO (19:01)
[2022-06-14] MEDS: Lithium Carbonate 300 MG TABLET 1050 MG PO (20:01)
[2022-06-14] MEDS: cloZAPine 25 MG TABLET 62.5 MG PO (20:02)
[2022-06-14] MEDS: guaiFENesin DM 600/30 1 TAB TAB.ER.12H PO (20:02)
[2022-06-14 20:03] VITALS: BP 127/59; PULSE 74; RESP 18; TEMP 36.4; O2SAT 96
[2022-06-14] MEDS: cloZAPine 100 MG TABLET PO (20:03)
[2022-06-15 08:30] VITALS: BP 135/87; PULSE 88; RESP 18; TEMP 37.1; O2SAT 97
[2022-06-15] MEDS: Omeprazole 20 MG CAPSULE.DR PO ×2 (08:41→17:29)
[2022-06-15] MEDS: Fluticasone Propionate Nasal 16 GM SPRAY 1 SPRAY NOSTRIL-B (08:41)
[2022-06-15] MEDS: Benztropine Mesylate 1 MG TABLET 2 MG PO (08:41)
[2022-06-15] MEDS: atenoloL 100 MG TABLET PO (08:41)
[2022-06-15] MEDS: cloNIDine HCL 0.1 MG TABLET PO (08:41)
[2022-06-15] MEDS: Multivitamin TABLET 1 TAB PO (08:41)
[2022-06-15] MEDS: clonazePAM 0.5 MG TABLET PO (08:41)
[2022-06-15] MEDS: cloZAPine 25 MG TABLET 150 MG PO (08:42)
[2022-06-15] MEDS: Lithium Carbonate ER 300 MG TABLET.ER 600 MG PO (08:42)
[2022-06-15] MEDS: guaiFENesin LA 600 MG TAB.ER.12H PO (09:12)
[2022-06-15 09:27] LABS: COVID-19 Test Negative (Negative); IDNOW Serial# 55D5AD1C
--- NOTE | 2022-06-15 09:27 | PC.NURSE ---
This morning Aftab reports new onset sore throat and continuing head congestion with new chest congestion. He is afebrile. He has thick yellow/ green nasal discharge and nonproductive junky cough. He requested mucinex. Dr Noriega informed. Covid swab now and mucinex ordered. Pt was instructed to mask on the unit and stay 6 feet from others. He agreed to do so but was noncompliant with these instructions.
[2022-06-15] MEDS: hydrOXYzine HCL 25 MG TABLET PO ×2 (12:03→22:19)
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
[2022-06-15] MEDS: chlorproMAZINE HCl 25 MG TABLET PO (17:29)
[2022-06-15 20:30] VITALS: BP 143/81; PULSE 74; RESP 16; TEMP 36.4; O2SAT 98
[2022-06-15] MEDS: Lithium Carbonate 300 MG TABLET 1050 MG PO (21:39)
[2022-06-15] MEDS: cloZAPine 100 MG TABLET PO (21:39)
[2022-06-15] MEDS: guaiFENesin DM 600/30 1 TAB TAB.ER.12H PO (21:39)
[2022-06-15] MEDS: cloZAPine 25 MG TABLET 62.5 MG PO (21:40)
[2022-06-16 08:21] VITALS: BP 131/77; PULSE 77; RESP 15; TEMP 36.6; O2SAT 95
[2022-06-16] MEDS: atenoloL 100 MG TABLET PO (08:50)
[2022-06-16] MEDS: Lithium Carbonate ER 300 MG TABLET.ER 600 MG PO (08:50)
[2022-06-16] MEDS: cloNIDine HCL 0.1 MG TABLET PO (08:50)
[2022-06-16] MEDS: Omeprazole 20 MG CAPSULE.DR PO ×2 (08:50→16:06)
[2022-06-16] MEDS: Multivitamin TABLET 1 TAB PO (08:50)
[2022-06-16] MEDS: cloZAPine 25 MG TABLET 125 MG PO (08:50)
[2022-06-16] MEDS: Benztropine Mesylate 1 MG TABLET 2 MG PO (08:51)
[2022-06-16] MEDS: clonazePAM 0.5 MG TABLET PO (08:51)
[2022-06-16] MEDS: Fluticasone Propionate Nasal 16 GM SPRAY 1 SPRAY NOSTRIL-B (08:51)
[2022-06-16] MEDS: guaiFENesin LA 600 MG TAB.ER.12H PO (09:03)
[2022-06-16 09:07] LABS: COVID-19 Test Negative (Negative); IDNOW Serial# 16C4AD1C
[2022-06-16] MEDS: chlorproMAZINE HCl 25 MG TABLET PO (14:19)
[2022-06-16] MEDS: Magnesium Hydrox/Alum Hydrox 30 ML ORAL.SUSP PO (14:20)
--- NOTE | 2022-06-16 15:16 | HO.PSYCHPN ---
Subjective Subjective Date of Service: 06/16/22 Reason For Visit: Psychosis Interim History: calm, cooperative. variably visible in the milieu and napping. complains again about feeling too sedated from clozaril, asks for dosing reduction again. agre to reduce morning dose from 125 to 100 as of tomorrow. no other complaints or requests. Mental Status Exam Mental Status Exam Narrative: up and about. Casual attire, overweight, unkempt. fair eye contact, inattentive. No Tics or Tremors. No abnormal involuntary movements. Calm, cooperative. Non-pressured speech, normal volume. No prolonged speech latency or dysarthria. Mood is ?okay,? affect is calm. no SI/HI/AVH expressed. Thoughts are generally linear and logical. No known cognitive or memory impairment. Insight/ Judgment is poor. Diagnostics Vital Signs (24Hr): Vital Signs - 24 hr 06/15/22 20:30 06/16/22 08:21 Temperature 97.6 F 97.9 F Pulse Rate 74 77 Respiratory Rate 16 15 Blood Pressure 143/81 H 131/77 Pulse Oximetry 98 95 Oxygen Delivery Method Room Air Room Air BMI result Body Mass Index 28.1 Labs Results: 06/12/22 12:23 06/12/22 12:23 Labs: Laboratory Results - last 48 hr 06/15/22 06/16/22 09:00 08:25 COVID-19 ([facility]HEEN) Negative Negative COVID-19 Clin Com See Note See Note Medications Medications Current Medications Acetaminophen (Acetaminophen 325 Mg Tablet) 650 mg PO Q6H PRN PRN Reason: Headache/Pain Mild Scale (1-3) Al Hydroxide/Mg Hydroxide (Magnesium Hydrox/Alum Hydrox 30 Ml Oral.Susp) 30 ml PO Q6H PRN PRN Reason: Heartburn/Nausea Last Admin: 06/16/22 14:20 Dose: 30 ml Atenolol (Atenolol 100 Mg Tablet) 100 mg PO DAILY MAHENDRA; Protocol Last Admin: 06/16/22 08:50 Dose: 100 mg Benztropine Mesylate (Benztropine Mesylate 1 Mg Tablet) 2 mg PO DAILY [facility]HENDRA Last Admin: 06/16/22 08:51 Dose: 2 mg Chlorpromazine HCl (Chlorpromazine Hcl 25 Mg Tablet) 25 mg PO Q6H PRN PRN Reason: Anxiety Last Admin: 06/16/22 14:19 Dose: 25 mg Clonazepam (Clonazepam 0.5 Mg Tablet) 0.5 mg PO DAILY [facility] Last Admin: 06/16/22 08:51 Dose: 0.5 mg Clonidine HCl (Clonidine Hcl 0.1 Mg Tablet) 0.1 mg PO DAILY [facility]; Protocol Last Admin: 06/16/22 08:50 Dose: 0.1 mg Clozapine (Clozapine 25 Mg Tablet) 62.5 mg PO BEDTIME [facility]ENDRA Last Admin: 06/15/22 21:40 Dose: 62.5 mg Clozapine (Clozapine 100 Mg Tablet) 100 mg PO BEDTIME [facility]ENDRA Last Admin: 06/15/22 21:39 Dose: 100 mg Clozapine (Clozapine 100 Mg Tablet) 100 mg PO DAILY [facility] Fluticasone Propionate (Fluticasone Propionate Nasal 16 Gm [place]) 1 spray NOSTRIL-B DAILY [facility] Last Admin: 06/16/22 08:51 Dose: 1 spray Guaifenesin (Guaifenesin La 600 Mg Tab.Er.12h) 600 mg PO BID PRN PRN Reason: Congestion Last Admin: 06/16/22 09:03 Dose: 600 mg Guaifenesin/Dextromethorphan (Guaifenesin Dm 600/30 1 Tab Tab.Er.12h) 1 tab PO BEDTIME [facility]HENDRA Last Admin: 06/15/22 21:39 Dose: 1 tab Hydroxyzine HCl (Hydroxyzine Hcl 25 Mg Tablet) 25 mg PO Q6H PRN PRN Reason: Anxiety Last Admin: 06/15/22 22:19 Dose: 25 mg Tab Carbonate (Tab Carbonate Er 300 Mg Tablet.Er) 600 mg PO DAILY [facility] Last Admin: 06/16/22 08:50 Dose: 600 mg Tab Carbonate (Tab Carbonate 300 Mg Tablet) 1,050 mg PO BEDTIME [facility]ENDRA Last Admin: 06/15/22 21:39 Dose: 1,050 mg Magnesium Hydroxide (Milk Of Magnesia 30 Ml Oral.Susp) 30 ml PO DAILY PRN PRN Reason: Constipation Multivitamins/Vitamin C (Multivitamin Tablet) 1 tab PO DAILY [facility] Last Admin: 06/16/22 08:50 Dose: 1 tab Nicotine Polacrilex (Nicotine Polacrilex 2 Mg Gum) 4 mg BUCCAL Q1H PRN PRN Reason: cravings Omeprazole (Omeprazole 20 Mg Capsule.Dr) 20 mg PO BID@0630,1630 [facility] Last Admin: 06/16/22 08:50 Dose: 20 mg Paliperidone Palmitate (Paliperidone Palmitate 234 Mg/1.5 Ml Syringe) 234 mg IM Q28D [facility] Last Admin: 06/13/22 15:01 Dose: Not Given Pharmacy Consult (Consult Rx Perform Med Rec) 1 each MISCELLANE ONCE PRN PRN Reason: Consult order Trazodone HCl (Trazodone Hcl 50 Mg Tablet) 50 mg PO BEDTIME PRN PRN Reason: Insomnia Allergies Allergies Allergy/AdvReac Type Severity Reaction Status Date / Time No Known Allergies Allergy Unverified 05/17/20 19:19 [No Known Allergies*] Assessment & Plan Assessment & Plan (1) Schizophrenia, chronic condition: Status: Acute Code(s): F20.9 - Schizophrenia, unspecified Plan Aftab is a 27-year-old male who carries a dx of schizophrenia. Has community Steven?s Order, in PACT program. Pt presented to [facility] due to reporting that he is homeless and he did not feel safe where he was (residing at [facility]), has been using cocaine and marijuana. Pt reports he has been adherent with his medications, Li level was 1.17. Pt endorsed assaultive ideation and presented as tangential, disorganized, and with poor insight. Recently discharged from [facility] after over 2 month admission, had been re-started on clozapine. Utox positive for cannabis only. Last invega sustenna dose 06/02/22. Plan: Pt reports med adherence, however has not been able to maintain in the community, has paranoid and grandiose delusions that lead to impulsive and unsafe decision making. May consider [facility] referral. Q15 min safety checks, CV Monitor response to medications. Monitor for safety in the milieu. Discharge on stabilization. Patient seen. Chart reviewed. Discussed with team. Obtain collateral contact info?as needed 06/14: continue current mgmt. may be essentially at his baseline. search for housing/program options. 06/15: stable, reasonably well. c/o feeling like a zombie and asking to decrease clozaril dosing. morning dose decreased by 25 mg, from 150 to 125. 06/16: c/o sedaton from clozaril. morning dose decreased from 125 mg to 100 mg as of tomorrow. I spent ___20___ minutes with the patient and/or on the patient floor today, greater than?50% of which was spent counseling/coordinating care. Reason for contiued inpatient stay Substantial Risk for: inability to function and rapid decompensation
[2022-06-16] MEDS: hydrOXYzine HCL 25 MG TABLET PO (17:07)
[2022-06-16 20:03] VITALS: BP 151/91; PULSE 72; RESP 18; TEMP 36.4; O2SAT 99
[2022-06-16] MEDS: Lithium Carbonate 300 MG TABLET 1050 MG PO (20:09)
[2022-06-16] MEDS: cloZAPine 100 MG TABLET PO (20:10)
[2022-06-16] MEDS: guaiFENesin DM 600/30 1 TAB TAB.ER.12H PO (20:10)
[2022-06-16] MEDS: cloZAPine 25 MG TABLET 62.5 MG PO (20:10)
[2022-06-17 06:00] VITALS: BP 138/81; PULSE 99; RESP 16; TEMP 36.3; O2SAT 97
[2022-06-17] MEDS: Benztropine Mesylate 1 MG TABLET 2 MG PO (09:31)
[2022-06-17] MEDS: Lithium Carbonate ER 300 MG TABLET.ER 600 MG PO (09:32)
[2022-06-17] MEDS: clonazePAM 0.5 MG TABLET PO (09:32)
[2022-06-17] MEDS: Multivitamin TABLET 1 TAB PO (09:32)
[2022-06-17] MEDS: Omeprazole 20 MG CAPSULE.DR PO ×2 (09:33→16:06)
[2022-06-17] MEDS: atenoloL 100 MG TABLET PO (09:33)
[2022-06-17] MEDS: cloNIDine HCL 0.1 MG TABLET PO (09:33)
[2022-06-17] MEDS: cloZAPine 100 MG TABLET PO ×2 (09:33→19:45)
[2022-06-17] MEDS: Fluticasone Propionate Nasal 16 GM SPRAY 1 SPRAY NOSTRIL-B (09:36)
[2022-06-17 10:51] LABS: COVID-19 Test Negative (Negative); IDNOW Serial# 16C4AD1C
--- NOTE | 2022-06-17 13:20 | P.PNPSI_ITS ---
Subjective Subjective Date of Service: 06/17/22 Reason For Visit: Psychosis Interim History: calm, cooperative. generally socially appropriate. states he is feeling fine aside from a cough. discuss the main issue, his lack of housing. he met with SW this morning and they discussed options, SW to be in touch with [facility] and outside providers for collaboration. agreeable to remain at clozapine 100 mg in the morning and HS dosing unchanged. per staff, denied anx/dep yesterday. eating and sleeping well. denied AVH. up late. used atarax in [place], watching TV and playing games. Mental Status Exam Mental Status Exam Narrative: up and about. Casual attire, overweight, unkempt. fair eye contact, inattentive. No Tics or Tremors. No abnormal involuntary movements. Calm, cooperative. Non- pressured speech, normal volume. No prolonged speech latency or dysarthria. Mood is ?okay,? affect is calm. no SI/HI/AVH expressed. Thoughts are generally linear and logical. No known cognitive or memory impairment. Insight/ Judgment is poor. Diagnostics Vital Signs (24Hr): Vital Signs - 24 hr 06/16/22 20:03 06/17/22 06:00 Temperature 97.6 F 97.4 F Pulse Rate 72 99 Respiratory Rate 18 16 Blood Pressure 151/91 H 138/81 Pulse Oximetry 99 97 Oxygen Delivery Method Room Air Room Air BMI result Body Mass Index 28.1 Labs Results: 06/12/22 12:23 06/12/22 12:23 Labs: Laboratory Results - last 48 hr 06/16/22 06/17/22 08:25 10:05 COVID-19 ([facility]HEEN) Negative Negative COVID-19 Clin Com See Note See Note Medications Medications Current Medications Acetaminophen (Acetaminophen 325 Mg Tablet) 650 mg PO Q6H PRN PRN Reason: Headache/Pain Mild Scale (1-3) Al Hydroxide/Mg Hydroxide (Magnesium Hydrox/Alum Hydrox 30 Ml Oral.Susp) 30 ml PO Q6H PRN PRN Reason: Heartburn/Nausea Last Admin: 06/16/22 14:20 Dose: 30 ml Atenolol (Atenolol 100 Mg Tablet) 100 mg PO DAILY MAHENDRA; Protocol Last Admin: 06/17/22 09:33 Dose: 100 mg Benztropine Mesylate (Benztropine Mesylate 1 Mg Tablet) 2 mg PO DAILY [facility]HENDRA Last Admin: 06/17/22 09:31 Dose: 2 mg Chlorpromazine HCl (Chlorpromazine Hcl 25 Mg Tablet) 25 mg PO Q6H PRN PRN Reason: Anxiety Last Admin: 06/16/22 14:19 Dose: 25 mg Clonazepam (Clonazepam 0.5 Mg Tablet) 0.5 mg PO DAILY [facility] Last Admin: 06/17/22 09:32 Dose: 0.5 mg Clonidine HCl (Clonidine Hcl 0.1 Mg Tablet) 0.1 mg PO DAILY MAHENDRA; Protocol Last Admin: 06/17/22 09:33 Dose: 0.1 mg Clozapine (Clozapine 25 Mg Tablet) 62.5 mg PO BEDTIME MAHENDRA Last Admin: 06/16/22 20:10 Dose: 62.5 mg Clozapine (Clozapine 100 Mg Tablet) 100 mg PO BEDTIME MAHENDRA Last Admin: 06/16/22 20:10 Dose: 100 mg Clozapine (Clozapine 100 Mg Tablet) 100 mg PO DAILY [facility]ENDRA Last Admin: 06/17/22 09:33 Dose: 100 mg Fluticasone Propionate (Fluticasone Propionate Nasal 16 Gm [place]) 1 spray NOSTRIL-B DAILY [facility]HENDRA Last Admin: 06/17/22 09:36 Dose: 1 spray Guaifenesin (Guaifenesin La 600 Mg Tab.Er.12h) 600 mg PO BID PRN PRN Reason: Congestion Last Admin: 06/16/22 09:03 Dose: 600 mg Guaifenesin/Dextromethorphan (Guaifenesin Dm 600/30 1 Tab Tab.Er.12h) 1 tab PO BEDTIME MAHENDRA Last Admin: 06/16/22 20:10 Dose: 1 tab Hydroxyzine HCl (Hydroxyzine Hcl 25 Mg Tablet) 25 mg PO Q6H PRN PRN Reason: Anxiety Last Admin: 06/16/22 17:07 Dose: 25 mg [place] Carbonate ([place] Carbonate Er 300 Mg Tablet.Er) 600 mg PO DAILY MAHENDRA Last Admin: 06/17/22 09:32 Dose: 600 mg [place] Carbonate ([place] Carbonate 300 Mg Tablet) 1,050 mg PO BEDTIME MAHENDRA Last Admin: 06/16/22 20:09 Dose: 1,050 mg Magnesium Hydroxide (Milk Of Magnesia 30 Ml Oral.Susp) 30 ml PO DAILY PRN PRN Reason: Constipation Multivitamins/Vitamin C (Multivitamin Tablet) 1 tab PO DAILY [facility]HENDRA Last Admin: 06/17/22 09:32 Dose: 1 tab Nicotine Polacrilex (Nicotine Polacrilex 2 Mg Gum) 4 mg BUCCAL Q1H PRN PRN Reason: cravings Omeprazole (Omeprazole 20 Mg Capsule.) 20 mg PO BID@0630,1630 [facility] Last Admin: 06/17/22 09:33 Dose: 20 mg Paliperidone Palmitate (Paliperidone Palmitate 234 Mg/1.5 Ml Syringe) 234 mg IM Q28D [facility] Last Admin: 06/13/22 15:01 Dose: Not Given Pharmacy Consult (Consult Rx Perform Med Rec) 1 each MISCELLANE ONCE PRN PRN Reason: Consult order Trazodone HCl (Trazodone Hcl 50 Mg Tablet) 50 mg PO BEDTIME PRN PRN Reason: Insomnia Allergies Allergies Allergy/AdvReac Type Severity Reaction Status Date / Time No Known Allergies Allergy Unverified 05/17/20 19:19 [No Known Allergies*] Assessment & Plan Assessment & Plan (1) Schizophrenia, chronic condition: Status: Acute Code(s): F20.9 - Schizophrenia, unspecified Plan Aftab is a 27-year-old male who carries a dx of schizophrenia. Has community Steven?s Order, in PACT program. Pt presented to [facility] due to reporting that he is homeless and he did not feel safe where he was (residing at [facility]), has been using cocaine and marijuana. Pt reports he has been adherent with his medications, Li level was 1.17. Pt endorsed assaultive ideation and presented as tangential, disorganized, and with poor insight. Recently discharged from [facility] after over 2 month admission, had been re-started on clozapine. Utox positive for cannabis only. Last invega sustenna dose 06/02/22. Plan: Pt reports med adherence, however has not been able to maintain in the community, has paranoid and grandiose delusions that lead to impulsive and unsafe decision making. May consider [facility] referral. Q15 min safety checks, CV Monitor response to medications. Monitor for safety in the milieu. Discharge on stabilization. Patient seen. Chart reviewed. Discussed with team. Obtain collateral contact info?as needed 06/14: continue current mgmt. may be essentially at his baseline. search for housing/program options. 06/15: stable, reasonably well. c/o feeling like a zombie and asking to decrease clozaril dosing. morning dose decreased by 25 mg, from 150 to 125. 06/16: c/o sedaton from clozaril. morning dose decreased from 125 mg to 100 mg as of tomorrow. 06/17: stable, up again in the morning today. continue current mgmt. I spent ___20___ minutes with the patient and/or on the patient floor today, greater than?50% of which was spent counseling/coordinating care. Reason for contiued inpatient stay Substantial Risk for: inability to function and rapid decompensation
[2022-06-17] MEDS: chlorproMAZINE HCl 25 MG TABLET PO (14:25)
[2022-06-17] MEDS: hydrOXYzine HCL 25 MG TABLET PO (17:10)
[2022-06-17 19:45] VITALS: BP 138/77; PULSE 79; RESP 18; TEMP 36.7; O2SAT 97
[2022-06-17] MEDS: cloZAPine 25 MG TABLET 62.5 MG PO (19:45)
[2022-06-17] MEDS: Lithium Carbonate 300 MG TABLET 1050 MG PO (19:45)
[2022-06-17] MEDS: guaiFENesin DM 600/30 1 TAB TAB.ER.12H PO (19:47)
[2022-06-18] MEDS: cloNIDine HCL 0.1 MG TABLET PO (08:25)
[2022-06-18] MEDS: Multivitamin TABLET 1 TAB PO (08:25)
[2022-06-18] MEDS: cloZAPine 100 MG TABLET PO ×2 (08:25→19:57)
[2022-06-18] MEDS: Omeprazole 20 MG CAPSULE.DR PO ×2 (08:25→16:47)
[2022-06-18] MEDS: clonazePAM 0.5 MG TABLET PO (08:25)
[2022-06-18] MEDS: Benztropine Mesylate 1 MG TABLET 2 MG PO (08:25)
[2022-06-18] MEDS: atenoloL 100 MG TABLET PO (08:25)
[2022-06-18] MEDS: Lithium Carbonate ER 300 MG TABLET.ER 600 MG PO (08:25)
[2022-06-18 08:32] VITALS: BP 155/75; PULSE 89; RESP 17; TEMP 36.4; O2SAT 98
[2022-06-18] MEDS: guaiFENesin LA 600 MG TAB.ER.12H PO (08:37)
[2022-06-18] MEDS: Fluticasone Propionate Nasal 16 GM SPRAY 1 SPRAY NOSTRIL-B ×2 (08:37→19:59)
[2022-06-18 09:34] LABS: Adenovirus PCR Not Detected (Not Detect.); Bordetella parapertussis PCR Not Detected (Not Detect.); Bordetella pertussis PCR Not Detected (Not Detect.); Chlamydia pneumoniae PCR Not Detected (Not Detect.); Coronavirus 229E PCR Not Detected (Not Detect.); Coronavirus HKU1 PCR Not Detected (Not Detect.); Coronavirus NL63 PCR Not Detected (Not Detect.); Coronavirus OC43 PCR Not Detected (Not Detect.); Human metapneumovirus PCR Not Detected (Not Detect.); Influenza A PCR Not Detected (Not Detect.); Influenza B PCR Not Detected (Not Detect.); Mycoplasma pneumoniae PCR Not Detected (Not Detect.); Parainfluenza 1 PCR Not Detected (Not Detect.); Parainfluenza 2 PCR Not Detected (Not Detect.); Parainfluenza 3 PCR Not Detected (Not Detect.); Parainfluenza 4 PCR Not Detected (Not Detect.); RSV PCR Not Detected (Not Detect.); Rhino/Enterovirus PCR Not Detected (Not Detect.); SARS-CoV-2 PCR Not Detected (Not Detect.)
--- NOTE | 2022-06-18 12:06 | P.PNPSI_ITS ---
Subjective Subjective Date of Service: 06/18/22 Reason For Visit: Psychosis Subjective Notes: Conditional Voluntary Interim History: Pt calm, cooperative. He reports feeling tired and needing to sleep during the day. Pending results for respiratory panel as he has been neg for covid. Afebrile. Taking medications as prescribed. No behavioral concerns. Awaiting placement. He denies SI/HI. No over delusional content noted or reported. Medication Compliance: Yes Side effects from medications: No Review of Systems Review of Systems CVS: No c/o chest pain, palpitations, no SOB [employer]CH[employer]ICIAN: No c/o dizziness, headache GI: No c/o Nausea, Vomiting, diarrhea, constipation or heartburn Mental Status Exam Mental Status Exam Narrative: Casual attire, overweight, unkempt. fair eye contact, inattentive. No Tics or Tremors. No abnormal involuntary movements. Calm, cooperative. Non-pressured speech, normal volume. No prolonged speech latency or dysarthria. Mood is ?okay,? affect is calm. no SI/HI/AVH expressed. Thoughts are generally linear and logical. No known cognitive or memory impairment. Insight/ Judgment is poor. Diagnostics Vital Signs (24Hr): Vital Signs - 24 hr 06/17/22 19:45 06/18/22 08:32 Temperature 98.1 F 97.6 F Pulse Rate 79 89 Respiratory Rate 18 17 Blood Pressure 138/77 155/75 H Pulse Oximetry 97 98 Oxygen Delivery Method Room Air Room Air BMI result Body Mass Index 28.1 Labs Results: 06/12/22 12:23 06/12/22 12:23 Labs: Laboratory Results - last 48 hr 06/17/22 06/17/22 10:05 16:30 Respiratory Panel Julien See Note Adenovirus (Rapid PCR) Not Detected B.pert (TEM-PCR) Not Detected B.parapertussis DNA PCR Not Detected C. pneumoniae DNA (PCR) Not Detected Coronavirus OC43 (PCR) Not Detected Coronavirus HKU1 (PCR) Not Detected Coronavirus 229E (PCR) Not Detected COVID-19 (SHAHEEN) Negative COVID-19 Clin Com See Note Coronavirus NL63 (PCR) Not Detected Human Metapneumovir PCR Not Detected Influenza A (RT-PCR) Not Detected Influenza B (RT-PCR) Not Detected M. pneumoniae (PCR) Not Detected Parainfluenza 1 (PCR) Not Detected Parainfluenza 2 (PCR) Not Detected Parainfluenza 3 (PCR) Not Detected Parainfluenza 4 (PCR) Not Detected RSV (PCR) Not Detected Entero/Rhino (PCR) Not Detected SARS-CoV-2 RNA (RT-PCR) Not Detected Medications Medications Current Medications Acetaminophen (Acetaminophen 325 Mg Tablet) 650 mg PO Q6H PRN PRN Reason: Headache/Pain Mild Scale (1-3) Al Hydroxide/Mg Hydroxide (Magnesium Hydrox/Alum Hydrox 30 Ml Oral.Susp) 30 ml PO Q6H PRN PRN Reason: Heartburn/Nausea Last Admin: 06/16/22 14:20 Dose: 30 ml Atenolol (Atenolol 100 Mg Tablet) 100 mg PO DAILY MAHENDRA; Protocol Last Admin: 06/18/22 08:25 Dose: 100 mg Benztropine Mesylate (Benztropine Mesylate 1 Mg Tablet) 2 mg PO DAILY MAHENDRA Last Admin: 06/18/22 08:25 Dose: 2 mg Chlorpromazine HCl (Chlorpromazine Hcl 25 Mg Tablet) 25 mg PO Q6H PRN PRN Reason: Anxiety Last Admin: 06/17/22 14:25 Dose: 25 mg Clonidine HCl (Clonidine Hcl 0.1 Mg Tablet) 0.1 mg PO DAILY MAHENDRA; Protocol Last Admin: 06/18/22 08:25 Dose: 0.1 mg Clozapine (Clozapine 25 Mg Tablet) 62.5 mg PO BEDTIME MAHENDRA Last Admin: 06/17/22 19:45 Dose: 62.5 mg Clozapine (Clozapine 100 Mg Tablet) 100 mg PO BEDTIME MAHENDRA Last Admin: 06/17/22 19:45 Dose: 100 mg Clozapine (Clozapine 100 Mg Tablet) 100 mg PO DAILY [facility]HENDRA Last Admin: 06/18/22 08:25 Dose: 100 mg Fluticasone Propionate (Fluticasone Propionate Nasal 16 Gm [place]) 1 spray NO STRIL-B DAILY MAHENDRA Last Admin: 06/18/22 08:37 Dose: 1 spray Guaifenesin (Guaifenesin La 600 Mg Tab.Er.12h) 600 mg PO BID PRN PRN Reason: Congestion Last Admin: 06/18/22 08:37 Dose: 600 mg Guaifenesin/Dextromethorphan (Guaifenesin Dm 600/30 1 Tab Tab.Er.12h) 1 tab PO BEDTIME MAHENDRA Last Admin: 06/17/22 19:47 Dose: 1 tab Hydroxyzine HCl (Hydroxyzine Hcl 25 Mg Tablet) 25 mg PO Q6H PRN PRN Reason: Anxiety Last Admin: 06/17/22 17:10 Dose: 25 mg [place] Carbonate ([place] Carbonate Er 300 Mg Tablet.Er) 600 mg PO DAILY [facility] Last Admin: 06/18/22 08:25 Dose: 600 mg [place] Carbonate ([place] Carbonate 300 Mg Tablet) 1,050 mg PO BEDTIME [facility] Last Admin: 06/17/22 19:45 Dose: 1,050 mg Magnesium Hydroxide (Milk Of Magnesia 30 Ml Oral.Susp) 30 ml PO DAILY PRN PRN Reason: Constipation Multivitamins/Vitamin C (Multivitamin Tablet) 1 tab PO DAILY [facility] Last Admin: 06/18/22 08:25 Dose: 1 tab Nicotine Polacrilex (Nicotine Polacrilex 2 Mg Gum) 4 mg BUCCAL Q1H PRN PRN Reason: cravings Omeprazole (Omeprazole 20 Mg Capsule.Dr) 20 mg PO BID@0630,1630 [facility] Last Admin: 06/18/22 08:25 Dose: 20 mg Paliperidone Palmitate (Paliperidone Palmitate 234 Mg/1.5 Ml Syringe) 234 mg IM Q28D [facility] Last Admin: 06/13/22 15:01 Dose: Not Given Pharmacy Consult (Consult Rx Perform Med Rec) 1 each MISCELLANE ONCE PRN PRN Reason: Consult order Trazodone HCl (Trazodone Hcl 50 Mg Tablet) 50 mg PO BEDTIME PRN PRN Reason: Insomnia Allergies Allergies Allergy/AdvReac Type Severity Reaction Status Date / Time No Known Allergies Allergy Unverified 05/17/20 19:19 [No Known Allergies*] Assessment & Plan Assessment & Plan (1) Schizophrenia, chronic condition: Status: Acute Code(s): F20.9 - Schizophrenia, unspecified Plan Aftab is a 27-year-old male who carries a dx of schizophrenia. Has community Steven?s Order, in PACT program. Pt presented to [facility] ED due to reporting that he is homeless and he did not feel safe where he was (residing at [facility]), has been using cocaine and marijuana. Pt reports he has been adherent with his medications, Li level was 1.17. Pt endorsed assaultive ideation and presented as tangential, disorganized, and with poor insight. Recently discharged from [facility] M3 after over 2 month admission, had been re-started on clozapine. Utox positive for cannabis only. Last invega sustenna dose 06/02/22. Plan: Pt reports med adherence, however has not been able to maintain in the community, has paranoid and grandiose delusions that lead to impulsive and unsa fe decision making. May consider [facility] referral. Q15 min safety checks, CV Monitor response to medications. Monitor for safety in the milieu. Discharge on stabilization. Patient seen. Chart reviewed. Discussed with team. Obtain collateral contact info?as needed 06/14: continue current mgmt. may be essentially at his baseline. search for housing/program options. 06/15: stable, reasonably well. c/o feeling like a zombie and asking to decrease clozaril dosing. morning dose decreased by 25 mg, from 150 to 125. 06/16: c/o sedaton from clozaril. morning dose decreased from 125 mg to 100 mg as of tomorrow. 06/17: stable, up again in the morning today. continue current mgmt. 06/18 continue current tx. pending respiratory panel. I spent minutes with the patient and/or on the patient floor today, greater than?50% of which was spent counseling/coordinating care. Reason for contiued inpatient stay Substantial Risk for: inability to function
[2022-06-18] MEDS: hydrOXYzine HCL 25 MG TABLET PO (17:45)
[2022-06-18 18:00] VITALS: BP 153/88; PULSE 90; RESP 16; TEMP 36.1; O2SAT 98
[2022-06-18] MEDS: cloZAPine 25 MG TABLET 62.5 MG PO (19:55)
[2022-06-18] MEDS: Lithium Carbonate 300 MG TABLET 1050 MG PO (19:57)
[2022-06-18] MEDS: guaiFENesin DM 600/30 1 TAB TAB.ER.12H PO (19:57)
[2022-06-18] MEDS: chlorproMAZINE HCl 25 MG TABLET PO (23:22)
[2022-06-18 23:27] LABS: Clozapine (Clozaril) 24 mcg/L; Norclozapine 25 mcg/L (25-400)
[2022-06-19 09:16] LABS: Neut%MD 53.7 %; Neutrophils Absolute Auto 4.5 x10*3/uL (2.0-8.3); WBCANC 8.3 X10*3/uL
[2022-06-19] MEDS: cloNIDine HCL 0.1 MG TABLET PO (09:53)
[2022-06-19] MEDS: Benztropine Mesylate 1 MG TABLET 2 MG PO (09:53)
[2022-06-19] MEDS: atenoloL 100 MG TABLET PO (09:53)
[2022-06-19] MEDS: Lithium Carbonate ER 300 MG TABLET.ER 600 MG PO (09:53)
[2022-06-19] MEDS: Omeprazole 20 MG CAPSULE.DR PO ×2 (09:53→15:46)
[2022-06-19] MEDS: Multivitamin TABLET 1 TAB PO (09:53)
[2022-06-19] MEDS: Fluticasone Propionate Nasal 16 GM SPRAY 1 SPRAY NOSTRIL-B (09:53)
[2022-06-19] MEDS: cloZAPine 100 MG TABLET PO ×2 (09:54→20:31)
[2022-06-19 10:40] VITALS: BP 158/78; PULSE 100; RESP 16; TEMP 36.7; O2SAT 97
--- NOTE | 2022-06-19 12:50 | HO.PSYCHPN ---
Subjective Subjective Date of Service: 06/19/22 Reason For Visit: Psychosis Interim History: found lying in bed resting, easily rousable. does not turn to face MD. single-word answers. denies any problems or concerns. has no questions for MD. MD informs pt SW is investigating dispo options for him. per staff, seems to be feeling relatively well. med-compliant. nasal congestion, cough. Mental Status Exam Mental Status Exam Narrative: asleep in bed, rousable to voice. Casual attire, overweight, unkempt. no eye contact, disengaged. No Tics or Tremors. No abnormal involuntary movements. Calm, cooperative. Non-pressured speech, normal volume. No prolonged speech latency or dysarthria. Mood is ?okay. no SI/HI/AVH expressed. Thoughts are superficially linear and logical. No known cognitive or memory impairment. Insight/ Judgment is poor. Diagnostics Vital Signs (24Hr): Vital Signs - 24 hr 06/18/22 18:00 06/19/22 10:40 Temperature 97.0 F 98.1 F Pulse Rate 90 100 Respiratory Rate 16 16 Blood Pressure 153/88 H 158/78 H Pulse Oximetry 98 97 Oxygen Delivery Method Room Air Room Air BMI result Body Mass Index 28.1 Labs Results: 06/12/22 12:23 06/12/22 12:23 Labs: Laboratory Results - last 48 hr 06/13/22 06/17/22 06/19/22 18:47 16:30 08:42 Absolute Neuts (auto) 4.5 Clozapine 24 Norclozapine 25 Respiratory Panel Julien See Note Adenovirus (Rapid PCR) Not Detected B.pert (TEM-PCR) Not Detected B.parapertussis DNA PCR Not Detected C. pneumoniae DNA (PCR) Not Detected Coronavirus OC43 (PCR) Not Detected Coronavirus HKU1 (PCR) Not Detected Coronavirus 229E (PCR) Not Detected Coronavirus NL63 (PCR) Not Detected Human Metapneumovir PCR Not Detected Influenza A (RT-PCR) Not Detected Influenza B (RT-PCR) Not Detected M. pneumoniae (PCR) Not Detected Parainfluenza 1 (PCR) Not Detected Parainfluenza 2 (PCR) Not Detected Parainfluenza 3 (PCR) Not Detected Parainfluenza 4 (PCR) Not Detected RSV (PCR) Not Detected Entero/Rhino (PCR) Not Detected SARS-CoV-2 RNA (RT-PCR) Not Detected Medications Medications Current Medications Acetaminophen (Acetaminophen 325 Mg Tablet) 650 mg PO Q6H PRN PRN Reason: Headache/Pain Mild Scale (1-3) Al Hydroxide/Mg Hydroxide (Magnesium Hydrox/Alum Hydrox 30 Ml Oral.Susp) 30 ml PO Q6H PRN PRN Reason: Heartburn/Nausea Last Admin: 06/16/22 14:20 Dose: 30 ml Atenolol (Atenolol 100 Mg Tablet) 100 mg PO DAILY MAHENDRA; Protocol Last Admin: 06/19/22 09:53 Dose: 100 mg Benztropine Mesylate (Benztropine Mesylate 1 Mg Tablet) 2 mg PO DAILY [facility]ENDR[facility] Last Admin: 06/19/22 09:53 Dose: 2 mg Chlorpromazine HCl (Chlorpromazine Hcl 25 Mg Tablet) 25 mg PO Q6H PRN PRN Reason: Anxiety Last Admin: 06/18/22 23:22 Dose: 25 mg Clonidine HCl (Clonidine Hcl 0.1 Mg Tablet) 0.1 mg PO DAILY [facility]HENDRA; Protocol Last Admin: 06/19/22 09:53 Dose: 0.1 mg Clozapine (Clozapine 25 Mg Tablet) 62.5 mg PO BEDTIME MAHENDRA Last Admin: 06/18/22 19:55 Dose: 62.5 mg Clozapine (Clozapine 100 Mg Tablet) 100 mg PO BEDTIME MAHENDRA Last Admin: 06/18/22 19:57 Dose: 100 mg Clozapine (Clozapine 100 Mg Tablet) 100 mg PO DAILY [facility]HENDRA Last Admin: 06/19/22 09:54 Dose: 100 mg Fluticasone Propionate (Fluticasone Propionate Nasal 16 Gm [place]) 1 spray NOSTRIL-B DAILY [facility]ENDR[facility] Last Admin: 06/19/22 09:53 Dose: 1 spray Guaifenesin (Guaifenesin La 600 Mg Tab.Er.12h) 600 mg PO BID PRN PRN Reason: Congestion Last Admin: 06/18/22 08:37 Dose: 600 mg Guaifenesin/Dextromethorphan (Guaifenesin Dm 600/30 1 Tab Tab.Er.12h) 1 tab PO BEDTIME MAHENDRA Last Admin: 06/18/22 19:57 Dose: 1 tab Hydroxyzine HCl (Hydroxyzine Hcl 25 Mg Tablet) 25 mg PO Q6H PRN PRN Reason: Anxiety Last Admin: 06/18/22 17:45 Dose: 25 mg [place] Carbonate ([place] Carbonate Er 300 Mg Tablet.Er) 600 mg PO DAILY [facility] Last Admin: 06/19/22 09:53 Dose: 600 mg [place] Carbonate ([place] Carbonate 300 Mg Tablet) 1,050 mg PO BEDTIME [facility] Last Admin: 06/18/22 19:57 Dose: 1,050 mg Magnesium Hydroxide (Milk Of Magnesia 30 Ml Oral.Susp) 30 ml PO DAILY PRN PRN Reason: Constipation Multivitamins/Vitamin C (Multivitamin Tablet) 1 tab PO DAILY [facility] Last Admin: 06/19/22 09:53 Dose: 1 tab Nicotine Polacrilex (Nicotine Polacrilex 2 Mg Gum) 4 mg BUCCAL Q1H PRN PRN Reason: cravings Omeprazole (Omeprazole 20 Mg Capsule.Dr) 20 mg PO BID@0630,1630 [facility] Last Admin: 06/19/22 09:53 Dose: 20 mg Paliperidone Palmitate (Paliperidone Palmitate 234 Mg/1.5 Ml Syringe) 234 mg IM Q28D [facility] Last Admin: 06/13/22 15:01 Dose: Not Given Pharmacy Consult (Consult Rx Perform Med Rec) 1 each MISCELLANE ONCE PRN PRN Reason: Consult order Trazodone HCl (Trazodone Hcl 50 Mg Tablet) 50 mg PO BEDTIME PRN PRN Reason: Insomnia Allergies Allergies Allergy/AdvReac Type Severity Reaction Status Date / Time No Known Allergies Allergy Unverified 05/17/20 19:19 [No Known Allergies*] Assessment & Plan Assessment & Plan (1) Schizophrenia, chronic condition: Status: Acute Code(s): F20.9 - Schizophrenia, unspecified Plan Aftab is a 27-year-old male who carries a dx of schizophrenia. Has community Steven?s Order, in PACT program. Pt presented to [facility] due to reporting that he is homeless and he did not feel safe where he was (residing at [facility]), has been using cocaine and marijuana. Pt reports he has been adherent with his medications, Li level was 1.17. Pt endorsed assaultive ideation and presented as tangential, disorganized, and with poor insight. Recently discharged from [facility] after over 2 month admission, had been re-started on clozapine. Utox positive for cannabis only. Last invega sustenna dose 10/03/22. Plan: Pt reports med adherence, however has not been able to maintain in the community, has paranoid and grandiose delusions that lead to impulsive and unsafe decision making. May consider [facility] referral. Q15 min safety checks, CV Monitor response to medications. Monitor for safety in the milieu. Discharge on stabilization. Patient seen. Chart reviewed. Discussed with team. Obtain collateral contact info?as needed 06/14: continue current mgmt. may be essentially at his baseline. search for housing/program options. 06/15: stable, reasonably well. c/o feeling like a zombie and asking to decrease clozaril dosing. morning dose decreased by 25 mg, from 150 to 125. 06/16: c/o sedaton from clozaril. morning dose decreased from 125 mg to 100 mg as of tomorrow. 06/17: stable, up again in the morning today. continue current mgmt. 06/18 continue current tx. pending respiratory panel. 06/19: continue current mgmt. respiratory panel NEG. I spent __20____ minutes with the patient and/or on the patient floor today, greater than?50% of which was spent counseling/coordinating care. Reason for contiued inpatient stay Substantial Risk for: inability to function and rapid decompensation
[2022-06-19 20:30] VITALS: BP 130/80; PULSE 77; RESP 18; O2SAT 97
[2022-06-19] MEDS: cloZAPine 25 MG TABLET 62.5 MG PO (20:31)
[2022-06-19] MEDS: guaiFENesin DM 600/30 1 TAB TAB.ER.12H PO (20:32)
[2022-06-19] MEDS: Lithium Carbonate 300 MG TABLET 1050 MG PO (20:32)
[2022-06-20 06:00] VITALS: BP 125/75; PULSE 70; RESP 18; TEMP 36.8; O2SAT 98
[2022-06-20] MEDS: atenoloL 100 MG TABLET PO (10:17)
[2022-06-20] MEDS: Benztropine Mesylate 1 MG TABLET 2 MG PO (10:17)
[2022-06-20] MEDS: Lithium Carbonate ER 300 MG TABLET.ER 600 MG PO (10:17)
[2022-06-20] MEDS: Multivitamin TABLET 1 TAB PO (10:17)
[2022-06-20] MEDS: cloNIDine HCL 0.1 MG TABLET PO (10:18)
[2022-06-20] MEDS: cloZAPine 100 MG TABLET PO ×2 (10:18→20:14)
[2022-06-20] MEDS: guaiFENesin LA 600 MG TAB.ER.12H PO (10:18)
[2022-06-20] MEDS: Omeprazole 20 MG CAPSULE.DR PO ×2 (10:18→18:00)
[2022-06-20] MEDS: Fluticasone Propionate Nasal 16 GM SPRAY 1 SPRAY NOSTRIL-B (10:19)
--- NOTE | 2022-06-20 12:41 | HO.PSYCHPN ---
Subjective Subjective Date of Service: 06/20/22 Reason For Visit: Psychosis Interim History: calm, cooperative. up and about the unit. no complaints or requests. aware he has mtg with respite staff today. aware of hope to discharge to respite next week. unable to account for sudden decrease in his clozaril level while he was outpatient. per staff, isolative. c/o sore throat/congestion. no respiratory Sx overnight. not attending groups. low clozaril level. slept most of the night. Mental Status Exam Mental Status Exam Narrative: up and about. Casual attire, overweight, unkempt. fair eye contact, inattentive. No Tics or Tremors. No abnormal involuntary movements. Calm, cooperative. Non-pressured speech, normal volume. No prolonged speech latency or dysarthria. Mood is ?okay,? affect is calm. no SI/HI/AVH expressed. Thoughts are generally linear and logical. No known cognitive or memory impairment. Insight/ Judgment is poor. Diagnostics Vital Signs (24Hr): Vital Signs - 24 hr 06/19/22 20:30 06/20/22 06:00 Temperature 98.2 F Pulse Rate 77 70 Respiratory Rate 18 18 Blood Pressure 130/80 125/75 Pulse Oximetry 97 98 Oxygen Delivery Method Room Air Room Air BMI result Body Mass Index 28.1 Labs Results: 06/12/22 12:23 06/12/22 12:23 Labs: Laboratory Results - last 48 hr 06/13/22 06/19/22 18:47 08:42 Absolute Neuts (auto) 4.5 Clozapine 24 Norclozapine 25 Medications Medications Current Medications Acetaminophen (Acetaminophen 325 Mg Tablet) 650 mg PO Q6H PRN PRN Reason: Headache/Pain Mild Scale (1-3) Al Hydroxide/Mg Hydroxide (Magnesium Hydrox/Alum Hydrox 30 Ml Oral.Susp) 30 ml PO Q6H PRN PRN Reason: Heartburn/Nausea Last Admin: 06/16/22 14:20 Dose: 30 ml Atenolol (Atenolol 100 Mg Tablet) 100 mg PO DAILY MAHENDRA; Protocol Last Admin: 06/20/22 10:17 Dose: 100 mg Benztropine Mesylate (Benztropine Mesylate 1 Mg Tablet) 2 mg PO DAILY MAHENDRA Last Admin: 06/20/22 10:17 Dose: 2 mg Chlorpromazine HCl (Chlorpromazine Hcl 25 Mg Tablet) 25 mg PO Q6H PRN PRN Reason: Anxiety Last Admin: 06/18/22 23:22 Dose: 25 mg Clonidine HCl (Clonidine Hcl 0.1 Mg Tablet) 0.1 mg PO DAILY [facility]; Protocol Last Admin: 06/20/22 10:18 Dose: 0.1 mg Clozapine (Clozapine 25 Mg Tablet) 62.5 mg PO BEDTIME MAHENDRA Last Admin: 06/19/22 20:31 Dose: 62.5 mg Clozapine (Clozapine 100 Mg Tablet) 100 mg PO BEDTIME MAHENDRA Last Admin: 06/19/22 20:31 Dose: 100 mg Clozapine (Clozapine 100 Mg Tablet) 100 mg PO DAILY MAHENDRA Last Admin: 06/20/22 10:18 Dose: 100 mg Fluticasone Propionate (Fluticasone Propionate Nasal 16 Gm [place]) 1 spray NOSTRIL-B DAILY MAHENDRA Last Admin: 06/20/22 10:19 Dose: 1 spray Guaifenesin (Guaifenesin La 600 Mg Tab.Er.12h) 600 mg PO BID PRN PRN Reason: Congestion Last Admin: 06/20/22 10:18 Dose: 600 mg Guaifenesin/Dextromethorphan (Guaifenesin Dm 600/30 1 Tab Tab.Er.12h) 1 tab PO BEDTIME MAHENDRA Last Admin: 06/19/22 20:32 Dose: 1 tab Hydroxyzine HCl (Hydroxyzine Hcl 25 Mg Tablet) 25 mg PO Q6H PRN PRN Reason: Anxiety Last Admin: 06/18/22 17:45 Dose: 25 mg [place] Carbonate ([place] Carbonate Er 300 Mg Tablet.Er) 600 mg PO DAILY MAHENDRA Last Admin: 06/20/22 10:17 Dose: 600 mg [place] Carbonate ([place] Carbonate 300 Mg Tablet) 1,050 mg PO BEDTIME MAHENDRA Last Admin: 06/19/22 20:32 Dose: 1,050 mg Magnesium Hydroxide (Milk Of Magnesia 30 Ml Oral.Susp) 30 ml PO DAILY PRN PRN Reason: Constipation Multivitamins/Vitamin C (Multivitamin Tablet) 1 tab PO DAILY MAHENDRA Last Admin: 06/20/22 10:17 Dose: 1 tab Nicotine Polacrilex (Nicotine Polacrilex 2 Mg Gum) 4 mg BUCCAL Q1H PRN PRN Reason: cravings Omeprazole (Omeprazole 20 Mg Capsule.Dr) 20 mg PO BID@0630,1630 [facility] Last Admin: 06/20/22 10:18 Dose: 20 mg Paliperidone Palmitate (Paliperidone Palmitate 234 Mg/1.5 Ml Syringe) 234 mg IM Q28D [facility] Last Admin: 06/13/22 15:01 Dose: Not Given Pharmacy Consult (Consult Rx Perform Med Rec) 1 each MISCELLANE ONCE PRN PRN Reason: Consult order Trazodone HCl (Trazodone Hcl 50 Mg Tablet) 50 mg PO BEDTIME PRN PRN Reason: Insomnia Allergies Allergies Allergy/AdvReac Type Severity Reaction Status Date / Time No Known Allergies Allergy Unverified 05/17/20 19:19 [No Known Allergies*] Assessment & Plan Assessment & Plan (1) Schizophrenia, chronic condition: Status: Acute Code(s): F20.9 - Schizophrenia, unspecified Plan Aftab is a 27-year-old male who carries a dx of schizophrenia. Has community Steven?s Order, in PACT program. Pt presented to [facility] due to reporting that he is homeless and he did not feel safe where he was (residing at [facility]), has been using cocaine and marijuana. Pt reports he has been adherent with his medications, Li level was 1.17. Pt endorsed assaultive ideation and presented as tangential, disorganized, and with poor insight. Recently discharged from [facility] after over 2 month admission, had been re-started on clozapine. Utox positive for cannabis only. Last invega sustenna dose 06/02/22. Plan: Pt reports med adherence, however has not been able to maintain in the community, has paranoid and grandiose delusions that lead to impulsive and unsafe decision making. May consider [facility] referral. Q15 min safety checks, CV Monitor response to medications. Monitor for safety in the milieu. Discharge on stabilization. Patient seen. Chart reviewed. Discussed with team. Obtain collateral contact info?as needed 06/14: continue current mgmt. may be essentially at his baseline. search for housing/program options. 06/15: stable, reasonably well. c/o feeling like a zombie and asking to decrease clozaril dosing. morning dose decreased by 25 mg, from 150 to 125. 06/16: c/o sedaton from clozaril. morning dose decreased from 125 mg to 100 mg as of tomorrow. 06/17: stable, up again in the morning today. continue current mgmt. 06/18 continue current tx. pending respiratory panel. 06/19: continue current mgmt. respiratory panel NEG. 06/20: stable presentation. clozaril level at admission not consistent with outpatient compliance with the medication. respiratory Sx improving. hopeful for discharge to respite next week. stable. I spent ___25___ minutes with the patient and/or on the patient floor today, greater than?50% of which was spent counseling/coordinating care. Reason for contiued inpatient stay Substantial Risk for: inability to function and rapid decompensation
[2022-06-20] MEDS: hydrOXYzine HCL 25 MG TABLET PO (15:00)
[2022-06-20] MEDS: chlorproMAZINE HCl 25 MG TABLET PO (15:00)
[2022-06-20] MEDS: Lithium Carbonate 300 MG TABLET 1050 MG PO (20:08)
[2022-06-20 20:10] VITALS: BP 133/78; PULSE 84; RESP 16; TEMP 36.6; O2SAT 97
[2022-06-20] MEDS: cloZAPine 25 MG TABLET 62.5 MG PO (20:12)
[2022-06-20] MEDS: guaiFENesin DM 600/30 1 TAB TAB.ER.12H PO (20:13)
[2022-06-21 08:05] VITALS: BP 153/83; PULSE 104; RESP 17; TEMP 36.3; O2SAT 99
[2022-06-21] MEDS: Fluticasone Propionate Nasal 16 GM SPRAY 1 SPRAY NOSTRIL-B (08:06)
[2022-06-21] MEDS: Benztropine Mesylate 1 MG TABLET 2 MG PO (08:07)
[2022-06-21] MEDS: Multivitamin TABLET 1 TAB PO (08:07)
[2022-06-21] MEDS: Lithium Carbonate ER 300 MG TABLET.ER 600 MG PO (08:07)
[2022-06-21] MEDS: atenoloL 100 MG TABLET PO (08:08)
[2022-06-21] MEDS: cloZAPine 100 MG TABLET PO ×2 (08:08→20:00)
[2022-06-21] MEDS: Omeprazole 20 MG CAPSULE.DR PO ×2 (08:08→17:46)
[2022-06-21] MEDS: cloNIDine HCL 0.1 MG TABLET PO (08:08)
--- NOTE | 2022-06-21 08:13 | HO.PSYCHPN ---
Subjective Subjective Date of Service: 06/21/22 Reason For Visit: Psychosis Subjective Notes: Conditional Voluntary Guardianship: No Medical Problems Affecting Mental Status: No Interim History: Patient was seen and discussed in rounds today. Records and plans were reviewed. He has been calm, pleasant and cooperative. No complaints of depression or psychosis. No indications of response to internal stimuli. Eating and sleeping adequately. No SI. No changes were made today Medication Compliance: Yes Side effects from medications: No Attending Groups: Yes Review of Systems Review of Systems Yes all other systems are reviewed and are negative Mental Status Exam Mental Status Exam Narrative: In today's visit he is alert, oriented and pleasant. Normal speech. Good eye contact. Affect is appropriate and constricted. No signs of psychosis. No delusions. No SI. Cognitively intact. Judgment is intact Diagnostics Vital Signs (24Hr): Vital Signs - 24 hr 06/20/22 20:10 06/21/22 08:05 Temperature 97.9 F 97.4 F Pulse Rate 84 104 H Respiratory Rate 16 17 Blood Pressure 133/78 153/83 H Pulse Oximetry 97 99 Oxygen Delivery Method Room Air Room Air BMI result Body Mass Index 28.1 Labs Results: 06/12/22 12:23 06/12/22 12:23 Labs: Laboratory Results - last 48 hr 06/19/22 08:42 Absolute Neuts (auto) 4.5 Medications Medications Current Medications Acetaminophen (Acetaminophen 325 Mg Tablet) 650 mg PO Q6H PRN PRN Reason: Headache/Pain Mild Scale (1-3) Al Hydroxide/Mg Hydroxide (Magnesium Hydrox/Alum Hydrox 30 Ml Oral.Susp) 30 ml PO Q6H PRN PRN Reason: Heartburn/Nausea Last Admin: 06/16/22 14:20 Dose: 30 ml Atenolol (Atenolol 100 Mg Tablet) 100 mg PO DAILY MAHENDRA; Protocol Last Admin: 06/21/22 08:08 Dose: 100 mg Benztropine Mesylate (Benztropine Mesylate 1 Mg Tablet) 2 mg PO DAILY MAHENDRA Last Admin: 06/21/22 08:07 Dose: 2 mg Chlorpromazine HCl (Chlorpromazine Hcl 25 Mg Tablet) 25 mg PO Q6H PRN PRN Reason: Anxiety Last Admin: 06/20/22 15:00 Dose: 25 mg Clonidine HCl (Clonidine Hcl 0.1 Mg Tablet) 0.1 mg PO DAILY MAHENDRA; Protocol Last Admin: 06/21/22 08:08 Dose: 0.1 mg Clozapine (Clozapine 25 Mg Tablet) 62.5 mg PO BEDTIME MAHENDRA Last Admin: 06/20/22 20:12 Dose: 62.5 mg Clozapine (Clozapine 100 Mg Tablet) 100 mg PO BEDTIME MAHENDRA Last Admin: 06/20/22 20:14 Dose: 100 mg Clozapine (Clozapine 100 Mg Tablet) 100 mg PO DAILY [facility] Last Admin: 06/21/22 08:08 Dose: 100 mg Fluticasone Propionate (Fluticasone Propionate Nasal 16 Gm [place]) 1 spray NOSTRIL-B DAILY MAHENDRA Last Admin: 06/21/22 08:06 Dose: 1 spray Guaifenesin (Guaifenesin La 600 Mg Tab.Er.12h) 600 mg PO BID PRN PRN Reason: Congestion Last Admin: 06/20/22 10:18 Dose: 600 mg Guaifenesin/Dextromethorphan (Guaifenesin Dm 600/30 1 Tab Tab.Er.12h) 1 tab PO BEDTIME MAHENDRA Last Admin: 06/20/22 20:13 Dose: 1 tab Hydroxyzine HCl (Hydroxyzine Hcl 25 Mg Tablet) 25 mg PO Q6H PRN PRN Reason: Anxiety Last Admin: 06/20/22 15:00 Dose: 25 mg [place] Carbonate ([place] Carbonate Er 300 Mg Tablet.Er) 600 mg PO DAILY [facility] Last Admin: 06/21/22 08:07 Dose: 600 mg [place] Carbonate ([place] Carbonate 300 Mg Tablet) 1,050 mg PO BEDTIME MAHENDRA Last Admin: 06/20/22 20:08 Dose: 1,050 mg Magnesium Hydroxide (Milk Of Magnesia 30 Ml Oral.Susp) 30 ml PO DAILY PRN PRN Reason: Constipation Multivitamins/Vitamin C (Multivitamin Tablet) 1 tab PO DAILY [facility] Last Admin: 06/21/22 08:07 Dose: 1 tab Nicotine Polacrilex (Nicotine Polacrilex 2 Mg Gum) 4 mg BUCCAL Q1H PRN PRN Reason: cravings Omeprazole (Omeprazole 20 Mg Capsule.Dr) 20 mg PO BID@0630,1630 [facility] Last Admin: 06/21/22 08:08 Dose: 20 mg Paliperidone Palmitate (Paliperidone Palmitate 234 Mg/1.5 Ml Syringe) 234 mg IM Q28D [facility] Last Admin: 06/13/22 15:01 Dose: Not Given Pharmacy Consult (Consult Rx Perform Med Rec) 1 each MISCELLANE ONCE PRN PRN Reason: Consult order Trazodone HCl (Trazodone Hcl 50 Mg Tablet) 50 mg PO BEDTIME PRN PRN Reason: Insomnia Allergies Allergies Allergy/AdvReac Type Severity Reaction Status Date / Time No Known Allergies Allergy Unverified 05/17/20 19:19 [No Known Allergies*] Assessment & Plan Assessment & Plan (1) Schizophrenia, chronic condition: Status: Acute Code(s): F20.9 - Schizophrenia, unspecified Plan Aftab is a 27-year-old male who carries a dx of schizophrenia. Has community Steven?s Order, in PACT program. Pt presented to [facility] due to reporting that he is homeless and he did not feel safe where he was (residing at [facility]), has been using cocaine and marijuana. Pt reports he has been adherent with his medications, Li level was 1.17. Pt endorsed assaultive ideation and presented as tangential, disorganized, and with poor insight. Recently discharged from [facility] after over 2 month admission, had been re-started on clozapine. Utox positive for cannabis only. Last invega sustenna dose 06/02/22. Plan: Pt reports med adherence, however has not been able to maintain in the community, has paranoid and grandiose delusions that lead to impulsive and unsafe decision making. May consider [facility] referral. Q15 min safety checks, CV Monitor response to medications. Monitor for safety in the milieu. Discharge on stabilization. Patient seen. Chart reviewed. Discussed with team. Obtain collateral contact info?as needed 06/14: continue current mgmt. may be essentially at his baseline. search for housing/program options. 06/15: stable, reasonably well. c/o feeling like a zombie and asking to decrease clozaril dosing. morning dose decreased by 25 mg, from 150 to 125. 06/16: c/o sedaton from clozaril. morning dose decreased from 125 mg to 100 mg as of tomorrow. 06/17: stable, up again in the morning today. continue current mgmt. 06/18 continue current tx. pending respiratory panel. 06/19: continue current mgmt. respiratory panel NEG. 06/20: stable presentation. clozaril level at admission not consistent with outpatient compliance with the medication. respiratory Sx improving. hopeful for discharge to respite next week. stable. 06/21: Continue current regimen and plans I spent minutes with the patient and/or on the patient floor today, greater than?50% of which was spent counseling/coordinating care. Reason for contiued inpatient stay Substantial Risk for: med/psych decompensation
[2022-06-21] MEDS: Magnesium Hydrox/Alum Hydrox 30 ML ORAL.SUSP PO (12:40)
[2022-06-21] MEDS: hydrOXYzine HCL 25 MG TABLET PO (12:42)
[2022-06-21] MEDS: chlorproMAZINE HCl 25 MG TABLET PO (14:00)
[2022-06-21 19:50] VITALS: BP 147/91; PULSE 94; RESP 18; TEMP 36.6; O2SAT 97
[2022-06-21] MEDS: guaiFENesin DM 600/30 1 TAB TAB.ER.12H PO (20:00)
[2022-06-21] MEDS: cloZAPine 25 MG TABLET 62.5 MG PO (20:00)
[2022-06-21] MEDS: Lithium Carbonate 300 MG TABLET 1050 MG PO (20:01)
[2022-06-22 08:37] VITALS: BP 166/80; PULSE 100; RESP 17; TEMP 36.4; O2SAT 96
[2022-06-22] MEDS: Fluticasone Propionate Nasal 16 GM SPRAY 1 SPRAY NOSTRIL-B (09:02)
[2022-06-22] MEDS: Lithium Carbonate ER 300 MG TABLET.ER 600 MG PO (09:02)
[2022-06-22] MEDS: Benztropine Mesylate 1 MG TABLET 2 MG PO (09:03)
[2022-06-22] MEDS: cloZAPine 100 MG TABLET PO ×2 (09:03→20:10)
[2022-06-22] MEDS: atenoloL 100 MG TABLET PO (09:03)
[2022-06-22] MEDS: Multivitamin TABLET 1 TAB PO (09:04)
[2022-06-22] MEDS: Omeprazole 20 MG CAPSULE.DR PO ×2 (09:04→16:26)
[2022-06-22] MEDS: cloNIDine HCL 0.1 MG TABLET PO (09:04)
--- NOTE | 2022-06-22 09:41 | P.PNPSI_ITS ---
Subjective Subjective Date of Service: 06/22/22 Reason For Visit: Psychosis Subjective Notes: Conditional Voluntary Guardianship: No Medical Problems Affecting Mental Status: No Interim History: Patient was seen and discussed in rounds today. Records and plans were reviewed. He has been stable and is doing well. He is taking his medications, including the Clozaril. He denies any side effects. Eating and sleeping well. No changes were made today. No SI. Medication Compliance: Yes Side effects from medications: No Attending Groups: Yes Review of Systems Review of Systems Yes all other systems are reviewed and are negative Mental Status Exam Mental Status Exam Narrative: In today's visit he is alert, oriented and pleasant. Normal speech. Good eye contact. Affect is appropriate and constricted. No acute signs of psychosis. No delusions. No SI. Cognitively intact. Judgment is intact Diagnostics Vital Signs (24Hr): Vital Signs - 24 hr 06/21/22 19:50 06/22/22 08:37 Temperature 98 F 97.6 F Pulse Rate 94 100 Respiratory Rate 18 17 Blood Pressure 147/91 H 166/80 H Pulse Oximetry 97 96 Oxygen Delivery Method Room Air Room Air BMI result Body Mass Index 28.1 Labs Results: 06/12/22 12:23 06/12/22 12:23 Medications Medications Current Medications Acetaminophen (Acetaminophen 325 Mg Tablet) 650 mg PO Q6H PRN PRN Reason: Headache/Pain Mild Scale (1-3) Al Hydroxide/Mg Hydroxide (Magnesium Hydrox/Alum Hydrox 30 Ml Oral.Susp) 30 ml PO Q6H PRN PRN Reason: Heartburn/Nausea Last Admin: 06/21/22 12:40 Dose: 30 ml Atenolol (Atenolol 100 Mg Tablet) 100 mg PO DAILY MAHENDRA; Protocol Last Admin: 06/22/22 09:03 Dose: 100 mg Benztropine Mesylate (Benztropine Mesylate 1 Mg Tablet) 2 mg PO DAILY MAHENDRA Last Admin: 06/22/22 09:03 Dose: 2 mg Chlorpromazine HCl (Chlorpromazine Hcl 25 Mg Tablet) 25 mg PO Q6H PRN PRN Reason: Anxiety Last Admin: 06/21/22 14:00 Dose: 25 mg Clonidine HCl (Clonidine Hcl 0.1 Mg Tablet) 0.1 mg PO DAILY MAHENDRA; Protocol Last Admin: 06/22/22 09:04 Dose: 0.1 mg Clozapine (Clozapine 25 Mg Tablet) 62.5 mg PO BEDTIME [facility] Last Admin: 06/21/22 20:00 Dose: 62.5 mg Clozapine (Clozapine 100 Mg Tablet) 100 mg PO BEDTIME [facility] Last Admin: 06/21/22 20:00 Dose: 100 mg Clozapine (Clozapine 100 Mg Tablet) 100 mg PO DAILY [facility] Last Admin: 06/22/22 09:03 Dose: 100 mg Fluticasone Propionate (Fluticasone Propionate Nasal 16 Gm [place]) 1 spray NOSTRIL-B DAILY [facility] Last Admin: 06/22/22 09:02 Dose: 1 spray Guaifenesin (Guaifenesin [place] 600 Mg Tab.Er.12h) 600 mg PO BID PRN PRN Reason: Congestion Last Admin: 06/20/22 10:18 Dose: 600 mg Guaifenesin/Dextromethorphan (Guaifenesin Dm 600/30 1 Tab Tab.Er.12h) 1 tab PO BEDTIME [facility] Last Admin: 06/21/22 20:00 Dose: 1 tab Hydroxyzine HCl (Hydroxyzine Hcl 25 Mg Tablet) 25 mg PO Q6H PRN PRN Reason: Anxiety Last Admin: 06/21/22 12:42 Dose: 25 mg [place] Carbonate ([place] Carbonate Er 300 Mg Tablet.Er) 600 mg PO DAILY [facility] Last Admin: 06/22/22 09:02 Dose: 600 mg [place] Carbonate ([place] Carbonate 300 Mg Tablet) 1,050 mg PO BEDTIME [facility] Last Admin: 06/21/22 20:01 Dose: 1,050 mg Magnesium Hydroxide (Milk Of Magnesia 30 Ml Oral.Susp) 30 ml PO DAILY PRN PRN Reason: Constipation Multivitamins/Vitamin C (Multivitamin Tablet) 1 tab PO DAILY [facility] Last Admin: 06/22/22 09:04 Dose: 1 tab Nicotine Polacrilex (Nicotine Polacrilex 2 Mg Gum) 4 mg BUCCAL Q1H PRN PRN Reason: cravings Omeprazole (Omeprazole 20 Mg Capsule.Dr) 20 mg PO BID@0630,1630 [facility] Last Admin: 06/22/22 09:04 Dose: 20 mg Paliperidone Palmitate (Paliperidone Palmitate 234 Mg/1.5 Ml Syringe) 234 mg IM Q28D [facility] Last Admin: 06/13/22 15:01 Dose: Not Given Pharmacy Consult (Consult Rx Perform Med Rec) 1 each MISCELLANE ONCE PRN PRN Reason: Consult order Trazodone HCl (Trazodone Hcl 50 Mg Tablet) 50 mg PO BEDTIME PRN PRN Reason: Insomnia Allergies Allergies Allergy/AdvReac Type Severity Reaction Status Date / Time No Known Allergies Allergy Unverified 05/17/20 19:19 [No Known Allergies*] Assessment & Plan Assessment & Plan (1) Schizophrenia, chronic condition: Status: Acute Code(s): F20.9 - Schizophrenia, unspecified Plan Aftab is a 27-year-old male who carries a dx of schizophrenia. Has community Steven?[facility] Order, in PACT program. Pt presented to [facility] due to reporting that he is homeless and he did not feel safe where he was (residing at [facility]), has been using cocaine and marijuana. Pt reports he has been adherent with his medications, Li level was 1.17. Pt endorsed assaultive ideation and presented as tangential, disorganized, and with poor insight. Recently discharged from [facility] after over 2 month admission, had been re-started on clozapine. Utox positive for cannabis only. Last invega sustenna dose 06/02/22. Plan: Pt reports med adherence, however has not been able to maintain in the com [facility], has paranoid and grandiose delusions that lead to impulsive and unsafe decision making. May consider [facility] referral. Q15 min safety checks, CV Monitor response to medications. Monitor for safety in the milieu. Discharge on stabilization. Patient seen. Chart reviewed. Discussed with team. Obtain collateral contact info?as needed 06/14: continue current mgmt. may be essentially at his baseline. search for housing/program options. 06/15: stable, reasonably well. c/o feeling like a zombie and asking to decrease clozaril dosing. morning dose decreased by 25 mg, from 150 to 125. 06/16: c/o sedaton from clozaril. morning dose decreased from 125 mg to 100 mg as of tomorrow. 06/17: stable, up again in the morning today. continue current mgmt. 06/18 continue current tx. pending respiratory panel. 06/19: continue current mgmt. respiratory panel NEG. 06/20: stable presentation. clozaril level at admission not consistent with outpatient compliance with the medication. respiratory Sx improving. hopeful for discharge to respite next week. stable. 06/21: Continue current regimen and plans 06/22: Continue current plans and regimen I spent minutes with the patient and/or on the patient floor today, greater than?50% of which was spent counseling/coordinating care. Reason for contiued inpatient stay Substantial Risk for: med/psych decompensation
[2022-06-22] MEDS: chlorproMAZINE HCl 25 MG TABLET PO (15:17)
[2022-06-22] MEDS: Magnesium Hydrox/Alum Hydrox 30 ML ORAL.SUSP PO ×2 (16:48→21:59)
[2022-06-22] MEDS: hydrOXYzine HCL 25 MG TABLET PO (17:49)
[2022-06-22 20:00] VITALS: BP 124/79; PULSE 86; RESP 18; TEMP 36.3; O2SAT 95
[2022-06-22] MEDS: guaiFENesin DM 600/30 1 TAB TAB.ER.12H PO (20:09)
[2022-06-22] MEDS: cloZAPine 25 MG TABLET 62.5 MG PO (20:10)
[2022-06-22] MEDS: Acetaminophen 325 MG TABLET 650 MG PO (20:10)
[2022-06-22] MEDS: Lithium Carbonate 300 MG TABLET 1050 MG PO (20:10)
[2022-06-23] MEDS: Omeprazole 20 MG CAPSULE.DR PO ×2 (09:21→16:42)
[2022-06-23] MEDS: Multivitamin TABLET 1 TAB PO (09:21)
[2022-06-23] MEDS: Benztropine Mesylate 1 MG TABLET 2 MG PO (09:21)
[2022-06-23] MEDS: Lithium Carbonate ER 300 MG TABLET.ER 600 MG PO (09:21)
[2022-06-23] MEDS: atenoloL 100 MG TABLET PO (09:21)
[2022-06-23] MEDS: Fluticasone Propionate Nasal 16 GM SPRAY 1 SPRAY NOSTRIL-B (09:21)
[2022-06-23] MEDS: cloZAPine 100 MG TABLET PO ×2 (09:21→20:58)
[2022-06-23] MEDS: cloNIDine HCL 0.1 MG TABLET PO (09:21)
[2022-06-23 10:05] VITALS: BP 124/73; PULSE 76; RESP 16; TEMP 37.1; O2SAT 98
--- NOTE | 2022-06-23 13:52 | P.PNPSI_ITS ---
Subjective Subjective Date of Service: 06/23/22 Reason For Visit: Psychosis Interim History: no issues or complaints. stable, at baseline. Mental Status Exam Mental Status Exam Narrative: In today's visit he is alert, oriented and pleasant. Normal speech. Good eye contact. Affect is appropriate and constricted. No acute signs of psychosis. No delusions. No SI/SIBI/HI/AVH expressed. Cognitively intact. Judgment is intact Diagnostics Vital Signs (24Hr): Vital Signs - 24 hr 06/23/22 20:10 06/24/22 08:55 Temperature 97.8 F 98.1 F Pulse Rate 84 92 Respiratory Rate 16 16 Blood Pressure 137/84 128/83 Pulse Oximetry 97 97 Oxygen Delivery Method Room Air Room Air BMI result Body Mass Index 28.1 Labs Results: 06/24/22 10:10 06/24/22 10:10 Labs: Laboratory Results - last 48 hr 06/24/22 06/24/22 06/24/22 10:10 10:10 10:10 WBC 12.0 H RBC 4.89 Hgb 13.6 L Hct 40.3 L MCV 82.4 MCH 27.8 MCHC 33.7 RDW 12.8 Plt Count 244 MPV 9.9 Immature Gran % (Auto) 0.6 H Neut % (Auto) 77.7 H Lymph % (Auto) 17.1 L [place] % (Auto) 4.4 Eos % (Auto) 0.0 Baso % (Auto) 0.2 Lymph # (Auto) 2.1 [place] # (Auto) 0.5 Eos # (Auto) 0.0 Baso # (Auto) 0.0 Abs Immat Gran (auto) 0.07 H Absolute Neuts (auto) 9.3 H Absolute Nucleated RBC 0.000 Nucleated RBC % (auto) 0.0 Sodium 136 Potassium 3.7 Chloride 102 Carbon Dioxide 22 Anion Gap 16 BUN 13 Creatinine 0.82 Estim Creat Clear Calc 135.9 Estimated GFR > 60 Random Glucose 185 H Calcium 9.6 Total Bilirubin 0.4 Direct Bilirubin < 0.2 AST 29 ALT 59 H Alkaline Phosphatase 147 H Total Protein 7.0 Albumin 4.1 [place] 1.08 COVID-19 ([facility]) COVID-19 Clin Com 06/24/22 10:12 WBC RBC Hgb Hct MCV MCH MCHC RDW Plt Count MPV Immature Gran % (Auto) Neut % (Auto) Lymph % (Auto) [place] % (Auto) Eos % (Auto) Baso % (Auto) Lymph # (Auto) [place] # (Auto) Eos # (Auto) Baso # (Auto) Abs Immat Gran (auto) Absolute Neuts (auto) Absolute Nucleated RBC Nucleated RBC % (auto) Sodium Potassium Chloride Carbon Dioxide Anion Gap BUN Creatinine Estim Creat Clear Calc Estimated GFR Random Glucose Calcium Total Bilirubin Direct Bilirubin AST ALT Alkaline Phosphatase Total Protein Albumin [place] COVID-19 ([facility]) Negative COVID-19 Clin Com See Note Medications Allergies Allergies Allergy/AdvReac Type Severity Reaction Status Date / Time No Known Allergies Allergy Unverified 05/17/20 19:19 [No Known Allergies*] Assessment & Plan Assessment & Plan (1) Schizophrenia, chronic condition: Status: Acute Code(s): F20.9 - Schizophrenia, unspecified Plan Aftab is a 27-year-old male who carries a dx of schizophrenia. Has community [employer]?[facility] Order, in PACT program. Pt presented to [facility] ED due to reporting that he is homeless and he did not feel safe where he was (residing at [facility]), has been using cocaine and marijuana. Pt reports he has been adherent with his medications, Li level was 1.17. Pt endorsed assaultive ideation and presented as tangential, disorganized, and with poor insight. Recently discharged from [facility] after over 2 month admission, had been re-started on clozapine. Utox positive for cannabis only. Last invega sustenna dose 06/02/22. Plan: Pt reports med adherence, however has not been able to maintain in the community, has paranoid and grandiose delusions that lead to impulsive and unsafe decision making. May consider [facility] referral. Q15 min safety checks, CV Monitor response to medications. Monitor for safety in the milieu. Discharge on stabilization. Patient seen. Chart reviewed. Discussed with team. Obtain collateral contact info?as needed 06/14: continue current mgmt. may be essentially at his baseline. search for housing/program options. 06/15: stable, reasonably well. c/o feeling like a zombie and asking to decrease clozaril dosing. morning dose decreased by 25 mg, from 150 to 125. 06/16: c/o sedaton from clozaril. morning dose decreased from 125 mg to 100 mg as of tomorrow. 06/17: stable, up again in the morning today. continue current mgmt. 06/18 continue current tx. pending respiratory panel. 06/19: continue current mgmt. respiratory panel NEG. 06/20: stable presentation. clozaril level at admission not consistent with outpatient compliance with the medication. respiratory Sx improving. hopeful for discharge to respite next week. stable. 06/21: Continue current regimen and plans 06/22: Continue current plans and regimen 06/23: stable, DC to respite tomorrow. I spent ___15___ minutes with the patient and/or on the patient floor today, greater than?50% of which was spent counseling/coordinating care. Reason for contiued inpatient stay Substantial Risk for: inability to function and rapid decompensation
[2022-06-23] MEDS: hydrOXYzine HCL 25 MG TABLET PO (18:41)
[2022-06-23 20:10] VITALS: BP 137/84; PULSE 84; RESP 16; TEMP 36.6; O2SAT 97
[2022-06-23] MEDS: cloZAPine 25 MG TABLET 62.5 MG PO (20:52)
[2022-06-23] MEDS: Lithium Carbonate 300 MG TABLET 1050 MG PO (20:56)
[2022-06-23] MEDS: guaiFENesin DM 600/30 1 TAB TAB.ER.12H PO (20:57)
[2022-06-24 08:55] VITALS: BP 128/83; PULSE 92; RESP 16; TEMP 36.7; O2SAT 97
[2022-06-24] MEDS: Multivitamin TABLET 1 TAB PO (09:08)
[2022-06-24] MEDS: Omeprazole 20 MG CAPSULE.DR PO (09:08)
[2022-06-24] MEDS: cloNIDine HCL 0.1 MG TABLET PO (09:08)
[2022-06-24] MEDS: cloZAPine 100 MG TABLET PO (09:08)
[2022-06-24] MEDS: Lithium Carbonate ER 300 MG TABLET.ER 600 MG PO (09:08)
[2022-06-24] MEDS: Benztropine Mesylate 1 MG TABLET 2 MG PO (09:08)
[2022-06-24] MEDS: Fluticasone Propionate Nasal 16 GM SPRAY 1 SPRAY NOSTRIL-B (09:09)
[2022-06-24] MEDS: atenoloL 100 MG TABLET PO (09:09)
[2022-06-24 10:20] LABS: MANUAL DIFF FLAG NO
[2022-06-24 10:28] LABS: Basophils Percent Auto 0.2 % (0-2); Hematocrit 40.3 % (42.0-52.0); Hemoglobin 13.6 g/dl (14.0-18.0); Imm Gran Abs Auto 0.07 X10*3/uL (0.00-0.03); Imm Gran Pct Auto 0.6 % (0.0-0.4); Lymphocytes Absolute Auto 2.1 X10*3/uL (1.2-4.9); Lymphocytes Percent Auto 17.1 % (20-40); Mean Corpuscular HGB Conc 33.7 g/dl (31.0-36.0); Mean Corpuscular Hemoglobin 27.8 pg (27.0-33.0); Mean Corpuscular Volume 82.4 fL (80.0-98.0); Mean Platelet Volume 9.9 fL (9.4-12.4); Monocytes Absolute Auto 0.5 X10*3/uL (0.1-1.2); Monocytes Percent Auto 4.4 % (2-11); Neutrophils Absolute Auto 9.3 x10*3/uL (2.0-8.3); Neutrophils Percent Auto 77.7 % (45-73); Platelet Count 244 X10*3/uL (160-400); Red Blood Count 4.89 X10*6/uL (4.60-5.80); Red Cell Distribution Width 12.8 % (11.0-16.0)
[2022-06-24 10:42] LABS: COVID-19 Test Negative (Negative); IDNOW Serial# 16C4AD1C
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
[2022-06-24 11:05] LABS: Lithium 1.08 mmol/L (0.60-1.20)
[2022-06-24 11:09] LABS: Alanine Aminotransferase 59 U/L (0-40); Albumin Level 4.1 g/dL (3.5-5.0); Alkaline Phosphatase 147 U/L (39-117); Anion Gap 16 (12-20); Aspartate Amino Transferase 29 U/L (5-37); Bilirubin Direct < 0.2 mg/dL (0.0-0.5); Bilirubin Total 0.4 mg/dL (0.0-1.0); Blood Urea Nitrogen 13 mg/dL (9-16); Calcium 9.6 mg/dL (8.4-10.2); Carbon Dioxide 22 mmol/L (22-29); Chloride 102 mmol/L (96-108); Creatinine Clr Calc Pharmacy 135.9; Estimated Glomerular Filt Rate > 60; Glucose Random 185 mg/dL (60-115); Potassium 3.7 mmol/L (3.3-5.1); Sodium 136 mmol/L (135-145)
--- NOTE | 2022-06-24 11:16 | PC.NURSE ---
Aftab is alert, fully oreinted, pleasant and cooperative with discharge process. He denies ideation, plan or intent to harm self or others. He agrees to discharge plan including disposition is respite with ride from [facility] team. He denies physical complaint.
[2022-06-28 17:36] LABS: Clozapine (Clozaril) 416 mcg/L; Norclozapine 149 mcg/L (25-400)
== END 2022-06-24 11:05 | DRG 750 ==
LOC: HO.ED 15:49 → HO.PADLT16 22:33
PROVIDERS: Nurse Practitioner Family; Registered Nurse; Admitting Provider Psychiatry & Neurology Psychiatry; Emergency Provider Student in an Organized Health Care Education/Training Program; PCP Family Medicine; Visit Provider Psychiatry & Neurology Psychiatry
DX: F25.0 Schizoaffective disorder, bipolar type (principal); R45.851 Suicidal ideations; Z59.01 Sheltered homelessness; E66.3 Overweight; Z68.28 Body mass index [BMI] 28.0-28.9, adult; F17.210 Nicotine dependence, cigarettes, uncomplicated; Z20.822 Contact with and (suspected) exposure to COVID-19; Z71.6 Tobacco abuse counseling; Z79.51 Long term (current) use of inhaled steroids; Z79.899 Other long term (current) drug therapy
CPT/HCPCS: 36415; 80048; 80053; 80061; 80076; 80159; 80178; 80307; 82077; 82607; 82746; 83036; 83735; 84439; 84443; 85025; 85048; 87633; 87635; 90792; 93005; 99285

== ENCOUNTER → 2023-05-20 11:20 | Outpatient (REF) | payer OTHER, SELFPAY ==
--- NOTE | 2023-05-20 11:37 | ECG_ITS ---
Test Reason : qt check Blood Pressure : / mmHG Vent. Rate : 076 BPM Atrial Rate : 076 BPM P-R Int : 158 ms QRS Dur : 086 ms QT Int : 364 ms P-R-T Axes : 036 077 055 degrees QTc Int : 409 ms Normal sinus rhythm with sinus arrhythmia Normal ECG When compared with ECG of 12-JUN-2022 21:28, No significant change was found Referred By: RADHA PHELAN Electronically Signed By:ERIC LOMBARDO
== END ==
LOC: HO.CARD 11:20
PROVIDERS: PCP Family Medicine; Visit Provider Nurse Practitioner Psychiatric/Mental Health
DX: Z79.899 Other long term (current) drug therapy (principal)
CPT/HCPCS: 93005